=== PATIENT | female | born 1940 | race Caucasian/White ===

== ENCOUNTER → 2017-08-10 | Outpatient (CLI) | payer MEDICARE ==
[2017-08-10 15:49] LABS: Hemoglobin 14.8 g/dL (11.5-16.0)
[2017-08-10 15:58] LABS: Albumin, Blood 3.5 g/dL (3.4-5.0); Anion Gap 9 mmol/L (6-16); Blood Urea Nitrogen 12 mg/dL (8-24); Bun/Creatinine Ratio 10.1 (12.0-20.0); CO2, Blood 23 mmol/L (21-32); Chloride, Blood 110 mmol/L (98-108); Creatinine, Blood 1.19 mg/dL (0.40-1.00); Glomerular Filtration Rate 47 (60-); Glucose, Blood 117 mg/dL (70-99); Phosphorus, Blood 2.7 mg/dL (2.5-4.9); Potassium, Blood 4.7 mmol/L (3.5-5.5); Sodium, Blood 142 mmol/L (136-145)
== END | disposition home or self-care (01) ==
LOC: OLS 15:06 → LAB SHORT 15:06
PROVIDERS: Internal Medicine
DX: N18.3 Chronic kidney disease, stage 3 (moderate) (principal); D63.1 Anemia in chronic kidney disease; N25.81 Secondary hyperparathyroidism of renal origin
CPT/HCPCS: 36415; 80069; 82570; 83970; 84156; 85014; 85018

== ENCOUNTER 2018-04-10 08:47 | Day surgery (SDC) | payer MEDICARE | END 2018-04-10 22:44 | disposition home or self-care (01) | LOC: MOI US 08:47 | PROC: 0HBT3ZX Excision of Right Breast, Percutaneous Approach, Diagnostic (ICD-10-PCS; principal; 2018-04-10) | DX: D24.1 Benign neoplasm of right breast (principal); N60.81 Other benign mammary dysplasias of right breast | CPT/HCPCS: 19083; 77065; 88305; 88342; A4648; G0279 ==

== ENCOUNTER 2018-06-05 08:51 | Day surgery (SDC) | payer MEDICARE ==
[2018-06-05] MEDS ORDERED: LISI20 PO (11:29)
[2018-06-05] MEDS ORDERED: SIMV40 PO (11:30)
[2018-06-05] MEDS ORDERED: Norco 5-325 Ta1 EACH PO (11:31)
[2018-06-05] MEDS ORDERED: NOVOLIN SC (11:31)
== END 2018-06-05 22:51 | disposition home or self-care (01) ==
LOC: MOI US 08:51
PROC: BH40ZZZ Ultrasonography of Right Breast (ICD-10-PCS; principal; 2018-06-05)
DX: N63.41 Unspecified lump in right breast, subareolar (principal)
CPT/HCPCS: 19285; 77065

== ENCOUNTER 2018-06-09 08:55 | Day surgery (SDC) | payer MEDICARE ==
[~2018-06-09] VITALS: Ht 152.4 cm; Wt 137.0 kg
[~2018-06-09 08:55] MED LIST: LISI20 PO; NOVOLIN SC; Norco 5-325 Ta1 EACH PO; SIMV40 PO
--- NOTE | 2018-06-09 09:59 | NUR ---
INTO [facility]. History, Chart, Medications and Allergies reviewed before start of procedure.Patient confirms NPO status and agrees with scheduled surgery. Lungs clear T/O to Auscultation. Surgical site prepped with 2% Chlorhexidine cloth wipe.
--- NOTE | 2018-06-09 12:39 | NUR ---
PATIENT STATES PAIN IS NOT IN HER BREAST BUT IN HER BACK/TAILBONE AREA AND RADIATES DOWN HER LEFT LEG, THIS IS CHRONIC PAIN. STATES SHE COULD HARDLY GET OUT OF BED LAST NIGHT. PATIENT TAKES NORCO AT HOME AT BASELINE.
--- NOTE | 2018-06-09 12:44 | NUR ---
PATIENT REPOSITIONED AGAIN, UP LONG ENOUGH TO EAT SOME JELLO AND TAKE A PAIN PILL, COULDN'T TOLERATE HER SCIATIC PAIN AND REQUESTED TO BE LAID BACK DOWN. PATIENT ADMITS, SHE IS A "LAZY BREATHER" AND WHEN REMINDED TO TAKE PURPOSEFUL DEEP BREATHS SHE ON RA IS AT UP TO 96%. HOWEVER WHEN NOT REMINDED, SHE DROPS TO 89%. 2 L NC PLACED FOR SUPPORT. PLAN TO ALLOW HER TO REST AND ATTEMPT TO SLEEP WHILE THE PAIN PILL COMES UP TO EFFECTIVENESS. ADDITIONALLY, SHE STATES HER LEGS FEEL LIKE HEAVY OSCAR AND SHE DOESN'T THINK SHE COULD STAND RIGHT NOW. I REASSURED HER THAT SHE DOES NOT HAVE TO STAND YET AND WE WOULD GET HER UP TO THE SIDE OF THE BED TO TRIAL BEFORE ATTEMPTING TO STAND OR AMBULATE. PATIENT ABLE TO EASILY MOVE BLE, GOOD SENSATION AND CIRCULATION PRESENT. WILL MONITOR WHILE PATIENT SLEEPS. 98% ON 2 L NC AT THIS TIME.
--- NOTE | 2018-06-09 13:34 | NUR ---
PATIENT UP TO BEDSIDE, WITH STOOL FOR FEET. PATIENT USED WALKER TO REPOSITION HERSELF WITH MINIMAL ASSIST. PATIENT WAS PAINFUL DURING MOVEMENT, BUT APPEARS MORE COMFORTABLE NOW. ABLE TO TAKE IN MORE JELLO AND SOME JUDY CRACKERS, WELL SIP SOME WATER. WILL GO OVER D/C INSTRUCTIONS AND REASSESS FOR D/C HOME. PATIENT NOW ON RA, AND MAINTAINING 92%-95%.
--- NOTE | 2018-06-09 14:09 | NUR ---
PATIENT SUCCESSFUL WITH UP TO BEDSIDE TRIAL. ASSISTANCE TO DRESS, MOSTLY COMPLETED BY THE PATIENT. D/C INSTRUCTIONS GIVEN WITH STATED UNDERSTANDING AND RIDE IS REACHED AND ON HER WAY. PATIENT AWAITING THE RESTROOM PRIOR TO LEAVING DEPARTMENT. UP IN REGULAR BARIATRIC WHEELCHAIR WITH LIMITED DIFFICULTY DUE TO BACK PAIN.
== END 2018-06-09 14:33 | disposition home or self-care (01) ==
LOC: RAD 08:55 → ORSCMMR 09:00 → ORD 11:00 → RAD 14:33
DX: D24.1 Benign neoplasm of right breast (principal); I12.9 Hypertensive chronic kidney disease with stage 1 through stage 4 chronic kidney disease, or unspecified chronic kidney disease; E11.22 Type 2 diabetes mellitus with diabetic chronic kidney disease; N18.3 Chronic kidney disease, stage 3 (moderate); E78.00 Pure hypercholesterolemia, unspecified; Z79.899 Other long term (current) drug therapy; Z79.82 Long term (current) use of aspirin; Z88.0 Allergy status to penicillin
CPT/HCPCS: 76098; 82947; A9270-GY; J0690; J1100; J2405; J2704; J7120; Q9968

== ENCOUNTER 2018-09-22 23:42 | Inpatient (IN) | payer MEDICARE ==
[~2018-09-22] VITALS: Ht 154.9 cm; Wt 127.7 kg
[~2018-09-22 23:42] MED LIST changes: -LISI20 PO; -NOVOLIN SC; +Percocet 5-3251 EACH PO; -SIMV40 PO
[2018-09-23 02:56] LABS: Source, Urine Catheter
[2018-09-23 03:02] LABS: Appearance, Urine Turbid (Clear); Bilirubin, Urine Neg (Neg); Blood, Urine 4+ (Neg); Color, Urine Pale Yellow (P-Yellow); Glucose Qualitative, Urine Neg (Neg); Ketones, Urine Neg (Neg); Leukocyte Esterase, Urine 3+ (Neg); Nitrite, Urine Pos (Neg); Protein, Urine 3+ (Neg); Specific Gravity, Urine 1.015 (1.003-1.022); Urobilinogen, Urine NORM (Normal)
[2018-09-23 03:13] LABS: BASOPHILS ABSOLUTE AUTO 0.02 K/mm3 (0.00-0.23); BASOPHILS PERCENT AUTO 0 % (0-2); EOSINOPHILS ABSOLUTE AUTO 0.01 K/mm3 (0.00-0.68); EOSINOPHILS PERCENT AUTO 0 % (0-6); Hematocrit 32.9 % (33.0-51.0); Hemoglobin 10.2 g/dL (11.5-16.0); IMMATURE GRAN ABSOLUTE AUTO 0.08 K/mm3 (0.00-0.10); IMMATURE GRAN PERCENT AUTO 1 % (0-1); LYMPHOCYTES ABSOLUTE AUTO 0.64 K/mm3 (0.84-5.20); LYMPHOCYTES PERCENT AUTO 10 % (21-46); MONOCYTES ABSOLUTE AUTO 0.83 K/mm3 (0.16-1.47); MONOCYTES PERCENT AUTO 13 % (4-13); Mean Corpuscular HGB 30.8 pg (26.0-34.0); Mean Corpuscular Volume 99 fL (80-100); NEUTROPHILS ABSOLUTE AUTO 4.95 K/mm3 (1.96-9.15); NEUTROPHILS PERCENT AUTO 76 % (41-73); Platelet Count 178 K/mm3 (150-400); RDW Coefficient Variation 14.2 % (11.7-14.2); Red Blood Cell Count 3.31 M/mm3 (3.80-5.20); White Blood Cell Count 6.53 K/mm3 (4.00-11.30)
[2018-09-23 03:16] LABS: Bacteria Many /hpf; Red Blood Cells, Urine Rare /hpf (0-2); Squamous Epithelial Cells Not Seen /hpf (Few); White Blood Cells, Urine TNTC /hpf (0-5)
[2018-09-23 03:31] LABS: Albumin, Blood 2.3 g/dL (3.4-5.0); Albumin/Globulin Ratio 0.6 (0.8-1.8); Bilirubin, Total 1.1 mg/dL (0.1-1.0); Bun/Creatinine Ratio 19.1 (12.0-20.0); Calcium, Blood 8.5 mg/dL (8.5-10.1); Creatinine, Blood 1.88 mg/dL (0.40-1.00); Potassium, Blood 4.9 mmol/L (3.5-5.5); Total Protein, Blood 6.3 g/dL (6.4-8.2)
[2018-09-23 08:53] LABS: BASOPHILS ABSOLUTE AUTO 0.02 K/mm3 (0.00-0.23); BASOPHILS PERCENT AUTO 0 % (0-2); EOSINOPHILS ABSOLUTE AUTO 0.01 K/mm3 (0.00-0.68); EOSINOPHILS PERCENT AUTO 0 % (0-6); Hematocrit 34.2 % (33.0-51.0); Hemoglobin 10.6 g/dL (11.5-16.0); IMMATURE GRAN ABSOLUTE AUTO 0.07 K/mm3 (0.00-0.10); IMMATURE GRAN PERCENT AUTO 1 % (0-1); LYMPHOCYTES ABSOLUTE AUTO 0.73 K/mm3 (0.84-5.20); LYMPHOCYTES PERCENT AUTO 12 % (21-46); MONOCYTES ABSOLUTE AUTO 0.68 K/mm3 (0.16-1.47); MONOCYTES PERCENT AUTO 11 % (4-13); Mean Corpuscular HGB 30.5 pg (26.0-34.0); Mean Corpuscular Volume 99 fL (80-100); Mean Platelet Volume 10.1 fL (9.1-12.4); NEUTROPHILS ABSOLUTE AUTO 4.58 K/mm3 (1.96-9.15); NEUTROPHILS PERCENT AUTO 75 % (41-73); Platelet Count 181 K/mm3 (150-400); RDW Coefficient Variation 14.2 % (11.7-14.2); RDW Standard Deviation 51.1 fL (35.1-46.3); Red Blood Cell Count 3.47 M/mm3 (3.80-5.20); White Blood Cell Count 6.09 K/mm3 (4.00-11.30)
[2018-09-23] MEDS ORDERED: Humulin N100 UNIT/1 SC (09:18)
[2018-09-23] MEDS ORDERED: Econazole Nitra15 GM TP (09:18)
--- NOTE | 2018-09-23 12:42 | NUR ---
PT OFF FLOOR FOR ENDOSCOPY.
--- NOTE | 2018-09-23 12:42 | NUR ---
INTO [facility] ADMISSION STARTED DR CASTORENA AT BEDSIDE
--- NOTE | 2018-09-23 15:50 | NUR ---
PT RETURNED FROM DAY SURGERY AND IS AO X 2 ON ARRIVAL TO PCU. VSS CHARTED. PT VERY SOMNOLENT. SLEEPS FOR NEXT FEW HOURS. PT WILL EAT CLEAR LIQUIDS FOR DINNER AND THEN ADVANCE TOLERATED.
--- NOTE | 2018-09-23 16:15 | NUR ---
RECIEVED TELEPHONE REPORT FROM SHIP/REC/DOC CONTROLANSON GANDHI. PER REPORT PT HAD AN UPPER ENDOSCOPY FOLLOWING A LARGE BOUT OF COFFEE GROUND EMESIS IN THE ED. PT WAS SENT TO PCU AFTER THE PROCEDURE AND THEN TRANSFERED TO MEDICAL FLOOR ARRIVED ON MEDICAL AT 1628.
--- NOTE | 2018-09-23 18:54 | NUR ---
SHIFT SUMMARY- PT HAD AN UPPER ENDOSCOPY WITH THREE BIOPSYS TAKEN AND CAUDERIZATION OF A BLEEDING ULCER THAT WAS ALSO CLIPPED PER REPORT FROM TRANSPORT AIDEANSON GANDHI. PT ALERT AND ORIENTED, C/O PAIN THIS EVENING AND WAS MEDICATED WITH 25MCG OF FENTANYL. PT STATES HER IV IN THE AC IS PAINFUL. WILL SWITCH TO THE OTHER IV SITE FOR FLIUD ADMINISTRATION.
--- NOTE | 2018-09-23 21:35 | NUR ---
DR Gibbons updated on PT's BP and IV fluid order expiring post EGD with GI bleed. PT did co some dizziness. Oder for 1 l NS obtained and KPad order obtained. Tristan hose to decrease edema to bilat LE. Tolerating some clear liquids. Not out of bed. Had XRAYS bilat le earlier no fx. Fall precautions continue.
[2018-09-24 06:17] LABS: BASOPHILS ABSOLUTE AUTO 0.02 K/mm3 (0.00-0.23); BASOPHILS PERCENT AUTO 0 % (0-2); EOSINOPHILS ABSOLUTE AUTO 0.07 K/mm3 (0.00-0.68); EOSINOPHILS PERCENT AUTO 1 % (0-6); Hematocrit 30.1 % (33.0-51.0); Hemoglobin 9.3 g/dL (11.5-16.0); IMMATURE GRAN ABSOLUTE AUTO 0.09 K/mm3 (0.00-0.10); IMMATURE GRAN PERCENT AUTO 2 % (0-1); LYMPHOCYTES ABSOLUTE AUTO 0.94 K/mm3 (0.84-5.20); LYMPHOCYTES PERCENT AUTO 16 % (21-46); MONOCYTES ABSOLUTE AUTO 0.72 K/mm3 (0.16-1.47); MONOCYTES PERCENT AUTO 12 % (4-13); Mean Corpuscular HGB Conc 30.9 g/dL (31.5-36.5); Mean Corpuscular Volume 100 fL (80-100); Mean Platelet Volume 10.1 fL (9.1-12.4); NEUTROPHILS ABSOLUTE AUTO 3.99 K/mm3 (1.96-9.15); NEUTROPHILS PERCENT AUTO 69 % (41-73); Platelet Count 181 K/mm3 (150-400); RDW Coefficient Variation 14.2 % (11.7-14.2); RDW Standard Deviation 52.8 fL (35.1-46.3); White Blood Cell Count 5.83 K/mm3 (4.00-11.30)
[2018-09-24 07:07] LABS: Magnesium, Blood 1.8 mg/dL (1.6-2.4)
[2018-09-24 07:08] LABS: Albumin, Blood 2.1 g/dL (3.4-5.0); Albumin/Globulin Ratio 0.6 (0.8-1.8); Bilirubin, Total 0.8 mg/dL (0.1-1.0); Creatinine, Blood 1.65 mg/dL (0.40-1.00); Globulin, Blood 3.6 g/dL (2.2-4.0); Potassium, Blood 4.1 mmol/L (3.5-5.5); Total Protein, Blood 5.7 g/dL (6.4-8.2)
--- NOTE | 2018-09-24 19:44 | NUR ---
SHIFT SUMMARY: NO ACUTE CHANGES TO REPORT THIS SHIFT. PT A&O; CALM AND COOPERATIVE WITH CARE. MEDICATED FOR BLE PAIN PER EMAR. PHYSICAL THERAPY SAW PT FOR EVAL & TREAT; LIMITED PARTICIPATION FROM PATIENT. FLUID REHYDRATION COMPLETED THIS SHIFT. AWAITING D/C PLAN. IV ABX CONTINUING. REPORT GIVEN TO ONCOMING RN.
--- NOTE | 2018-09-25 04:25 | NUR ---
78 YEAR OLD FEMALE WITH MULTIPLE FALLS AT HOME AND COMPLAINTS OF BILAT LE PAIN CONTINUES TO REQUIRE PAIN MEDS FREQUENTLY FOR ACUTE BACK AND LE PAIN, LT LE MORE PAINFUL. iMAGING SHOWED NO ACUTE FRACTURES. CONTINUES ON IV ROCEPHIN TO TREAT UTI. dIABETIC ON CHRONIC INSULIN 70/30. TOLERATING DIET SOFT ASKS FOR HS SNACK. DOES NOT TOLERATE UP OUT OF BED YET DUE TO ACUTE PAIN AND WEAKNESS, OBESITY MAKES IT VERY DIFFICULT TO MOVE AND NEEDS 2 MAX ASSIST FOR BED MOBILITY AND TOILETING. OFFERED TOILETING IS INCONTINENT. sKIN CARE BILAT FEET AND PER AREA. MOISTURE PRESSURE AND DIABETES AND OBESITY PUTS SKIN AT RISK. CALMASEPTIC USED ON RT HEET FOOT AND LT FOOT. HX OF SKIN LESIONS. CALMASEPTIC TO JENNA AND ANAL AREA. 2 MAX FOR TURNS AND REPOSITIONING. pt SAYS SHE [facility] BUT WAS UNABLE TO TRANSFER TODAY.
[2018-09-25 08:10] LABS: BASOPHILS ABSOLUTE AUTO 0.03 K/mm3 (0.00-0.23); BASOPHILS PERCENT AUTO 0 % (0-2); EOSINOPHILS ABSOLUTE AUTO 0.11 K/mm3 (0.00-0.68); EOSINOPHILS PERCENT AUTO 2 % (0-6); Hematocrit 29.6 % (33.0-51.0); IMMATURE GRAN ABSOLUTE AUTO 0.29 K/mm3 (0.00-0.10); IMMATURE GRAN PERCENT AUTO 4 % (0-1); LYMPHOCYTES ABSOLUTE AUTO 1.37 K/mm3 (0.84-5.20); LYMPHOCYTES PERCENT AUTO 19 % (21-46); MONOCYTES ABSOLUTE AUTO 0.72 K/mm3 (0.16-1.47); MONOCYTES PERCENT AUTO 10 % (4-13); Mean Corpuscular HGB 30.1 pg (26.0-34.0); Mean Corpuscular HGB Conc 30.4 g/dL (31.5-36.5); Mean Corpuscular Volume 99 fL (80-100); Mean Platelet Volume 10.3 fL (9.1-12.4); NEUTROPHILS ABSOLUTE AUTO 4.76 K/mm3 (1.96-9.15); NEUTROPHILS PERCENT AUTO 65 % (41-73); Platelet Count 183 K/mm3 (150-400); RDW Coefficient Variation 14.2 % (11.7-14.2); RDW Standard Deviation 51.4 fL (35.1-46.3); Red Blood Cell Count 2.99 M/mm3 (3.80-5.20); White Blood Cell Count 7.28 K/mm3 (4.00-11.30)
[2018-09-25 08:32] LABS: Bun/Creatinine Ratio 21.2 (12.0-20.0); Calcium, Blood 7.8 mg/dL (8.5-10.1); Creatinine, Blood 1.51 mg/dL (0.40-1.00); Magnesium, Blood 1.9 mg/dL (1.6-2.4); Potassium, Blood 4.1 mmol/L (3.5-5.5)
--- NOTE | 2018-09-25 16:55 | NUR ---
SHIFT SUMMARY- PT C/O BACK/LEG/FEET PAIN. MEDS GIVEN PER EMAR. PT DENIES SOB. DENIES N/V. NSR AT 75 PER PCU MACHINE SOLE LEVELER. PHYSICAL THERAPY AND OCCUPATIONAL THERAPY IN TO WORK WITH PT TODAY. LIFT TO CHAIR. NO OTHER SIGNIFICANT CHANGES THIS SHIFT.
--- NOTE | 2018-09-26 06:28 | NUR ---
SHIFT SUMMARY: PATIENT HAD A ROUGH NIGHT WITH HER BACK HURTING OFF AND ON, FROM HER TAIL BONE TO HER SIATIC PAIN. WE REPOSITIONED HER MULTIPLE TIMES AND GAVE HER PAIN MEDS. SHE WOULD SLEEP FOR SHORT PERIODS OF TIME AND WAKE UP IN PAIN AGAIN. GIVE HER MORE PAIN MEDS AND REPOSITION. SHE FINALLY FELL TO SLEEP THIS MORNING. IV INFUSED WELL THROUGHOUT THE NIGHT, MEDS WERE GIVEN PER EMAR. SHE DENIED ANY OTHER CHANGES OR CONCERNS. WILL REPORT TO DAY SHIFT RN.
--- NOTE | 2018-09-26 08:15 | NUR ---
PT IRRITABLE COOP A/O. STATES SOME PAIN IN TAILBONE AND LEGS. MED PER EMAR. H/R REG, MURMER IS NOTED. PER TELE NSR AT 79, LUNGS CLEAR, RESP EASY, UNLABORED. ON R.A. BT X4 LAST BM 2 DAYS. VOIDS INCONT. IN ATTENDS. CDI AT THIS TIME. L FOOT EDEMA +3, R FOOT +1. BLACK ENDS OF TOES, SCAB RT FOOT AND HEAL. BED IN LOW POSITION, CALL LITE IN REACH, CALLS APPROP
[2018-09-26 08:25] LABS: Hematocrit 28.6 % (33.0-51.0); Hemoglobin 8.9 g/dL (11.5-16.0); Mean Corpuscular HGB 31.2 pg (26.0-34.0); Mean Corpuscular HGB Conc 31.1 g/dL (31.5-36.5); Mean Corpuscular Volume 100 fL (80-100); Platelet Count 205 K/mm3 (150-400); RDW Coefficient Variation 13.9 % (11.7-14.2); RDW Standard Deviation 51.3 fL (35.1-46.3); Red Blood Cell Count 2.85 M/mm3 (3.80-5.20); White Blood Cell Count 6.48 K/mm3 (4.00-11.30)
[2018-09-26 08:43] LABS: Bun/Creatinine Ratio 21.5 (12.0-20.0); Calcium, Blood 7.8 mg/dL (8.5-10.1); Creatinine, Blood 1.49 mg/dL (0.40-1.00); Potassium, Blood 4.4 mmol/L (3.5-5.5)
--- NOTE | 2018-09-26 18:32 | NUR ---
PT PLEASANT TODAY. PAIN MANAGED WITH TYLENOL THIS AFT. AND NORCO THIS AM. PT ABLE TO GET FROM BED TO CHAIR WITH PT/OT AND BACK AN HOUR LATER. 2 ASST WITH GAIT BELT. PT WANTS TO GO HOME, BUT NOT TO GET MOBILE . EXPLAINED NEED FOR EXERCISE AND GETTING STRONGER. PT APPEARS NOT MOTIVATED. STATES I'LL DO WHEN I GET HOME. NO OTHER CONCERNS AT THIS TIME. BED IN LOW POSITION CALL LITE IN REACH, CALLS APPROP
--- NOTE | 2018-09-27 07:30 | NUR ---
SHIFT SUMMARY: DEVONTE HAD ANOTHER ROUGH NIGHT, HER SCIATIC NERVE CONTINUED TO GIVE HER A PROBLEM. SHE HAD TO BE REPOSITIONED EVERY HOUR TO EVERY HALF HOUR TO HELP TRY TO RELEIVE THE PAIN. GAVE HER TYELENOL, NORCO AND FENTANYL THIS SHIFT. AT WHICH EACH ONLY RELEIVED FOR SHORT PERIOD OF TIME. POSITIONING WAS THE ONLY RELEIVE SHE WILL GET BUT AGAIN FOR SHORT PERIODS OF TIME. SHE ATTEMPTED TO HAVE BOWEL MOVEMENT THIS AM, ONLY A SMEAR WAS NOTED. VS WNL THROUGHOUT SHIFT, MEDS WERE GIVEN PER EMAR. IV FLUSHED AND PATENT. NO OTHER CHANGES THIS SHIFT, GAVE REPORT TO DAY SHIFT RN.
--- NOTE | 2018-09-27 18:32 | NUR ---
SHIFT SUMMARY- PT A/O, PT MEDICATED WITH NORCO AND TYLENOL FOR SCIATICA PAIN. PT UP TO BSC AND CHAIR WITH 1-2 ASSIST AND FWW. PT NEEDS MOTIVATION TO BE GETTING OUT OF BED. PT WILL AGREE AND STATES SHE WANTS TO GET STRONGER THAN REFUSES TO GET OUT OF BED LATER. PT HAS AGREED FOR SNF UPON DISCHARGE. BRIE CLEAR, ON RA. TELE NSR AT 83. BLE FOOT EDEMA. NO OTHER ACUTE CHANGES THIS SHIFT.
--- NOTE | 2018-09-28 03:36 | NUR ---
SHIFT SUMMARY PATIENT HAD NO ACUTE CHANGES OBSERVED THIS SHIFT. AXOX 3 AND 2 PERSON ASSIST W/FWW TO BSC AND BEDFAST AT TIMES. PIVS REMAIN INTACT. BELLING MACHINE OPERATOR REPORTS NSR 73. AK CHIN AND TAKES MEDICATION WHOLE IN WATER. REPORTS SCIATICA PAIN X 3 AND RECEIVED NORCO, TYLENOL AND FENTANYL 50 MCG PER EMAR. VSS/AFEBRILE. DENIES SOB AND N/V. CALL LIGHT IN REACH. BED IN LOWEST POSITION. WILL CONTINUE TO MONITOR UNTIL DAY SHIFT NURSE ASSUMES CARE.
--- NOTE | 2018-09-28 18:33 | NUR ---
NO ACUTE CHANGES TO PATIENT. SHE WAS UP IN CHAIR TODAY AFTER A LOT OF PERSUASION FROM STAFF . SHE CONTINUES TO HAVE PAIN IN HER BACK AND MEDICATED PER EMAR. SHE IS PLEASANT AND COOPERATIVE AFTER BEING ENCOURAGED BY STAFF..
--- NOTE | 2018-09-29 04:23 | NUR ---
SHIFT SUMMARY PATIENT HAD NO ACUTE CHANGES OBSERVED THIS SHIFT. TWO PERSON TRANSFER FROM CHAIR BACK TO BED WITH GAIT AND FWW STAND PIVOT. REPORTED SCIATICA PAIN T/O THE SHIFT. NORCO AND TYLENOL GIVEN PER EMAR. PIVS REMAIN INTACT. ICU TECH REPORTED NSR 84. CBG 174. VSS/AFEBRILE. DENIES SOB AND N/V. CALL LIGHT IN REACH. BED IN LOWEST POSITION. WILL CONTINUE TO MONITOR UNTIL DAY SHIFT NURSE ASSUMES CARE.
[2018-09-29] MEDS ORDERED: NOVOLIN 70100 UNIT/1 SC (11:14)
[2018-09-29] MEDS ORDERED: Humalog100 UNIT/3 SC (11:14)
[2018-09-29] MEDS ORDERED: PANT40 PO (11:16)
--- NOTE | 2018-09-29 12:58 | NUR ---
1230 PATIENT HAD IVS REMOVED PRIOR TO DISCHARGE. NO SS OF INFECTION NOTED. PATINET MEDS FAXED TO PHARMACY AND DISCHARGE PACKET PREPARED BY CHARGE NURSE. HARD SCRIPT PROVIDED. PATIENT PICKED UP BY TRANSFORT AT 1250 AND TAKEN TO PSYCHIATRIC. THIS NURSE CALLED AND GAVE REPORT TO OMERO.
== END 2018-09-29 12:36 | DRG 378 ==
LOC: ER 23:42 → MEDS 09-23 05:44 → PCU 09-23 05:44 → ERHOLD 09-23 05:44 → MEDS 09-23 08:56 → PCU 09-23 09:00 → MEDS 09-23 16:25 → ENPENDDIS 09-29 10:00 → MEDS 09-29 12:36
PROVIDERS: Emergency Medicine; Hospitalist; Internal Medicine; Student in an Organized Health Care Education/Training Program; ADMIT Internal Medicine
PROC: 0DB68ZX Excision of Stomach, Via Natural or Artificial Opening Endoscopic, Diagnostic (ICD-10-PCS; 2018-09-23)
PROC: 0DB58ZX Excision of Esophagus, Via Natural or Artificial Opening Endoscopic, Diagnostic (ICD-10-PCS; 2018-09-23)
PROC: 0W3P8ZZ Control Bleeding in Gastrointestinal Tract, Via Natural or Artificial Opening Endoscopic (ICD-10-PCS; principal; 2018-09-23 12:45)
PROC: 0DB98ZX Excision of Duodenum, Via Natural or Artificial Opening Endoscopic, Diagnostic (ICD-10-PCS; 2018-09-23 12:45)
DX: K31.811 Angiodysplasia of stomach and duodenum with bleeding (principal); Z68.43 Body mass index [BMI] 50.0-59.9, adult; N39.0 Urinary tract infection, site not specified; N17.9 Acute kidney failure, unspecified; D62 Acute posthemorrhagic anemia; I69.351 Hemiplegia and hemiparesis following cerebral infarction affecting right dominant side; Z87.891 Personal history of nicotine dependence; E66.01 Morbid (severe) obesity due to excess calories; S80.01XA Contusion of right knee, initial encounter; S80.02XA Contusion of left knee, initial encounter; E78.5 Hyperlipidemia, unspecified; E86.0 Dehydration; W19.XXXA Unspecified fall, initial encounter; Y93.9 Activity, unspecified; Z79.4 Long term (current) use of insulin; N18.3 Chronic kidney disease, stage 3 (moderate); K20.9 Esophagitis, unspecified; I95.1 Orthostatic hypotension; I12.9 Hypertensive chronic kidney disease with stage 1 through stage 4 chronic kidney disease, or unspecified chronic kidney disease; K26.9 Duodenal ulcer, unspecified as acute or chronic, without hemorrhage or perforation; E11.22 Type 2 diabetes mellitus with diabetic chronic kidney disease
CPT/HCPCS: 36415; 73562-LT; 73562-RT; 73620; 74176; 80048; 80053; 81001; 82271; 82947; 83605; 83690; 83735; 85025; 85027; 87040; 87077; 87086; 87186; 88305; 88312; 88342; 94760; 96361; 96365; 96372-59; 96375; 96376; 97110; 97162; 97166; 97530; 97535; 99285-25; A9270; C9113; J0696; J1170; J1650; J1815; J2405; J2550; J2704; J2765; J3010; J7030; J7120; P9612

== ENCOUNTER 2018-10-22 10:41 | Observation (INO) | payer MEDICARE ==
[~2018-10-22] VITALS: Ht 154.9 cm; Wt 127.0 kg
[~2018-10-22 10:41] MED LIST changes: +Econazole Nitra15 GM TP; +Humalog100 UNIT/3 SC; +Humulin N100 UNIT/1 SC; +NOVOLIN 70100 UNIT/1 SC; +PANT40 PO
[2018-10-22] MEDS ORDERED: Novolin R100 UNIT/M (10:56)
[2018-10-22] MEDS ORDERED: FURO20 PO ×3 (10:56→18:50)
[2018-10-22] MEDS ORDERED: TOBRAMYCIN (10:56)
[2018-10-22] MEDS ORDERED: Zocor20 MG PO (10:57)
[2018-10-22] MEDS ORDERED: NITR100CA PO ×2 (10:57→18:46)
[2018-10-22 11:42] LABS: Source, Urine Voided
[2018-10-22 11:50] LABS: Bilirubin, Urine Neg (Neg); Blood, Urine 2+ (Neg); Glucose Qualitative, Urine Neg (Neg); Ketones, Urine Neg (Neg); Leukocyte Esterase, Urine 3+ (Neg); Nitrite, Urine Neg (Neg); Protein, Urine 2+ (Neg); Specific Gravity, Urine 1.015 (1.003-1.022); Urobilinogen, Urine NORM (Normal)
[2018-10-22 11:56] LABS: Appearance, Urine Cloudy (Clear); Color, Urine Yellow (P-Yellow)
[2018-10-22 12:13] LABS: BASOPHILS ABSOLUTE AUTO 0.03 K/mm3 (0.00-0.23); BASOPHILS PERCENT AUTO 1 % (0-2); EOSINOPHILS ABSOLUTE AUTO 0.21 K/mm3 (0.00-0.68); EOSINOPHILS PERCENT AUTO 3 % (0-6); Hemoglobin 11.2 g/dL (11.5-16.0); IMMATURE GRAN ABSOLUTE AUTO 0.17 K/mm3 (0.00-0.10); IMMATURE GRAN PERCENT AUTO 3 % (0-1); LYMPHOCYTES ABSOLUTE AUTO 1.32 K/mm3 (0.84-5.20); LYMPHOCYTES PERCENT AUTO 22 % (21-46); MONOCYTES ABSOLUTE AUTO 0.49 K/mm3 (0.16-1.47); MONOCYTES PERCENT AUTO 8 % (4-13); Mean Corpuscular HGB 29.6 pg (26.0-34.0); Mean Corpuscular HGB Conc 31.1 g/dL (31.5-36.5); Mean Corpuscular Volume 95 fL (80-100); Mean Platelet Volume 10.3 fL (9.1-12.4); NEUTROPHILS ABSOLUTE AUTO 3.92 K/mm3 (1.96-9.15); NEUTROPHILS PERCENT AUTO 64 % (41-73); Platelet Count 199 K/mm3 (150-400); RDW Coefficient Variation 14.4 % (11.7-14.2); RDW Standard Deviation 50.5 fL (35.1-46.3); Red Blood Cell Count 3.78 M/mm3 (3.80-5.20); White Blood Cell Count 6.14 K/mm3 (4.00-11.30)
[2018-10-22 12:19] LABS: Red Blood Cells, Urine 0-2 /hpf (0-2); Squamous Epithelial Cells Few /hpf (Few); White Blood Cells, Urine 50-100 /hpf (0-5)
[2018-10-22 12:20] LABS: Bacteria Few /hpf
[2018-10-22 12:32] LABS: Albumin, Blood 2.9 g/dL (3.4-5.0); Albumin/Globulin Ratio 0.8 (0.8-1.8); Bilirubin, Total 0.3 mg/dL (0.1-1.0); Bun/Creatinine Ratio 34.6 (12.0-20.0); Calcium, Blood 8.8 mg/dL (8.5-10.1); Creatinine, Blood 2.4 mg/dL (0.40-1.00); Globulin, Blood 3.6 g/dL (2.2-4.0); Potassium, Blood 4.9 mmol/L (3.5-5.5); Total Protein, Blood 6.5 g/dL (6.4-8.2)
[2018-10-22] MEDS ORDERED: LISI20 PO (13:33)
[2018-10-22] MEDS ORDERED: SIMV40 PO (13:34)
[2018-10-22] MEDS ORDERED: Humulin N100 UNIT/1 (13:34)
[2018-10-22] MEDS ORDERED: GABA300 PO (13:34)
[2018-10-22] MEDS ORDERED: Hydrocodone-Ap1 EA26 PO (13:35)
[2018-10-22] MEDS ORDERED: OXYB5 PO (13:52)
[2018-10-22] MEDS ORDERED: ALBU90OI61 INH (13:53)
[2018-10-22] MEDS ORDERED: Sucralfate1 GM/10 ML PO (13:54)
[2018-10-22] MEDS ORDERED: TAMS.4ER PO (13:55)
[2018-10-22] MEDS ORDERED: MIRALAX17 GM PO ×2 (13:55→18:49)
[2018-10-22] MEDS ORDERED: BISA10S PR (13:58)
[2018-10-22] MEDS ORDERED: Milk Of Ma400 MG/5 M PO (13:59)
[2018-10-22] MEDS ORDERED: ACET500 PO (14:00)
[2018-10-22] MEDS ORDERED: BENADRYL25 MG PO (14:02)
[2018-10-22] MEDS ORDERED: CVS DISPOSABLE399 ML PR (14:03)
[2018-10-22] MEDS ORDERED: GLYCERIN1 EACH PR (14:04)
[2018-10-22] MEDS ORDERED: SUCR1 PO (18:44)
[2018-10-22] MEDS ORDERED: NOVOLIN 70100 UNIT/2 SC (18:56)
--- NOTE | 2018-10-22 18:59 | NUR ---
PT SETTLED INTO ROOM. PT HAS BEEN HAVING REPORTED PAIN. TREATED PER EMAR AND HAS NOT BEEN EFFECTIVE. BED SEEMS TO BE VERY UNCOMFORTABLE AND CHARGE WAS NOTIFIED BED CHANGE MAY BE NEEDED. PT HELPED TO CHANGE POSITIONS MULTIPLE TIMES WITH NOT EFFECT.
[2018-10-23 01:06] LABS: Source, Urine Catheter
[2018-10-23 01:09] LABS: Appearance, Urine Cloudy (Clear); Bilirubin, Urine Neg (Neg); Blood, Urine 2+ (Neg); Color, Urine Yellow (P-Yellow); Glucose Qualitative, Urine Neg (Neg); Ketones, Urine Neg (Neg); Leukocyte Esterase, Urine 3+ (Neg); Nitrite, Urine Neg (Neg); Protein, Urine 2+ (Neg); Urobilinogen, Urine NORM (Normal)
[2018-10-23 01:19] LABS: Red Blood Cells, Urine 0-2 /hpf (0-2); White Blood Cells, Urine TNTC /hpf (0-5)
[2018-10-23 01:20] LABS: Bacteria Many /hpf; Squamous Epithelial Cells Few /hpf (Few)
[2018-10-23 05:19] LABS: Bun/Creatinine Ratio 37.6 (12.0-20.0); Calcium, Blood 8.6 mg/dL (8.5-10.1); Creatinine, Blood 1.94 mg/dL (0.40-1.00); Potassium, Blood 4.4 mmol/L (3.5-5.5)
--- NOTE | 2018-10-23 07:39 | NUR ---
SUMMARY PT WITH INCONTINENCE OF BLADDER OVERFLOW TONIGHT WITH PVR OF 755. PT WITH SIGNIFICANT EDEMA TO PERINEUM AND LABIA.YEAST APPEARING DISCHARGE FROM VAGINAL AREA NOTED. PT ALSO WITH YEAST LIKE RASH UNDER BREASTS.SCALDING NOTED FROM URINARY OVERFLOW CONSTANT TO JENNA RECTAL AREAS.PT ALSO REPORTS FEELING RECTAL PRESSURE.I CALLED HOSPITALIST WITH ORDERS RECEIVED FOR MEDS AND CHRIS. PT WAS CLEANSED THOROUGHLY PRIOR TO CATH.PER HOSPITALIST ORDERS,CHRIS WAS PLACED PER Abe BARKER USING LIDOCAINE TO HELP DECREASE PAIN TO RAW SCALDED AREAS PT PRIOR WAS UNABLE TO TOLERATE THE LIFTING OF PANUS AND LABIA FOR CATH.CHRIS QUICKLY RETURNED 1000 ML WITH PT REPORT OF FEELING MUCH BETTER AFTER. ACTUALLY WANTING TO HAVE A SNACK.PT REPORTED RECTAL PRESSURE GONE AFTER CHRIS PLACED. I CALLED FOR CX ORDER ON URINE DUE TO CLOUDINESS.ALSO RECEIVED ORDER FOR DIFLUCAN AND WAS GIVEN. CHRIS AT THIS TIME FLOWING FREELY. PT REQUESTS DAY RN ALLOW HER TO SLEEP EXTRA THIS AM SHE IS FINALLY COMFORTABLE DUE TO CHRIS,EGGCRATE,PAIN PILL. PT SLEEPING AT THIS TIME.
--- NOTE | 2018-10-23 16:50 | NUR ---
Per admit trigger, I met with Mackenzie to offer prayer and emotional support. She declined prayer saying she would rather have RN come to help her "poop." Informed RN. I will remain available.
--- NOTE | 2018-10-23 18:24 | NUR ---
SHIFT SUMMARY PT HAS BEEN SLEEPING A LOT OF THE SHIFT. PT C/O CHRONIC BACK PAIN AND THIS RN MEDICATED PER EMAR. PHYSICAL AND OCCUPATIONAL THERAPY TRIED WORKING WITH PT BUT PT DECLINED TO GET OUT OF BED DUE TO PAIN IN BACK. PT HAS BEEN TRYING TO HAVE A BM THIS SHIFT. THIS RN ADMINISTERED MIRALAX, MOM, AND A SUPPOSITORY. NO BM AT THIS TIME. PT HAS HAD NO APPETITE. PLANS FOR PT TO DISCHARGE BACK TO [facility] TOMORROW. NO ACUTE CHANGES. CALL LIGHT IN REACH. WILL CONTINUE TO MONITOR AND REPORT TO ONCOMING RN.
--- NOTE | 2018-10-24 03:34 | NUR ---
PT with chronic back and lt sciatic pain severe is immobile will not raise head of bed above 25 degrees due to pain. morbid obesity also limits mobility. Pt co constipation and no bm since admission but has very poor oral intake. Had bowel care MOM on day shift and dulcolax supp per rectum with only smears of stool. call center nurse wong every few minutues while awake, multiple requests. Glycerine suppository and glove check found mod amt of pasty brown stool present not blocking release. Encouraged evacuation and oral fluid intake. Unable to pass stool, PT does not take oral fluids beyond sips. DR Senior updated and fleets enema order obtained. PT is hard of hearing and it is difficult to communicate because she does not wear hearing aides. Very forgetful and need to face PT and speak very loudly and she then still says she can't hear. Will administer enema and assess for need for pain med. Nhan patent, has urinary retention acute or chronic. Skin issues with excoriation and rashes and pressure ulcer rt heel. Skin care provided.
[2018-10-24 05:15] LABS: Bun/Creatinine Ratio 32.9 (12.0-20.0); Creatinine, Blood 1.58 mg/dL (0.40-1.00)
--- NOTE | 2018-10-24 11:48 | NUR ---
DISCHARGE PT DISCHARGED BACK TO [facility]. PT TRANSFERRED TO WHEELCHAIR VIA LIFT. PT'S BELONGINGS WITH [facility] SAND SLINGER. THIS RN CALLED REPORT TO RN AT [facility].
== END 2018-10-24 11:23 ==
LOC: ER 10:41 → MEDS 13:21 → ENPENDDIS 10-23 11:06 → MEDS 10-24 11:23
PROVIDERS: Internal Medicine; ADMIT Internal Medicine
DX: N17.9 Acute kidney failure, unspecified (principal); I12.9 Hypertensive chronic kidney disease with stage 1 through stage 4 chronic kidney disease, or unspecified chronic kidney disease; E11.22 Type 2 diabetes mellitus with diabetic chronic kidney disease; N18.3 Chronic kidney disease, stage 3 (moderate); D63.1 Anemia in chronic kidney disease; I69.351 Hemiplegia and hemiparesis following cerebral infarction affecting right dominant side; R82.90 Unspecified abnormal findings in urine; E78.5 Hyperlipidemia, unspecified; E66.01 Morbid (severe) obesity due to excess calories; Z87.891 Personal history of nicotine dependence; Z88.0 Allergy status to penicillin; Z88.2 Allergy status to sulfonamides; Z88.8 Allergy status to other drugs, medicaments and biological substances; Z79.899 Other long term (current) drug therapy; Z79.51 Long term (current) use of inhaled steroids
CPT/HCPCS: 36415; 51702; 80048; 80053; 81001; 82947; 85025; 87086; 93005; 93010; 96360; 96361; 96372; 96372-59; 97110; 97162; 97165; 99285-25; A9270-GY; G0378; J1644; J7120; Q0163

== ENCOUNTER 2019-01-15 12:02 | Inpatient (IN) | payer MEDICARE ==
[~2019-01-15] VITALS: Ht 162.6 cm; Wt 110.6 kg
[~2019-01-15 12:02] MED LIST changes: +ACET500 PO; +ALBU90OI61 INH; +BENADRYL25 MG PO; +BISA10S PR; +CVS DISPOSABLE399 ML PR; +FURO20 PO; +GABA300 PO; +GLYCERIN1 EACH PR; +Humulin N100 UNIT/1; +Hydrocodone-Ap1 EA26 PO; +LISI20 PO; +MIRALAX17 GM PO; +Milk Of Ma400 MG/5 M PO; +NITR100CA PO; +NOVOLIN 70100 UNIT/2 SC; +Novolin R100 UNIT/M; +OXYB5 PO; +SIMV40 PO; +SUCR1 PO; +Sucralfate1 GM/10 ML PO; +TAMS.4ER PO; +TOBRAMYCIN; +Zocor20 MG PO
[2019-01-15] MEDS ORDERED: TOPI25 PO (12:24)
[2019-01-15] MEDS ORDERED: FURO20 PO (12:25)
[2019-01-15] MEDS ORDERED: Aspir 8181 MG PO (12:26)
[2019-01-15] MEDS ORDERED: Zestril30 MG PO (12:27)
[2019-01-15] MEDS ORDERED: CALC.25 PO (12:27)
[2019-01-15] MEDS ORDERED: GABA300 PO (12:28)
[2019-01-15] MEDS ORDERED: ACTOS30 MG PO (12:30)
[2019-01-15 12:38] LABS: Source, Urine Catheter
[2019-01-15 12:52] LABS: BASOPHILS ABSOLUTE AUTO 0.05 K/mm3 (0.00-0.23); BASOPHILS PERCENT AUTO 0 % (0-2); EOSINOPHILS PERCENT AUTO 0 % (0-6); Hemoglobin 13.3 g/dL (11.5-16.0); IMMATURE GRAN PERCENT AUTO 1 % (0-1); LYMPHOCYTES ABSOLUTE AUTO 1.77 K/mm3 (0.84-5.20); LYMPHOCYTES PERCENT AUTO 10 % (21-46); MONOCYTES ABSOLUTE AUTO 1.31 K/mm3 (0.16-1.47); MONOCYTES PERCENT AUTO 7 % (4-13); Mean Corpuscular HGB 27.8 pg (26.0-34.0); Mean Corpuscular HGB Conc 29.6 g/dL (31.5-36.5); Mean Corpuscular Volume 94 fL (80-100); Mean Platelet Volume 10.5 fL (9.1-12.4); NEUTROPHILS ABSOLUTE AUTO 14.57 K/mm3 (1.96-9.15); NEUTROPHILS PERCENT AUTO 82 % (41-73); Platelet Count 349 K/mm3 (150-400); RDW Coefficient Variation 15.9 % (11.7-14.2); RDW Standard Deviation 55.5 fL (35.1-46.3); Red Blood Cell Count 4.78 M/mm3 (3.80-5.20)
[2019-01-15 13:00] LABS: Blood, Urine 3+ (Neg); Glucose Qualitative, Urine Neg (Neg); Ketones, Urine 1+ (Neg); Leukocyte Esterase, Urine 3+ (Neg); Nitrite, Urine Neg (Neg); Protein, Urine 3+ (Neg); Urobilinogen, Urine NORM (Normal)
[2019-01-15 13:02] LABS: Albumin, Blood 3.7 g/dL (3.4-5.0); Albumin/Globulin Ratio 0.9 (0.8-1.8); Bilirubin, Total 0.8 mg/dL (0.1-1.0); Bun/Creatinine Ratio 28.1 (12.0-20.0); Creatinine, Blood 3.03 mg/dL (0.40-1.00); Potassium, Blood 3.8 mmol/L (3.5-5.5); Total Protein, Blood 7.7 g/dL (6.4-8.2)
[2019-01-15 13:12] LABS: Appearance, Urine Hazy (Clear); Bacteria Mod /hpf; Bilirubin, Urine 1+ (Neg); Color, Urine Yellow (P-Yellow); Squamous Epithelial Cells Rare /hpf (Few); White Blood Cells, Urine 50-100 /hpf (0-5)
[2019-01-15 16:08] LABS: BASOPHILS ABSOLUTE AUTO 0.05 K/mm3 (0.00-0.23); BASOPHILS PERCENT AUTO 0 % (0-2); EOSINOPHILS PERCENT AUTO 0 % (0-6); Hematocrit 47.5 % (33.0-51.0); Hemoglobin 14.3 g/dL (11.5-16.0); IMMATURE GRAN ABSOLUTE AUTO 0.15 K/mm3 (0.00-0.10); IMMATURE GRAN PERCENT AUTO 1 % (0-1); LYMPHOCYTES ABSOLUTE AUTO 1.21 K/mm3 (0.84-5.20); LYMPHOCYTES PERCENT AUTO 6 % (21-46); MONOCYTES ABSOLUTE AUTO 1.77 K/mm3 (0.16-1.47); MONOCYTES PERCENT AUTO 9 % (4-13); Mean Corpuscular HGB 27.8 pg (26.0-34.0); Mean Corpuscular HGB Conc 30.1 g/dL (31.5-36.5); Mean Corpuscular Volume 92 fL (80-100); Mean Platelet Volume 10.7 fL (9.1-12.4); NEUTROPHILS ABSOLUTE AUTO 16.77 K/mm3 (1.96-9.15); NEUTROPHILS PERCENT AUTO 84 % (41-73); Platelet Count 270 K/mm3 (150-400); RDW Coefficient Variation 15.8 % (11.7-14.2); RDW Standard Deviation 53.8 fL (35.1-46.3); Red Blood Cell Count 5.14 M/mm3 (3.80-5.20); White Blood Cell Count 19.95 K/mm3 (4.00-11.30)
[2019-01-15 16:49] LABS: International Normalized Ratio 1.66; Prothrombin Time Results 16.8 Sec (9.7-11.5)
[2019-01-15] MEDS ORDERED: Humulin N100 UNIT/1 SC (17:35)
[2019-01-16 04:54] LABS: BASOPHILS ABSOLUTE AUTO 0.04 K/mm3 (0.00-0.23); BASOPHILS PERCENT AUTO 0 % (0-2); EOSINOPHILS ABSOLUTE AUTO 0.02 K/mm3 (0.00-0.68); EOSINOPHILS PERCENT AUTO 0 % (0-6); Hematocrit 36.6 % (33.0-51.0); Hemoglobin 10.5 g/dL (11.5-16.0); IMMATURE GRAN ABSOLUTE AUTO 0.07 K/mm3 (0.00-0.10); IMMATURE GRAN PERCENT AUTO 1 % (0-1); LYMPHOCYTES ABSOLUTE AUTO 1.56 K/mm3 (0.84-5.20); LYMPHOCYTES PERCENT AUTO 12 % (21-46); MONOCYTES PERCENT AUTO 9 % (4-13); Mean Corpuscular HGB 28.5 pg (26.0-34.0); Mean Corpuscular HGB Conc 28.7 g/dL (31.5-36.5); Mean Platelet Volume 10.8 fL (9.1-12.4); NEUTROPHILS ABSOLUTE AUTO 9.83 K/mm3 (1.96-9.15); NEUTROPHILS PERCENT AUTO 78 % (41-73); Platelet Count 207 K/mm3 (150-400); RDW Standard Deviation 58.8 fL (35.1-46.3); Red Blood Cell Count 3.69 M/mm3 (3.80-5.20); White Blood Cell Count 12.62 K/mm3 (4.00-11.30)
[2019-01-16 05:00] LABS: Mean Corpuscular Volume 99 fL (80-100)
[2019-01-16 05:12] LABS: Albumin, Blood 2.6 g/dL (3.4-5.0); Albumin/Globulin Ratio 0.8 (0.8-1.8); Bilirubin, Total 0.6 mg/dL (0.1-1.0); Bun/Creatinine Ratio 28.9 (12.0-20.0); Creatinine, Blood 2.91 mg/dL (0.40-1.00); Globulin, Blood 3.4 g/dL (2.2-4.0); Potassium, Blood 3.8 mmol/L (3.5-5.5)
[2019-01-16 05:13] LABS: Calcium, Blood 7.8 mg/dL (8.5-10.1)
--- NOTE | 2019-01-16 06:00 | NUR ---
SHIFT SUMMARY: VSS EXCEPT BP 94/53 AT 0424. AFEB. MAKING NEEDS KNOWN. MANY REQUESTS THROUGH THE NIGHT. CBG 64 AT 0303- 4 OZ SODA ADMINISTERED. CBG 97 AT 0326. CONSULTED WITH INDOOR LANDSCAPER/GARDENER AND ADMINISTERED PRN IV DEXTROSE. CBG 131 @ 0418. DEVELOPED A HEADACHE AND NAUSEA DURING CBG CHECKS- PRNS ADMINISTERED WITH GOOD EFFECT. PT IS CURRENTLY RESTING QUIETLY WITH EYES CLOSED. INCONTINENT OF URINE, MALODOROUS. VOIDING LARGE AMTS AT A TIME. FORGETFUL AND REPEATS HERSELF/QUESTIONS/COMMENTS. CALL LIGHT IN REACH, BED LOW, ALARM ON.
--- NOTE | 2019-01-16 19:10 | NUR ---
PATIENT A/O TO SELF AND FAMILY, VERY FORGETFUL AND REPEATS HERSELF OFTEN. ON LEVAQUIN FOR UTI. POS BLOOD CX CALLED TO DR. ROWLEY TODAY. HYPOTENSIVE TODAY, 90'S SYSTOLIC. BOLUS GIVEN AND FLUIDS CHANGED TO D5NS @ 175/HR. BLOOD SUGARS Q6 HOURS DUE TO POOR PO INTAKE AND BLOOD SUGARS HAVE BEEN STABLE THIS SHIFT. LUNGS CLEAR.DIM, ON RA. USES CALL LIGHT APPROPRIATELY FOR ASSISTANCE. Q2 TURN. MEPILEX [id number] TO L BUTTOCKS PRESSURE SORE AND REMAINS C/D/I. NORCO STARTED TODAY FOR PAIN WITH STATED RELIEF AND PATIENT RESTED WELL.
--- NOTE | 2019-01-16 23:18 | NUR ---
NAUSEA/ZOFRAN PT CONTINUES TO HAVE INTERMITTENT NAUSEA. OK FOR PT TO RECEIVE 4 MG OF ZOFRAN EARLY PER DANA CAMERON NP. PT LAST DOSE WAS 1803 GIVEN 2101.
--- NOTE | 2019-01-16 23:26 | NUR ---
IVF 175 ML/HR PT HAS IVF AT 175 ML/HR, CONTINUE AT SAME RATE PER DANA CAMERON NP.
--- NOTE | 2019-01-17 05:29 | NUR ---
SHIFT SUMMARY PT HAS HAD INTERMITTENT NAUSEA THIS SHIFT, AND A EPISODE OF HEAVING DURING THE EARLIER PART OF THE SHIFT. PT HAS BEEN MEDICATED PER EMAR WITH EFFECT. PT HAS BEEN AWAKE MOST OF THE NIGHT WATCHING TV. SHE REQUESTS SNACKS AFTER HER NAUSEA HAD SUBSIDED, HER APPETITE SEEMS TO BE IMPRIVING. BG ARE STABLE, PT RECEIVING IVF AT 175 ML/HR PER ORDERS. NO S/S OF RESPIRATORY DISTRESS, LUNGS WITHOUT CRACKLES. NO COMPLAINTS OF SOB. PT INCONTINENT AND REQUIRES TWO STAFF MEMBERS FOR CHANGES. PT A/O BUT FORGETUL. MEDICATED X1 FOR A MATOS. BED IN LOWEST POSITION, CALL LIGHT WITHIN REACH. WILL CONTINUE TO MONITOR AND REPOR TO ONCOMING RN.
[2019-01-17 05:53] LABS: BASOPHILS ABSOLUTE AUTO 0.03 K/mm3 (0.00-0.23); BASOPHILS PERCENT AUTO 1 % (0-2); EOSINOPHILS ABSOLUTE AUTO 0.09 K/mm3 (0.00-0.68); EOSINOPHILS PERCENT AUTO 1 % (0-6); Hematocrit 32.8 % (33.0-51.0); Hemoglobin 9.4 g/dL (11.5-16.0); IMMATURE GRAN ABSOLUTE AUTO 0.06 K/mm3 (0.00-0.10); IMMATURE GRAN PERCENT AUTO 1 % (0-1); LYMPHOCYTES ABSOLUTE AUTO 1.49 K/mm3 (0.84-5.20); LYMPHOCYTES PERCENT AUTO 23 % (21-46); MONOCYTES ABSOLUTE AUTO 0.52 K/mm3 (0.16-1.47); MONOCYTES PERCENT AUTO 8 % (4-13); Mean Corpuscular HGB 27.8 pg (26.0-34.0); Mean Corpuscular HGB Conc 28.7 g/dL (31.5-36.5); Mean Corpuscular Volume 97 fL (80-100); Mean Platelet Volume 10.7 fL (9.1-12.4); NEUTROPHILS ABSOLUTE AUTO 4.39 K/mm3 (1.96-9.15); NEUTROPHILS PERCENT AUTO 67 % (41-73); Platelet Count 155 K/mm3 (150-400); RDW Coefficient Variation 15.2 % (11.7-14.2); RDW Standard Deviation 53.9 fL (35.1-46.3); Red Blood Cell Count 3.38 M/mm3 (3.80-5.20); White Blood Cell Count 6.58 K/mm3 (4.00-11.30)
[2019-01-17 06:09] LABS: Bun/Creatinine Ratio 29.9 (12.0-20.0); Calcium, Blood 7.5 mg/dL (8.5-10.1); Creatinine, Blood 2.14 mg/dL (0.40-1.00); Potassium, Blood 3.9 mmol/L (3.5-5.5)
--- NOTE | 2019-01-17 10:14 | NUR ---
SPOKE WITH DR. ROWLEY AND TITO MCCALL ABOUT PYRIDIUM DOSING. ORDER CHANGED TO ONLY ONE TIME DOSING DUE TO COMPROMISED RENAL FUNCTION.
--- NOTE | 2019-01-17 18:30 | NUR ---
SHIFT SUMMARY OX3 FORGETFUL. MULTIPLE COMPLAINTS THROUGHOUT DAY. MORBID OBESITY. DECREASED APPETITE DUE TO C/O GERD. MEDICATED PER MD ORDER. ABLE TO SIT ON EDGE OF BED BUT FAIRLY WEAK WITH STANDING. C/O DYSURIA. LIVES AT HOME WITH DAUGHTER AND GRANDAUGHTER.
--- NOTE | 2019-01-18 04:43 | NUR ---
78 year old Female with urosepsis continues on iv antibiotic to treat. on IV fluid at 75 ml hr. Medicated for pain and nausea with helpful effect. Minimal oral intake. PT obese incontinent of bladder. Had pyridium x 1 for co pain and burning in urinary tract on day shift. Urine orange. Needs extensive assist for toileting adls bed mobility. PT lives with DTR and Granddtr, PT says her DTR is currently ill so she can't dc home. Chronic pain medicated x 1 for headache and rt sciatic pain with norco 5/325 mg two tabs. skin issues with mepilex to sacrum and gleuteal. Heel protectors to decrease bressure to heels.
[2019-01-18 04:48] LABS: BASOPHILS ABSOLUTE AUTO 0.02 K/mm3 (0.00-0.23); BASOPHILS PERCENT AUTO 0 % (0-2); EOSINOPHILS PERCENT AUTO 3 % (0-6); Hematocrit 32.6 % (33.0-51.0); Hemoglobin 9.6 g/dL (11.5-16.0); IMMATURE GRAN ABSOLUTE AUTO 0.05 K/mm3 (0.00-0.10); IMMATURE GRAN PERCENT AUTO 1 % (0-1); LYMPHOCYTES PERCENT AUTO 30 % (21-46); MONOCYTES ABSOLUTE AUTO 0.49 K/mm3 (0.16-1.47); MONOCYTES PERCENT AUTO 8 % (4-13); Mean Corpuscular HGB 28.7 pg (26.0-34.0); Mean Corpuscular HGB Conc 29.4 g/dL (31.5-36.5); Mean Corpuscular Volume 97 fL (80-100); Mean Platelet Volume 10.8 fL (9.1-12.4); NEUTROPHILS ABSOLUTE AUTO 3.81 K/mm3 (1.96-9.15); NEUTROPHILS PERCENT AUTO 58 % (41-73); Platelet Count 156 K/mm3 (150-400); RDW Standard Deviation 53.6 fL (35.1-46.3); Red Blood Cell Count 3.35 M/mm3 (3.80-5.20); White Blood Cell Count 6.57 K/mm3 (4.00-11.30)
[2019-01-18 05:05] LABS: Bun/Creatinine Ratio 34.3 (12.0-20.0); Creatinine, Blood 1.81 mg/dL (0.40-1.00); Potassium, Blood 4.7 mmol/L (3.5-5.5)
[2019-01-18] MEDS ORDERED: ASCO500 PO (10:09)
[2019-01-18] MEDS ORDERED: ACET325 PO (10:09)
[2019-01-18] MEDS ORDERED: BISA10S PR (10:10)
[2019-01-18] MEDS ORDERED: CALC.25 PO (10:10)
[2019-01-18] MEDS ORDERED: BENADRYL25 MG PO (10:11)
[2019-01-18] MEDS ORDERED: TUMS500 MG PO (10:11)
[2019-01-18] MEDS ORDERED: CALCIUM CARBON500 M1 PO (10:11)
[2019-01-18] MEDS ORDERED: FERSU300 PO (10:12)
[2019-01-18] MEDS ORDERED: Florastor250 MG PO (10:13)
[2019-01-18] MEDS ORDERED: ONDA4ODT MM (10:13)
[2019-01-18] MEDS ORDERED: LEVFLO500 PO (10:13)
--- NOTE | 2019-01-18 14:48 | NUR ---
review of patient needs with care mangers and hospitaist and chaplian. Attempted to see pt but her grandaughter were in room talking toher about her daughter who is in icu in critical condition.
--- NOTE | 2019-01-18 17:50 | NUR ---
PT AOX4 AND HAS COOPERATED WITH THIS WRITERS CARE. PT DOES SEEM TO WANT TO REFUSE PHYSICAL THERAPY. PT WAS TO DISCHARGE TODAY AND HAD GRANDAUGHTER COME UP AND TELL HER THAT HER MAIN CAREGIVER WHO IS HER DAUGHTER WAS IN ICU WITH A POOR PROGNOSIS. PT WAS VERY UPSET AFTER THIS NEWS AND EMOTIONAL EXPECTED FROM SOMETHING LIKE THIS. PT DID SPEAK WITH THE CASEMANAGER AND SEEMS OPEN TO GOING TO [facility] IF NEEDED. DR RWOLEY DC'D DISCHARGE ORDERS. CHARGES WERE ALSO MADE AWARE. PT TREATED FOR PAIN AND INDEGESTION PER EMAR. PT STAYS IN BED AND IS INCONTENT AT THIS TIME. WILL CONTINUE TO MONITOR.
[2019-01-19 05:20] LABS: BASOPHILS ABSOLUTE AUTO 0.03 K/mm3 (0.00-0.23); BASOPHILS PERCENT AUTO 0 % (0-2); EOSINOPHILS ABSOLUTE AUTO 0.23 K/mm3 (0.00-0.68); EOSINOPHILS PERCENT AUTO 3 % (0-6); Hematocrit 32.5 % (33.0-51.0); Hemoglobin 9.8 g/dL (11.5-16.0); IMMATURE GRAN ABSOLUTE AUTO 0.09 K/mm3 (0.00-0.10); IMMATURE GRAN PERCENT AUTO 1 % (0-1); LYMPHOCYTES ABSOLUTE AUTO 2.24 K/mm3 (0.84-5.20); LYMPHOCYTES PERCENT AUTO 30 % (21-46); MONOCYTES ABSOLUTE AUTO 0.57 K/mm3 (0.16-1.47); MONOCYTES PERCENT AUTO 8 % (4-13); Mean Corpuscular HGB 28.8 pg (26.0-34.0); Mean Corpuscular HGB Conc 30.2 g/dL (31.5-36.5); Mean Corpuscular Volume 96 fL (80-100); Mean Platelet Volume 10.6 fL (9.1-12.4); NEUTROPHILS ABSOLUTE AUTO 4.34 K/mm3 (1.96-9.15); NEUTROPHILS PERCENT AUTO 58 % (41-73); Platelet Count 148 K/mm3 (150-400); RDW Coefficient Variation 14.7 % (11.7-14.2); RDW Standard Deviation 51.8 fL (35.1-46.3)
[2019-01-19 05:37] LABS: Bun/Creatinine Ratio 37.2 (12.0-20.0); Calcium, Blood 8.5 mg/dL (8.5-10.1); Creatinine, Blood 1.56 mg/dL (0.40-1.00); Potassium, Blood 4.8 mmol/L (3.5-5.5)
--- NOTE | 2019-01-19 07:26 | NUR ---
78 year old Female who was living in her home and had DTR Cari Toledo & Leah living there with her to provide care as she is dependant for toileting and repositioning and unable to ambulate or do ADLS was septic with UTI. SHe was to dc home with assist and her DTR Shara was admitted to ICU and is currently on a vent. PT ASKED FOR UPDATE ON DTRS CONDITION. DTR in ICU 12 Yifan GRIGGS updated PT on DTRS poor condition and PT declines [facility] services . Will make SW referral to coordinate DC andsupport. Carole says Shara was not expected to survive. PT wants updated on DC plan. Support offered
--- NOTE | 2019-01-19 17:16 | NUR ---
PT HAS BEEN AOX4 AND COOPERATIVE OF CARE. PT DOING WELL TODAY AND WAS DOING BETTER EMOTIONALLY. PT EVEN WORKED WITH PHYSICAL THERAPY. PT DID REQUEST AND UPDATE ABOUT HER DAUGHTER TODAY AND THIS ACCOUNT PROCESSOR CALLED FOR HER DOWN STAIRS. NO REAL CHANGES. PT IT INCONTENT AND WILL AT TIMES TRY TO REFUSE DOING THINGS PHYSICALLY. DENIES PAIN AND WAS TREATED FOR HEART BURN PER EMAR TODAY X1. WILL CONTINUE TO MONITOR.
--- NOTE | 2019-01-20 03:36 | NUR ---
01/19/191929 PT ASKING ABOUT HER DAUGHTER'S (GEOVANNY LEHMAN, ICU-12) CURRENT MEDICAL CONDITION PATIENT VOICED NO ONE TELLS HER ANYTHING AND SHE IS QUITE WORRIED ABOUT HER STATUS. PT IS NOTED TO BE VERY HARD OF HEARING DURING ASSESSMENT WITH THIS NURSE RAISING VOICE TO AUDIBLE MONOTONE SO SHE CAN HEAR WORDS. PT VOICED SHE UNABLE HEAR TELEPHONE CONVERSATIONS AT ALL. THIS NURSE CALLED ICU VIA VOCERA AND SPOKE WITH SLIME VILLALOBOS (THIS NURSE ASKED IF IT WAS OK TO TALK VIA VOCERA ABOUT A PATIENT OF HIS, THIS NURSE ALSO ADVISED NURSE SLIME VILLALOBOS THAT I WAS IN [facility] ROOM RIGHT NOW AND HE SAID YES AND VERBALLY CONFIRMED THAT SHE COULD RECEIVE UPDATES, THIS NURSE ADVISED SLIME VILLALOBOS THAT PATIENT IS EXTREMELY HARD OF HEARING AND IS UNABLE TO HEAR WORDS OVER A TELEPHONE WITH ACKNOWLEGEMENT NOTED). SLIME VILLALOBOS RN THAN GAVE BRIEF UPDATE ON CURRENT STATUS TO PATIENT WHILE THIS NURSE HELD VOCERA TO HER LEFT EAR WITH PATIENT VOICING APPRECIATION AND THANK YOU FOR THE UPDATE. THIS NURSE UPDATED ANGELA PONCE RN, CHARGE NURSE REGARDING THE ABOVE EPISODE.
[2019-01-20 04:48] LABS: BASOPHILS ABSOLUTE AUTO 0.02 K/mm3 (0.00-0.23); BASOPHILS PERCENT AUTO 0 % (0-2); EOSINOPHILS ABSOLUTE AUTO 0.24 K/mm3 (0.00-0.68); EOSINOPHILS PERCENT AUTO 3 % (0-6); Hematocrit 34.3 % (33.0-51.0); Hemoglobin 10.4 g/dL (11.5-16.0); IMMATURE GRAN ABSOLUTE AUTO 0.11 K/mm3 (0.00-0.10); IMMATURE GRAN PERCENT AUTO 2 % (0-1); LYMPHOCYTES ABSOLUTE AUTO 1.67 K/mm3 (0.84-5.20); LYMPHOCYTES PERCENT AUTO 24 % (21-46); MONOCYTES ABSOLUTE AUTO 0.61 K/mm3 (0.16-1.47); MONOCYTES PERCENT AUTO 9 % (4-13); Mean Corpuscular HGB 28.1 pg (26.0-34.0); Mean Corpuscular HGB Conc 30.3 g/dL (31.5-36.5); Mean Platelet Volume 11.4 fL (9.1-12.4); NEUTROPHILS ABSOLUTE AUTO 4.42 K/mm3 (1.96-9.15); NEUTROPHILS PERCENT AUTO 63 % (41-73); Platelet Count 154 K/mm3 (150-400); RDW Coefficient Variation 14.6 % (11.7-14.2); RDW Standard Deviation 49.6 fL (35.1-46.3); White Blood Cell Count 7.07 K/mm3 (4.00-11.30)
[2019-01-20 04:53] LABS: Mean Corpuscular Volume 93 fL (80-100)
--- NOTE | 2019-01-20 05:14 | NUR ---
SHIFT SUMMARY: 78 Y/O OBESE FEMALE RESTED COMFORTABLY IN BED ALL SHIFT, FAMILY VISITED LATE SHIFT LAST NIGHT, PT IS AWARE OF DAUGHTER CURRENT MEDICAL STATUS SHE IS INPATIENT IN THE ICU, DENIES PAIN, C/O NAUSEA X 1 WITH REGLAN 5MG IVP GIVEN WITH RELIEF, BED ALARM APPLIED, BED LOW POSITION WITH CALL LIGHT AT SIDE.
[2019-01-20 05:52] LABS: Bun/Creatinine Ratio 41.4 (12.0-20.0); Calcium, Blood 9.4 mg/dL (8.5-10.1); Creatinine, Blood 1.52 mg/dL (0.40-1.00); Potassium, Blood 5.1 mmol/L (3.5-5.5)
--- NOTE | 2019-01-20 17:52 | NUR ---
SHIFT SUMMARY- PT A/O, PLESANT AND COOPERATIVE. PT AWAITING PLACMENT. REFRIGERATOR MOVER IN TO DISCUSS OPTIONS WITH PT. PT TAKING MEDICATIONS WHOLE WITH PUDDING. EATING AND DRINKING WELL. PT WORKED WITH PHYSICAL THERAPY THIS MORNING.
--- NOTE | 2019-01-20 21:46 | NUR ---
PT REFUSED ALL H.S. MEDS, STATED, "I DON'T WANT THEM TONIGHT".
--- NOTE | 2019-01-21 04:04 | NUR ---
SHIFT SUMMARY: 78 Y/O OBESE FEMALE HAD RESTLESS NIGHT AT TIMES WITH PATIENT UTILIZING CALL LIGHT FREQUENTLY FOR NUMEROUS TASKS TO INCLUDE TURNING LIGHTS ON & OFF, CHANGING TV CHANNEL, JUST LONELY AND DESIRING CHAT WITH SOMEBODY, SLIGHT NAUSEA FEELING VOICED WITH REGLAN 5MG IVP X 1 AND ZOFRAN 4MG IVP X 1 GIVEN WITH RELIEF FELT, REQUIRES ASSISTANCE WITH ALL ADLS AND IADLS PATIENT UNABLE TO PERFORM ANY THESE TASKS ALONE TO INCLUDE DRINKING WATER FROM [place], ALERT AND ORIENTED X 2, ABLE TO FOLLOW SIMPLE VERBAL COMMANDS, BED ALARM APPLIED, BED LOW POSITION WITH CALL LIGHT AT SIDE.
--- NOTE | 2019-01-21 16:50 | NUR ---
SHIFT SUMMARY- PT A/O, PLESANT AND COOPERATIVE. PT EATING AND DRINKING WELL. PT HAS DIFFICULTY TAKING MEDICATIONS AND REFUSED THREE OF THE LARGER SIZED PILLS FROM THIS MORNINGS ORDERED MEDICATIONS. PT WORKED WITH PHYSICAL THERAPY THIS AFTERNOON AND TOLERATED WELL. CHANGED BANDAGE ON ULCER ON PT COCCYX.
[2019-01-22 04:55] LABS: BASOPHILS ABSOLUTE AUTO 0.02 K/mm3 (0.00-0.23); BASOPHILS PERCENT AUTO 0 % (0-2); EOSINOPHILS PERCENT AUTO 4 % (0-6); Hematocrit 32.7 % (33.0-51.0); Hemoglobin 10.1 g/dL (11.5-16.0); IMMATURE GRAN ABSOLUTE AUTO 0.28 K/mm3 (0.00-0.10); IMMATURE GRAN PERCENT AUTO 4 % (0-1); LYMPHOCYTES ABSOLUTE AUTO 2.06 K/mm3 (0.84-5.20); LYMPHOCYTES PERCENT AUTO 26 % (21-46); MONOCYTES ABSOLUTE AUTO 0.93 K/mm3 (0.16-1.47); MONOCYTES PERCENT AUTO 12 % (4-13); Mean Corpuscular HGB 28.5 pg (26.0-34.0); Mean Corpuscular HGB Conc 30.9 g/dL (31.5-36.5); Mean Corpuscular Volume 92 fL (80-100); Mean Platelet Volume 11.7 fL (9.1-12.4); NEUTROPHILS ABSOLUTE AUTO 4.39 K/mm3 (1.96-9.15); NEUTROPHILS PERCENT AUTO 55 % (41-73); Platelet Count 165 K/mm3 (150-400); RDW Standard Deviation 50.5 fL (35.1-46.3); Red Blood Cell Count 3.55 M/mm3 (3.80-5.20); White Blood Cell Count 7.98 K/mm3 (4.00-11.30)
[2019-01-22 05:19] LABS: Bun/Creatinine Ratio 46.3 (12.0-20.0); Calcium, Blood 9.3 mg/dL (8.5-10.1); Creatinine, Blood 1.34 mg/dL (0.40-1.00); Potassium, Blood 5.4 mmol/L (3.5-5.5)
--- NOTE | 2019-01-22 06:03 | NUR ---
SHIFT SUMMARY NO ACUTE CHANGES THIS SHIFT. AOX3-FORGETFUL @TIMES. DENIES N/V, PAIN, DYSPNEA, CHILLS. VSS. HS CBG @176-NO COVERAGE NEEDED PER SLIDING SCALE. INCONTINENT OF URINE, NEEDS ASSISTANCE W/CHANGING, ATTENDS IN PLACE. ASKS ABOUT DAUGHTER, ENCOURAGED PT TO CALL ICU TO ASK HER QUESTIONS & OFFERED TO DIAL NUMBER. REFUSED HS FLORASTOR, STATING IT WAS TOO BIG TO SWALLOW- WAS ABLE TO TAKE THE REST OF MEDICATION IN PUDDING. CALL LIGHT IN REACH.
--- NOTE | 2019-01-22 19:26 | NUR ---
SHIFT SUMMARY- PT ALERT AND ORIENTED TO SELF AND FAMILY, SHE PLACED A CALL TO HER DAUGHTER TODAY, DAUGHTER IS IN ROOM 351 AND IS CONFUSED. PT SEEMED TO HANDLE HER DAUGHTERS CONFUSION WELL LIKE IT WAS A NORMAL THING. PT BG HAVE BEEN BELOW 200 REQUIRING NO COVERAGE. PT HAD A HEADACHE EARLIER AND WAS MEDICATED WITH TYLENOL. PT STATED ON FOLLOW UP PAIN WAS WELL MANAGED.
[2019-01-23 05:43] LABS: BASOPHILS ABSOLUTE AUTO 0.03 K/mm3 (0.00-0.23); BASOPHILS PERCENT AUTO 0 % (0-2); EOSINOPHILS ABSOLUTE AUTO 0.29 K/mm3 (0.00-0.68); EOSINOPHILS PERCENT AUTO 4 % (0-6); Hematocrit 32.5 % (33.0-51.0); IMMATURE GRAN ABSOLUTE AUTO 0.33 K/mm3 (0.00-0.10); IMMATURE GRAN PERCENT AUTO 4 % (0-1); LYMPHOCYTES ABSOLUTE AUTO 2.34 K/mm3 (0.84-5.20); LYMPHOCYTES PERCENT AUTO 29 % (21-46); MONOCYTES ABSOLUTE AUTO 0.94 K/mm3 (0.16-1.47); MONOCYTES PERCENT AUTO 12 % (4-13); Mean Corpuscular HGB 28.7 pg (26.0-34.0); Mean Corpuscular HGB Conc 30.8 g/dL (31.5-36.5); Mean Corpuscular Volume 93 fL (80-100); Mean Platelet Volume 11.4 fL (9.1-12.4); NEUTROPHILS ABSOLUTE AUTO 4.19 K/mm3 (1.96-9.15); NEUTROPHILS PERCENT AUTO 52 % (41-73); Platelet Count 180 K/mm3 (150-400); RDW Coefficient Variation 15.3 % (11.7-14.2); RDW Standard Deviation 52.4 fL (35.1-46.3); Red Blood Cell Count 3.48 M/mm3 (3.80-5.20); White Blood Cell Count 8.12 K/mm3 (4.00-11.30)
[2019-01-23 06:12] LABS: Bun/Creatinine Ratio 44.4 (12.0-20.0); Calcium, Blood 9.4 mg/dL (8.5-10.1); Creatinine, Blood 1.53 mg/dL (0.40-1.00); Potassium, Blood 5.7 mmol/L (3.5-5.5)
--- NOTE | 2019-01-23 06:29 | NUR ---
SHIFT SUMMARY AOX4, FORGETFUL @TIMES. REPORTED 8/10 PAIN IN BACK/BUTTOCKS LAST NIGHT, MEDICATED 1X W/NORCO PER ORDERS & REPOSITIONED MULTIPLE TIMES FOR COMFORT. REPORTED FEELING NAUSEOUS & INCREASED ITCHING 3 HOURS AFTER TAKING PAIN MEDICATION, GAVE ZOFRAN & BENYDRAL & PT REPORTED RELIEF. VSS. INCONTINENT OF URINE, ATTENDS CHANGED PRN. MEPILEX CHANGED ON PRESSURE SORE, NO DRAINAGE NOTED. CALL LIGHT IN REACH & PT USES APPROPRIATELY.
--- NOTE | 2019-01-23 17:16 | NUR ---
SUMMARY PT RESTING QUIETLY IN BED WATCHING TV, PT HAS BEEN UP IN THE CHAIR TODAY, PT WORKED WITH PT/OT TODAY, MED PER EMAR FOR PAIN, VSS, NO ACUTE CHANGES, WILL CONT TO MONITOR
[2019-01-24 05:34] LABS: BASOPHILS ABSOLUTE AUTO 0.04 K/mm3 (0.00-0.23); BASOPHILS PERCENT AUTO 0 % (0-2); EOSINOPHILS ABSOLUTE AUTO 0.38 K/mm3 (0.00-0.68); EOSINOPHILS PERCENT AUTO 4 % (0-6); Hematocrit 34.5 % (33.0-51.0); Hemoglobin 10.2 g/dL (11.5-16.0); IMMATURE GRAN ABSOLUTE AUTO 0.41 K/mm3 (0.00-0.10); IMMATURE GRAN PERCENT AUTO 4 % (0-1); LYMPHOCYTES ABSOLUTE AUTO 2.56 K/mm3 (0.84-5.20); LYMPHOCYTES PERCENT AUTO 27 % (21-46); MONOCYTES ABSOLUTE AUTO 1.03 K/mm3 (0.16-1.47); MONOCYTES PERCENT AUTO 11 % (4-13); Mean Corpuscular HGB 28.1 pg (26.0-34.0); Mean Corpuscular HGB Conc 29.6 g/dL (31.5-36.5); Mean Corpuscular Volume 95 fL (80-100); Mean Platelet Volume 11.3 fL (9.1-12.4); NEUTROPHILS ABSOLUTE AUTO 4.97 K/mm3 (1.96-9.15); NEUTROPHILS PERCENT AUTO 53 % (41-73); Platelet Count 193 K/mm3 (150-400); RDW Coefficient Variation 15.4 % (11.7-14.2); RDW Standard Deviation 53.6 fL (35.1-46.3); Red Blood Cell Count 3.63 M/mm3 (3.80-5.20); White Blood Cell Count 9.39 K/mm3 (4.00-11.30)
[2019-01-24 06:04] LABS: BASOPHILS PERCENT MAN 0 % (0-2); EOSINOPHILS ABSOLUTE MAN 0.37 K/mm3 (0.00-0.68); EOSINOPHILS PERCENT MAN 4 % (0-6); LYMPHOCYTES ABSOLUTE MAN 2.53 K/mm3 (0.84-5.20); LYMPHOCYTES PERCENT MAN 27 % (21-46); METAMYELOCYTE ABSOLUTE MAN 0.18 K/mm3 (0.00-0.00); METAMYELOCYTE PERCENT MAN 2 % (0-0); MONOCYTES ABSOLUTE MAN 0.46 K/mm3 (0.16-1.47); MONOCYTES PERCENT MAN 5 % (4-13); MYELOCYTE ABSOLUTE MAN 0.18 K/mm3 (0.00-0.00); MYELOCYTE PERCENT MAN 2 % (0-0); NEUTROPHILS ABSOLUTE MAN 5.63 K/mm3 (1.96-9.15); SEG NEUTROPHILS PERCENT MAN 60 % (41-73); TOTAL CELLS COUNTED 100
--- NOTE | 2019-01-24 06:14 | NUR ---
SHIFT SUMMARY HAD DIFFICULTY FALLING ASLEEP LAST NIGHT & FINALLY FELL ASLEEP AFTER 0200 THIS MORNING. AOX4. VSS. REPORTS PAIN IN BACK, BOTTOM WHERE PRESSURE SORES AT & HEADACHE-MEDICATED W/TYLENOL & NORCO PER ORDERS. REPORTS CONSTANT ITCHING & MEDICATED 1X W/25MG BENYDRYL PER ORDERS. NO DRAINAGE NOTED W/PRESSURE SORE, MEPILEX CHANGED & C/D/I. INCONTINENT OF URINE & CHANGED PRN. REPOSITIONED PRN FOR COMFORT. CALL LIGHT IN REACH.
[2019-01-24 06:24] LABS: Bun/Creatinine Ratio 39.7 (12.0-20.0); Calcium, Blood 9.2 mg/dL (8.5-10.1); Creatinine, Blood 1.79 mg/dL (0.40-1.00); Potassium, Blood 6.2 mmol/L (3.5-5.5)
--- NOTE | 2019-01-24 06:51 | NUR ---
CRITICAL K NOTIFIED @0624 OF CRITICAL K @6.2 BY LAB. PT IS ASYMPTOMATIC, SLEEPING YET AROUSABLE & DENIES ANY DISCOMFORT @THIS TIME. NOTIFIED DR DEAN @0639, HE STATED HE WOULD REVIEW LABS & GAVE NO NEW ORDERS.
--- NOTE | 2019-01-24 09:53 | NUR ---
MAGDA RN REPORT ELEVATED K+ 6.2, MAGDA LUNSFORD ORDERS FOR 5UNIT REG INSULIN, 25GM DEXTROSE & IVPB CA+GLUCONATE--GIVEN.
[2019-01-24 10:41] LABS: Bun/Creatinine Ratio 42.2 (12.0-20.0); Calcium, Blood 9.6 mg/dL (8.5-10.1); Creatinine, Blood 1.73 mg/dL (0.40-1.00)
[2019-01-24 16:48] LABS: Magnesium, Blood 2.2 mg/dL (1.6-2.4)
[2019-01-24 16:55] LABS: Albumin, Blood 2.9 g/dL (3.4-5.0); Bilirubin, Total 0.3 mg/dL (0.1-1.0); Bun/Creatinine Ratio 41.5 (12.0-20.0); Calcium, Blood 9.8 mg/dL (8.5-10.1); Creatinine, Blood 1.71 mg/dL (0.40-1.00); Globulin, Blood 2.9 g/dL (2.2-4.0); Total Protein, Blood 5.8 g/dL (6.4-8.2)
[2019-01-24 16:56] LABS: Potassium, Blood 6.7 mmol/L (3.5-5.5)
[2019-01-24 17:42] LABS: Uric Acid, Blood 7.5 mg/dL (2.6-6.0)
[2019-01-24 17:54] LABS: PCO2 Arterial 33.7 mmHg (35-45); PO2 Arterial 68.8 mmHg (80-100); pH Blood Arterial 7.34 (7.35-7.45)
--- NOTE | 2019-01-24 19:12 | NUR ---
SUMMARY THIS AM NOC RN REPORT CH K+ 6.2, ORDERS FOR 5UNIT REG INSULIN IV, D50 1 AMP IV, CA+GLUCONATE IVPB. MEDS ADMINISTERED. RECHECK K+ @ 1000 CONTINUES CH 6.0, DR ROWLEY NOTIFIED ORDER REPEAT OF MEDS FROM THIS AM PLUS ALBUTEROL NEB. MEDS GIVEN. K+ RECHECKED @ 1500, CONTINUES CH 6.7, DR ROWLEY ORDER 1HR ALBUTEROL NEB, EKG (NSR 70'S), 10 UNIT REG INSULIN IV, 1 AMP D50, IVPB CA+GLUCONATE & CONSULT DR GRANDA. MEDS GIVEN. DR GRANDA ORDER VALTESSA PO, STAT LABS & ABG'S. ABG SHOW K+ LEVEL 5.6, IMPROVED. DR GRANDA ORDER NA+BICARB IVP X1 THEN CONTINUOUS @ 50 ML/HR. POWERGLIDE LUE DRSG CHANGED TODAY. PT DECLINED BEDBATH. SHE PARTICIPATED SOME w PT/OT, SAT UP ON BEDSIDE. SHE HAS DECLINED OOB T/O DAY. APPEARS WEAK/FATIGUED. GOOD APPETITE. SHE STATE PAIN LOW BACK/BOTTOM, PRN NORCO GIVEN FOR RELIEF.
--- NOTE | 2019-01-25 04:47 | NUR ---
GROUNDSKEEPING MAINTENANCE SUMMARY PT AAOX4 AND PLEASANT. PT CONTINUES HAVING LOW BP'S WITH SBP IN THE 80'S CONSISTENTLY. DR GRANDA IN TO SEE PT EARLY IN THE SHIFT, ORDERED A 500 ML BOLUS OF NS WELL ADDED CONTINUOUS 50 ML/HR NS ON TOP OF SODIUM BICARB PT ALREADY RECIEVING. LASIX ALSO DC'D BY DR GRANDA. SBP 101 WITH MORNING VITALS. PT INCONTINENT OF URINE, DOES NOT ASSIST MUCH WITH TURNS AND CHANGES. PT SEEMS TO HAVE NO MOTIVATION. WILL CONTINUE TO MONITOR.
[2019-01-25 05:04] LABS: BASOPHILS ABSOLUTE AUTO 0.02 K/mm3 (0.00-0.23); BASOPHILS PERCENT AUTO 0 % (0-2); EOSINOPHILS ABSOLUTE AUTO 0.18 K/mm3 (0.00-0.68); EOSINOPHILS PERCENT AUTO 3 % (0-6); Hematocrit 33.2 % (33.0-51.0); Hemoglobin 9.7 g/dL (11.5-16.0); IMMATURE GRAN ABSOLUTE AUTO 0.23 K/mm3 (0.00-0.10); IMMATURE GRAN PERCENT AUTO 3 % (0-1); LYMPHOCYTES PERCENT AUTO 21 % (21-46); MONOCYTES ABSOLUTE AUTO 0.67 K/mm3 (0.16-1.47); MONOCYTES PERCENT AUTO 10 % (4-13); Mean Corpuscular HGB 28.5 pg (26.0-34.0); Mean Corpuscular HGB Conc 29.2 g/dL (31.5-36.5); Mean Corpuscular Volume 98 fL (80-100); Mean Platelet Volume 11.5 fL (9.1-12.4); NEUTROPHILS ABSOLUTE AUTO 4.23 K/mm3 (1.96-9.15); NEUTROPHILS PERCENT AUTO 63 % (41-73); Platelet Count 141 K/mm3 (150-400); RDW Coefficient Variation 15.6 % (11.7-14.2); RDW Standard Deviation 55.2 fL (35.1-46.3); White Blood Cell Count 6.73 K/mm3 (4.00-11.30)
[2019-01-25 05:35] LABS: Albumin, Blood 2.6 g/dL (3.4-5.0); Albumin/Globulin Ratio 0.9 (0.8-1.8); Bilirubin, Total 0.3 mg/dL (0.1-1.0); Calcium, Blood 10.2 mg/dL (8.5-10.1); Creatinine, Blood 1.71 mg/dL (0.40-1.00); Globulin, Blood 2.9 g/dL (2.2-4.0); Phosphorus, Blood 3.4 mg/dL (2.5-4.9); Total Protein, Blood 5.5 g/dL (6.4-8.2)
--- NOTE | 2019-01-25 07:21 | NUR ---
HYPERKALEMIA NOTIFIED BY LAB OF CRITIAL K+ OF 6.0. CALLED DR DEAN REGARDING POTASSIUM, DR DEAN STATED HE WOULD LOOK AT LABS AND PUT IN ORDERS. IMMEDIATELY AFTER SPEAKING WITH DR DEAN RECIEVED CALL FROM DR GRANDA REGARDING PT'S POTASSIUM. RECIEVED ORDERS FOR AN AMP OF D50, AMP OF BICARB, 10 UNITS OF IV REGULAR INSULIN, AND VALTESSA. VALTESSA TO BE GIVEN AFTER BREAKFAST. DR GRANDA ALSO GAVE ORDERS TO HAVE STAT POTASSIUM AND CO2 LABS TAKEN AT 1100 AND TO NOTIFY HIM OF RESULTS. PASSED THIS INFORMATION ON TO DAY RN ASSUMING CARE.
[2019-01-25 11:31] LABS: Potassium, Blood 6.2 mmol/L (3.5-5.5)
--- NOTE | 2019-01-25 11:36 | NUR ---
K+ 6.[address] GRANDA. HE STATE NO TX @ THIS TIME, REORDER K+ LEVEL @ 1600 & CALL W RESULTS.
[2019-01-25 17:45] LABS: Base Excess Venous 4.1 mmol/L; Bicarbonate Venous 27.8 mmol/L (24.0-30.0); PCO2 Venous 35.6 mmHg (38-42); PO2 Venous 46.7 mmHg (38-42); pH Blood Venous 7.49 (7.34-7.37)
[2019-01-25 17:53] LABS: pH Blood Arterial 7.44 (7.35-7.45)
[2019-01-25 17:54] LABS: PCO2 Arterial 40.9 mmHg (35-45); PO2 Arterial 63.8 mmHg (80-100)
--- NOTE | 2019-01-25 18:16 | NUR ---
SUMMARY HYPERKALEMIA HAS BEEN AN ISSUE AGAIN TODAY. CH 6.O THIS AM. DR GRANDA MANAGING, PLACE ORDERS FOR 1 AMP BICARB, 1 AMP D50, IV REG INSULIN. RECHECKED K+ LEVEL @ 1100, CH 6.[address] GRANDA GIVE NO NEW ORDERS @ THAT TIME, STATE WILL MX & RECHECK @ 1600. LAB @ THAT TIME CH 6.5. DR GRANDA GIVE ORDERS FOR ANOTHER AMP BICARB, AMP D50 & 12 UNIT IV REG INSULIN IN ADDITION TO MED S/S SUBQ. ORDER ARTERIAL & VENOUS BLOOD GAS, RESULTS 6.0 & 5.8 REPORTED, @ THAT TIME DR GRANDA CHANGE CONTINUOUS IVF TO NS @ 50 ML/HR. TELE MX REPORT NSR 60-70'S T/O DAY. PT HAS BEEN A/O X4, GENERALLY PLEASANT, STATE CONTINUING FATIGUE. SHE HAS HAD MULT HEAVY WET ATTENDS HOWEVER NO STOOL OUTPUT X3 DAYS, DR MENDES ORDER COLACE BID PRN. VSS. SOCSERV IN TO SEE PT THIS AFTERNOON FOR SAFE D/C ARRANGEMENTS WHEN APPROP.
[2019-01-26 04:59] LABS: Hematocrit 34.2 % (33.0-51.0)
[2019-01-26 05:20] LABS: Albumin, Blood 2.7 g/dL (3.4-5.0); Albumin/Globulin Ratio 0.9 (0.8-1.8); Bilirubin, Total 0.4 mg/dL (0.1-1.0); Calcium, Blood 9.6 mg/dL (8.5-10.1); Creatinine, Blood 1.36 mg/dL (0.40-1.00); Magnesium, Blood 1.6 mg/dL (1.6-2.4); Phosphorus, Blood 2.7 mg/dL (2.5-4.9); Potassium, Blood 5.7 mmol/L (3.5-5.5); Total Protein, Blood 5.7 g/dL (6.4-8.2)
--- NOTE | 2019-01-26 05:40 | NUR ---
PAVING AND SURFACING LABOURER SUMMARY NO ACUTE CHANGES THIS SHIFT. PT AAOX4 AND PLEASANT. POTASSIUM ACTUALLY DECREASED THIS AM FROM 5.8 DOWN TO 5.7. PT CONTNIUES TO BE INCONTINENT AND REQUIRES 2 ASSIST FOR TURNS AND CHANGES. PT DOES NOT OFFER MUCH ASSISTANCE WITH REPOSITIONING. SBP STABLE IN 90'S. WILL CONTINUE TO MONITOR.
--- NOTE | 2019-01-26 07:44 | NUR ---
ASSUMED CARE OF PT- BEDSIDE REPORT COMPLETED WITH [facility] ANSON LOWRY. PER REPORT PT PRESSURES REMAIN LOW IN THE 90'S. PT POTASSIUM HAS BEEN CRITICALLY HIGH. PER REPORT PT POTASSIUM THIS MORNING IS NO LONGER CRITICALLY HIGH. PT IN BED SLEEPING AT THE TIME OF REPORT, NO S&S OF DITRESS NOTED AT THIS TIME. NS RUNNING INTO MINA PG AT 50ML/HR. BG 108 THIS MORNING SO NO COVERAGE NEEDED.
--- NOTE | 2019-01-26 18:11 | NUR ---
SHIFT SUMMARY- PT ALERT AND ORIENTED 2P MAX ASSIST FOR PIVOT TRANSFER TO THE CHAIR. PT SAT UP IN THE RECLINER FOR 1.5 HOURS AND BEGAN CRYING AND CALLING OUT FOR HELP BECAUSE SHE WANTED TO RETURN TO THE BED. ONCE RETURNED TO THE BED PT WENT TO SLEEP MINUTES LATER. PT HAS DENIED THE NEED FOR PAIN MEDICATION T/O THE DAY, PT REMAINS HYPOTENSIVE AT BASELINE. NS RUNNING INTO THE PG IN THE PT MINA AT 50ML/HR. PG DOES NOT DRAW.
--- NOTE | 2019-01-27 04:25 | NUR ---
78 year old female admitted 01/15/19 with sepsis related to UTI continues to need DC planning for safe DC. PT's DTR who lived with her and was a caregiver is no longer available and PT dependent for all adls, toileting and is immobile baseline. PT continues on tele monitor and she is on room air. Denies acute pain or distress. Continues on NS IV fluids at 5o ml hr via lt UE powerglide.
[2019-01-27 05:01] LABS: Hematocrit 32.8 % (33.0-51.0); Hemoglobin 9.6 g/dL (11.5-16.0)
[2019-01-27 05:39] LABS: Albumin, Blood 2.5 g/dL (3.4-5.0); Albumin/Globulin Ratio 0.9 (0.8-1.8); Bun/Creatinine Ratio 32.5 (12.0-20.0); Calcium, Blood 9.2 mg/dL (8.5-10.1); Creatinine, Blood 1.2 mg/dL (0.40-1.00); Globulin, Blood 2.9 g/dL (2.2-4.0); Magnesium, Blood 1.6 mg/dL (1.6-2.4); Phosphorus, Blood 3.2 mg/dL (2.5-4.9); Potassium, Blood 5.5 mmol/L (3.5-5.5); Total Protein, Blood 5.4 g/dL (6.4-8.2)
[2019-01-27 05:47] LABS: Bilirubin, Total 0.7 mg/dL (0.1-1.0)
[2019-01-28 05:02] LABS: Hematocrit 32.6 % (33.0-51.0); Hemoglobin 9.7 g/dL (11.5-16.0)
[2019-01-28 05:20] LABS: Albumin, Blood 2.6 g/dL (3.4-5.0); Anion Gap 7 mmol/L (6-16); Blood Urea Nitrogen 34 mg/dL (8-24); Bun/Creatinine Ratio 27.2 (12.0-20.0); CO2, Blood 21 mmol/L (21-32); Calcium, Blood 9.2 mg/dL (8.5-10.1); Chloride, Blood 115 mmol/L (98-108); Creatinine, Blood 1.25 mg/dL (0.40-1.00); Glomerular Filtration Rate 44 (60-); Glucose, Blood 109 mg/dL (70-99); Magnesium, Blood 1.6 mg/dL (1.6-2.4); Phosphorus, Blood 3.3 mg/dL (2.5-4.9); Potassium, Blood 5.4 mmol/L (3.5-5.5); Sodium, Blood 143 mmol/L (136-145)
--- NOTE | 2019-01-28 06:04 | NUR ---
SHIFT SUMMARY NO ACUTE EVENTS. PT IS A&O WITH OCCASIONAL FORGETUFLNESS. K+ 5.4 THIS AM. TELE IN PLACE; NO ACUTE EVENTS; NSR @ 70. PT IS INCONTINENT OF BOWEL AND BLADDER SEVERAL TIMES TONIGHT. NS RUNNING @ 50 ML/HR. BP STABLE. WILL CONT TO MONITOR AND PROVIDE CARE UNTIL PRESUMED BY ONCOMING RN.
--- NOTE | 2019-01-28 16:53 | NUR ---
PT AO AND COPPERATIVE OF CARE. SEEMS TO ANSWERE QUESTIONS APPROPRIATELY. VERY LOW MOTIVATION AND REFUSED TO GET UP IN CHAIR TODAY. PT RESTING IN BED AT THIS TIME. PT HAS BEEN GOOD ABOUT TRYING TO HELP MORE WITH ROLLIING. DENIES PAIN WILL CONTINUE TO MONITOR.
--- NOTE | 2019-01-29 04:19 | NUR ---
SHIFT SUMMARY AOX4. LS A LITTLE DIM, DENIES SOB. NO C/O NAUSEA OR PAIN. MEPILEX ON BOTTOM IS C/D/I. GROIN AND ABDOMINAL FOLDS ARE RED AND SORE. ABD IN FOLDS WERE SKIN IS STARTING TO OPEN. INCONTINENT, ATTENDS. 2 PERSON MAX ASSIST. POWERGLIDE IN MINA HAS NS @ 50ML/HR. NIGHT VELTASSA DOSE WAS UNAVAILABLE SO KAYEXALATE WAS ORDERED TO REPLACE THAT DOSE. AC AND HS - 164. MEDS WHOLE IN PUDDING. VSS ON RA. WAITING FOR PLACEMENT. PT HOPES TO DC TO [facility] TODAY.
[2019-01-29 04:52] LABS: Hematocrit 33.7 % (33.0-51.0); Hemoglobin 10.1 g/dL (11.5-16.0)
[2019-01-29 05:14] LABS: Albumin, Blood 2.6 g/dL (3.4-5.0); Anion Gap 8 mmol/L (6-16); Blood Urea Nitrogen 30 mg/dL (8-24); Bun/Creatinine Ratio 24.4 (12.0-20.0); CO2, Blood 19 mmol/L (21-32); Chloride, Blood 117 mmol/L (98-108); Creatinine, Blood 1.23 mg/dL (0.40-1.00); Glomerular Filtration Rate 45 (60-); Glucose, Blood 108 mg/dL (70-99); Magnesium, Blood 1.6 mg/dL (1.6-2.4); Phosphorus, Blood 3.9 mg/dL (2.5-4.9); Potassium, Blood 5.3 mmol/L (3.5-5.5); Sodium, Blood 144 mmol/L (136-145)
--- NOTE | 2019-01-29 17:42 | NUR ---
PT AO AND COOPERATIVE OF CARE. PT CONTINUES TO HAVE NO REAL DRIVE TO MAKE EFFORTS FOR GETTING UP OR TRYING HARD WITH PHYSICAL THERAPY. IF SHE CAN REFUSE SHE DOES. PT IS CONSTANTLY ENCOURAGED TO DO MORE AND GET OUT OF BED. PT DOING BETTER HELPING TO ROLL DURING CHANGES. WILL CONTINUE TO MONITOR.
--- NOTE | 2019-01-30 03:23 | NUR ---
SHIFT SUMMARY AOX4. LS DIM, DENIES SOB. NO C/O NAUSEA OR PAIN. NO PRNS GIVEN. PT TAKES PILLS WHOLE IN CHOCOLATE PUDDING. MEPILEX ON BOTTOM IS C/D/I. ABD IN ABDOMINAL FOLDS. FOLDS AND GROIN AREA IS VERY RED. SCATTERED BRUISING ON ARMS. INCONTINENT OFTEN. 2 MAX ASSIST. VSS ON RA. POWERGLIDE IN MINA - SL. BLOOD GLUCOSE IS AC AND HS - 197 (3UNITS). PT CONCERNED AND TEARFUL ABOUT DAUGHTER WHO IS ALSO IN THE HOSPITAL. DC IS WAITING FOR PLACEMENT TO BE FOUND.
[2019-01-30 04:49] LABS: Hematocrit 34.4 % (33.0-51.0); Hemoglobin 10.3 g/dL (11.5-16.0)
[2019-01-30 05:06] LABS: Albumin, Blood 2.6 g/dL (3.4-5.0); Anion Gap 8 mmol/L (6-16); Blood Urea Nitrogen 27 mg/dL (8-24); Bun/Creatinine Ratio 24.1 (12.0-20.0); CO2, Blood 20 mmol/L (21-32); Calcium, Blood 8.7 mg/dL (8.5-10.1); Chloride, Blood 116 mmol/L (98-108); Creatinine, Blood 1.12 mg/dL (0.40-1.00); Glomerular Filtration Rate 50 (60-); Glucose, Blood 117 mg/dL (70-99); Magnesium, Blood 1.7 mg/dL (1.6-2.4); Phosphorus, Blood 3.5 mg/dL (2.5-4.9); Potassium, Blood 5.2 mmol/L (3.5-5.5); Sodium, Blood 144 mmol/L (136-145)
--- NOTE | 2019-01-30 17:11 | NUR ---
SUMMARY PT RESTING QUIETLY IN BED WATCHING TV, PT HAS WORKED WITH PT/OT, INCONTINENT OF BOWEL AND BLADDER, MED PER EMAR FOR HEADACHE, VSS, NO ACUTE CHANGES, WILL CONT TO MONITOR
--- NOTE | 2019-01-30 22:16 | NUR ---
BEGINNING SHIFT SUMMARY ASSUMED CARE OF PT AT 1900. PT IS ALERT AND ORIENTED BUT FORGETFUL, [place] RESERVATION, AND IS UNMOTIVED IN HER OWN CARE. LUNG SOUNDS CLEAR AND DIMINISHED, DENIES SOB AT THIS TIME. HEART SOUNDS REGULAR, PERIPHERAL PULSES STRONG, POWERGLIDE IN L ARM DENNIS LOCKED. BOWEL TONES HYPERACTIVE, PT IS INCONTINENT OF BOWEL AND BLADDER, WILL CALL AT TIMES WHEN SHE THINKS SHE NEEDS TO BE CHANGED. PANNUS FOLD, GROIN AREA, AND BOTTOCK ARE PINK, CLEANED AND POWEDERED WITH EACH ATTENDS CHANGE. PT REPEATIVLY ASKS ABOUT HER DAUGHTER AND HOW SHE IS DOING. PT IS CURRENTLY WATCHING TV IN HER ROOM. CALL LIGHT IN REACH, BED IN LOWEST POSITION, WILL CONTINUE TO MONITOR.
[2019-01-31 05:09] LABS: Hematocrit 35.5 % (33.0-51.0); Hemoglobin 10.4 g/dL (11.5-16.0)
--- NOTE | 2019-01-31 05:24 | NUR ---
END SHIFT SUMMARY NO ACUTE CHANGES NOTED THROUGHOUT THE NIGHT. PT SLEPT MOST OF THE NIGHT EXCEPT FOR WHEN HER ATTENDS WAS CHANGED. PT IS CURRENTLY SLEEPING. CALL LIGHT IN REACH, BED IN LOWEST POSTION, WILL CONTINUE TO MONITOR UNTIL DAYSHIFT NURSE ARRIVES.
[2019-01-31 05:32] LABS: Albumin, Blood 2.6 g/dL (3.4-5.0); Anion Gap 9 mmol/L (6-16); Blood Urea Nitrogen 26 mg/dL (8-24); Bun/Creatinine Ratio 20.3 (12.0-20.0); CO2, Blood 19 mmol/L (21-32); Calcium, Blood 8.6 mg/dL (8.5-10.1); Chloride, Blood 116 mmol/L (98-108); Creatinine, Blood 1.28 mg/dL (0.40-1.00); Glomerular Filtration Rate 43 (60-); Glucose, Blood 111 mg/dL (70-99); Magnesium, Blood 1.8 mg/dL (1.6-2.4); Phosphorus, Blood 3.8 mg/dL (2.5-4.9); Potassium, Blood 4.8 mmol/L (3.5-5.5); Sodium, Blood 144 mmol/L (136-145)
--- NOTE | 2019-01-31 18:04 | NUR ---
SHIFT SUMMARY NO ACUTE CHANGES. PATIENT MEDICATED X 1 FOR PAIN THIS SHIFT. DENIES NAUSEA AND SHORTNESS OF BREATH. PATIENT WORKED WITH PT AND OT. PATIENT UP IN CHAIR THIS AFTERNOON. PATIENT DISCHARGE TO SNF PENDING INSURANCE AUTHORIZATION. CALL LIGHT IN REACH.
--- NOTE | 2019-01-31 22:03 | NUR ---
ASSISTED RN BY PASSING MEDICATIONS FOR THIS PATIENT. PATIENT REPORTED A HEADACHE AND WAS GIVEN TYLENOL, WILL LET PRIMARY RN KNOW SO SHE CAN RE EVAL FOR EFFECTIVENESS. PT REQUESTED CHEESE CRACKERS AND TO TAKE HER PILLS WHOLE WITH ROCÍO PUDDING. PT WAS SLIGHLY OFFENDED THAT HER MEDICATIONS WERE NOT SPOON FED TO HER WITH THE PUDDING. SHE WAS OBSERVED OPENING CHEESE AND CRACKER PACKETS ON HER OWN AND FEEDING HERSELF ON HER OWN. I EXPLAINED THAT WE TRY TO LET THE PATIENTS TAKE THEIR MEDICATIONS THEMSELVES UNLESS THEY ARE NOT ABLE TO. I ASKED IF SHE FELT LIKE SHE FELT LIKE SHE WAS NOT ABLE TO DO THIS HERSELF. PT STATES "I CAN IT'S JUST THAT THE NURSE USUALLY DOES IT FOR ME. ARE YOU NOT USED TO DOING THIS?" I EXPLAINED AGAIN THAT WE TRY TO LET THE PATIENTS GIVE THEMSELVES THEIR MEDICATIONS IF THEY ARE ABLE TO AND ASKED AGAIN IF SHE FELT LIKE SHE WAS NOT ABLE TO AND NEEDED ME TO DO IT FOR HER. SHE SAID SHE COULD DO IT HERSELF. I DID ADMINISTER HER INSULIN AND [place] SHOTS. NO OTHER APPARENT SIGNS OF DISTRESS AT THIS TIME. PT DENIES NEED FOR ANYTHING ELSE AT THIS TIME. CALL LIGHT IS IN REACH.
--- NOTE | 2019-02-01 04:43 | NUR ---
SHIFT NEVILLE: PATIENT RESTED INTERMITTENTLY, A BIT ATTENTION SEEKING IN BEHAVIOR, HAD TO BE PROMPTED TO HELP WITH MOVING, AND TURNING HERSELF IN THE BED. PT SEEMS AMBIVALENT REGARDING DOING FOR HERSELF OR PUTTING FORTH EFFORT TOWARDS IMPROVING HER HEALTH STATUS.
[2019-02-01 04:58] LABS: Hematocrit 34.5 % (33.0-51.0)
[2019-02-01 05:21] LABS: Albumin, Blood 2.6 g/dL (3.4-5.0); Anion Gap 10 mmol/L (6-16); Blood Urea Nitrogen 28 mg/dL (8-24); CO2, Blood 20 mmol/L (21-32); Calcium, Blood 8.6 mg/dL (8.5-10.1); Chloride, Blood 113 mmol/L (98-108); Creatinine, Blood 1.22 mg/dL (0.40-1.00); Glomerular Filtration Rate 45 (60-); Glucose, Blood 113 mg/dL (70-99); Magnesium, Blood 1.7 mg/dL (1.6-2.4); Phosphorus, Blood 4.2 mg/dL (2.5-4.9); Potassium, Blood 4.6 mmol/L (3.5-5.5); Sodium, Blood 143 mmol/L (136-145)
[2019-02-01] MEDS ORDERED: INSULANPEN SC (15:58)
[2019-02-01] MEDS ORDERED: Humalog100 UNIT/3 SC (16:01)
[2019-02-01] MEDS ORDERED: SODBIC650 PO (16:01)
[2019-02-01] MEDS ORDERED: LOKELMA10 GM PO (16:02)
[2019-02-01] MEDS ORDERED: DOC250 PO (16:02)
--- NOTE | 2019-02-01 17:09 | NUR ---
REPORT CALLED TO ESTEVAN AT [facility]. FUSE ASSEMBLER HERE TO PICK PT UP AT 1630. 2 PERSON MAX ASSIST TO W/C. TO CURB VIA W/C.
== END 2019-02-01 16:39 | DRG 871 ==
LOC: ER 12:02 → MEDS 15:58
PROVIDERS: Emergency Medicine; Internal Medicine; Internal Medicine Nephrology; ADMIT Family Medicine
DX: A41.51 Sepsis due to Escherichia coli [E. coli] (principal); G92 Toxic encephalopathy; Z68.41 Body mass index [BMI] 40.0-44.9, adult; N25.81 Secondary hyperparathyroidism of renal origin; E87.2 Acidosis; N17.9 Acute kidney failure, unspecified; N39.0 Urinary tract infection, site not specified; N18.3 Chronic kidney disease, stage 3 (moderate); Z87.891 Personal history of nicotine dependence; E66.01 Morbid (severe) obesity due to excess calories; K21.9 Gastro-esophageal reflux disease without esophagitis; N32.81 Overactive bladder; E11.22 Type 2 diabetes mellitus with diabetic chronic kidney disease; I12.9 Hypertensive chronic kidney disease with stage 1 through stage 4 chronic kidney disease, or unspecified chronic kidney disease; Z86.73 Personal history of transient ischemic attack (TIA), and cerebral infarction without residual deficits; E87.5 Hyperkalemia; E83.52 Hypercalcemia; D63.1 Anemia in chronic kidney disease; Z88.0 Allergy status to penicillin; Z79.4 Long term (current) use of insulin
CPT/HCPCS: 36415; 36600; 51702; 71046; 76770; 80048; 80053; 80069; 81001; 82330; 82374; 82435; 82550; 82803; 82947; 83036; 83605; 83735; 84100; 84132; 84295; 84550; 85014; 85018; 85025; 85610; 85730; 87040; 87077; 87086; 87186; 93005; 93010; 94640; 94644; 94760; 96361; 96365; 96375; 97110; 97162; 97166; 97530; 97535; 99285-25; A9270; A9270-GY; C1751; J0610; J0696; J0881; J1644; J1815; J1940; J1956; J2185; J2405; J2765; J7030; J7040; J7042; J7070; J7799; Q0163

== ENCOUNTER 2019-02-10 18:27 | Emergency (ER) | payer MEDICARE ==
[~2019-02-10] VITALS: Ht 154.9 cm; Wt 116.1 kg
[~2019-02-10 18:27] MED LIST changes: +ACET325 PO; +ACTOS30 MG PO; +ASCO500 PO; +Aspir 8181 MG PO; +CALC.25 PO; +CALCIUM CARBON500 M1 PO; +DOC250 PO; +FERSU300 PO; +Florastor250 MG PO; +INSULANPEN SC; +LEVFLO500 PO; +LOKELMA10 GM PO; +ONDA4ODT MM; +SODBIC650 PO; +TOPI25 PO; +TUMS500 MG PO; +Zestril30 MG PO
[2019-02-10] MEDS ORDERED: Cleocin HCl300 MG PO (19:42)
== END 2019-02-10 20:04 | disposition home or self-care (01) ==
LOC: ER 18:27
DX: R04.0 Epistaxis (principal); Z88.0 Allergy status to penicillin; Z88.1 Allergy status to other antibiotic agents; Z88.2 Allergy status to sulfonamides; Z79.899 Other long term (current) drug therapy; Z79.82 Long term (current) use of aspirin; Z79.4 Long term (current) use of insulin; I12.9 Hypertensive chronic kidney disease with stage 1 through stage 4 chronic kidney disease, or unspecified chronic kidney disease; N18.3 Chronic kidney disease, stage 3 (moderate); Z86.73 Personal history of transient ischemic attack (TIA), and cerebral infarction without residual deficits; E11.22 Type 2 diabetes mellitus with diabetic chronic kidney disease; Z87.891 Personal history of nicotine dependence
CPT/HCPCS: 30901; 99283-25

== ENCOUNTER → 2019-03-09 | Outpatient (CLI) | payer MEDICARE ==
[~2019-03-09] MED LIST changes: +Cleocin HCl300 MG PO
[2019-03-09 19:34] LABS: Bilirubin, Urine Neg (Neg); Blood, Urine 3+ (Neg); Glucose Qualitative, Urine Neg (Neg); Ketones, Urine Neg (Neg); Leukocyte Esterase, Urine 3+ (Neg); Nitrite, Urine Neg (Neg); Protein, Urine 2+ (Neg); Specific Gravity, Urine 1.005 (1.003-1.022); Urobilinogen, Urine NORM (Normal)
[2019-03-09 19:47] LABS: Appearance, Urine Hazy (Clear); Color, Urine Yellow (P-Yellow)
[2019-03-09 19:49] LABS: Bacteria Many /hpf; Squamous Epithelial Cells Rare /hpf (Few); White Blood Cells, Urine 25-50 /hpf (0-5)
== END | disposition home or self-care (01) ==
LOC: LAB SHORT 18:33 → LAB 18:33
PROVIDERS: Family Medicine
DX: N39.0 Urinary tract infection, site not specified (principal)
CPT/HCPCS: 81001

== ENCOUNTER → 2019-03-30 | Outpatient (CLI) | payer MEDICARE ==
[2019-04-19 14:08] LABS: Stool Occult Bld Immuno 1 Negative (NEGATIVE)
== END | disposition home or self-care (01) ==
LOC: LAB 09:07 → LAB SHORT 09:07
PROVIDERS: Family Medicine
DX: Z12.11 Encounter for screening for malignant neoplasm of colon (principal)
CPT/HCPCS: G0328

== ENCOUNTER → 2019-11-23 | Outpatient (CLI) | payer MEDICARE ==
[2019-11-23 20:13] LABS: Appearance, Urine Clear (Clear); Bilirubin, Urine Neg (Neg); Blood, Urine Neg (Neg); Color, Urine Yellow (P-Yellow); Glucose Qualitative, Urine Neg (Neg); Ketones, Urine Neg (Neg); Leukocyte Esterase, Urine 3+ (Neg); Nitrite, Urine Neg (Neg); Protein, Urine Neg (Neg); Urobilinogen, Urine NORM (Normal); pH, Urine 6.5 (5.0-8.0)
[2019-11-23 20:22] LABS: Bacteria Mod /hpf; Red Blood Cells, Urine 0-2 /hpf (0-2); Squamous Epithelial Cells Few /hpf (Few)
== END | disposition home or self-care (01) ==
LOC: LAB SHORT 18:29 → LAB 18:29
PROVIDERS: Family Medicine
DX: N39.0 Urinary tract infection, site not specified (principal)
CPT/HCPCS: 81001; 87077; 87086; 87186

== ENCOUNTER → 2019-12-20 | Outpatient (CLI) | payer MEDICARE ==
[2019-12-20 16:30] LABS: Bilirubin, Urine Neg (Neg); Blood, Urine Neg (Neg); Glucose Qualitative, Urine Neg (Neg); Ketones, Urine Neg (Neg); Leukocyte Esterase, Urine 2+ (Neg); Nitrite, Urine Neg (Neg); Protein, Urine Neg (Neg); Urobilinogen, Urine NORM (Normal); pH, Urine 6.5 (5.0-8.0)
[2019-12-20 16:36] LABS: Color, Urine Yellow (P-Yellow)
[2019-12-20 16:37] LABS: Appearance, Urine Hazy (Clear)
[2019-12-20 16:38] LABS: Red Blood Cells, Urine 0-2 /hpf (0-2); Squamous Epithelial Cells Few /hpf (Few)
[2019-12-20 16:39] LABS: Bacteria Mod /hpf
== END | disposition home or self-care (01) ==
LOC: LAB 13:00 → LAB SHORT 13:00
PROVIDERS: Family Medicine
DX: N39.0 Urinary tract infection, site not specified (principal)
CPT/HCPCS: 81001; 87077; 87086; 87186

== ENCOUNTER → 2020-02-13 | Outpatient (CLI) | payer MEDICARE ==
[2020-02-13 19:18] LABS: Appearance, Urine Clear (Clear); Bilirubin, Urine Neg (Neg); Blood, Urine Neg (Neg); Color, Urine Yellow (P-Yellow); Glucose Qualitative, Urine Neg (Neg); Ketones, Urine Neg (Neg); Leukocyte Esterase, Urine 3+ (Neg); Nitrite, Urine Neg (Neg); Protein, Urine Neg (Neg); Urobilinogen, Urine NORM (Normal); pH, Urine 6.5 (5.0-8.0)
[2020-02-13 19:40] LABS: Bacteria Few /hpf; Squamous Epithelial Cells Mod /hpf (Few)
== END | disposition home or self-care (01) ==
LOC: PLD 19:12
PROVIDERS: Family Medicine
DX: N39.0 Urinary tract infection, site not specified (principal)
CPT/HCPCS: 81001

== ENCOUNTER → 2020-03-27 | Outpatient (CLI) | payer MEDICARE ==
[2020-03-27 12:40] LABS: Bilirubin, Urine Neg (Neg); Blood, Urine 1+ (Neg); Glucose Qualitative, Urine Neg (Neg); Ketones, Urine Neg (Neg); Leukocyte Esterase, Urine 3+ (Neg); Nitrite, Urine Neg (Neg); Protein, Urine 1+ (Neg); Specific Gravity, Urine 1.005 (1.003-1.022); Urobilinogen, Urine NORM (Normal)
[2020-03-27 12:57] LABS: Appearance, Urine Clear (Clear); Color, Urine Pale Yellow (P-Yellow)
[2020-03-27 12:58] LABS: White Blood Cells, Urine 50-100 /hpf (0-5)
[2020-03-27 12:59] LABS: Bacteria Mod /hpf; Squamous Epithelial Cells Few /hpf (Few)
== END | disposition home or self-care (01) ==
LOC: LAB 07:10 → LAB SHORT 07:10
PROVIDERS: Family Medicine
DX: N39.0 Urinary tract infection, site not specified (principal)
CPT/HCPCS: 81001; 87077; 87086; 87186

== ENCOUNTER 2020-05-31 15:52 | Emergency (ER) | payer MEDICARE ==
[~2020-05-31] VITALS: Ht 154.9 cm; Wt 113.4 kg
[2020-05-31 17:25] LABS: Calcium, Ionized (POC) 1.07 mmol/L (1.10-1.46); Chloride (POC) 106 mmol/L (98-108); Creatinine (POC) 2.1 mg/dL (0.6-1.0); Glucose (ISTAT POC) 179 mg/dL (70-99); Hemoglobin (POC) 11.6 g/dL (12.0-16.0); Potassium (POC) 4.1 mmol/L (3.5-5.5); Sodium (POC) 140 mmol/L (135-148); Total CO2 (POC) 28 mmol/L (21-32)
== END 2020-05-31 21:03 | disposition home or self-care (01) ==
LOC: ER 15:52
PROVIDERS: Physician Assistant
DX: R04.0 Epistaxis (principal); I12.9 Hypertensive chronic kidney disease with stage 1 through stage 4 chronic kidney disease, or unspecified chronic kidney disease; E11.22 Type 2 diabetes mellitus with diabetic chronic kidney disease; N18.30 Chronic kidney disease, stage 3 unspecified; J44.9 Chronic obstructive pulmonary disease, unspecified; E03.9 Hypothyroidism, unspecified; K21.9 Gastro-esophageal reflux disease without esophagitis; Z88.0 Allergy status to penicillin; Z88.2 Allergy status to sulfonamides; Z88.1 Allergy status to other antibiotic agents; Z79.899 Other long term (current) drug therapy; Z79.4 Long term (current) use of insulin; Z86.73 Personal history of transient ischemic attack (TIA), and cerebral infarction without residual deficits
CPT/HCPCS: 36415; 80047; 85014; 99283; A9270

== ENCOUNTER → 2020-06-18 | Outpatient (CLI) | payer MEDICARE ==
[2020-06-18 16:54] LABS: Appearance, Urine Hazy (Clear); Bilirubin, Urine Neg (Neg); Blood, Urine Neg (Neg); Color, Urine Yellow (P-Yellow); Glucose Qualitative, Urine Neg (Neg); Ketones, Urine Neg (Neg); Leukocyte Esterase, Urine 2+ (Neg); Nitrite, Urine Pos (Neg); Protein, Urine Neg (Neg); Urobilinogen, Urine NORM (Normal)
[2020-06-18 17:07] LABS: White Blood Cells, Urine 25-50 /hpf (0-5)
[2020-06-18 17:08] LABS: Bacteria Many /hpf; Red Blood Cells, Urine 0-2 /hpf (0-2); Squamous Epithelial Cells Few /hpf (Few)
== END | disposition home or self-care (01) ==
LOC: LAB SHORT 13:00
PROVIDERS: Family Medicine
DX: N39.0 Urinary tract infection, site not specified (principal)
CPT/HCPCS: 81001; 87077; 87086; 87147; 87186

== ENCOUNTER 2020-06-23 13:19 | Emergency (ER) | payer MEDICARE ==
[~2020-06-23] VITALS: Ht 154.9 cm; Wt 226.8 kg
== END 2020-06-23 15:37 | disposition left against medical advice (07) ==
LOC: ER 13:19
DX: M79.89 Other specified soft tissue disorders (principal); Z53.21 Procedure and treatment not carried out due to patient leaving prior to being seen by health care provider
CPT/HCPCS: 71046; 99283-25

== ENCOUNTER → 2020-10-03 | Outpatient (CLI) | payer MEDICARE ==
[2020-10-03 17:06] LABS: Appearance, Urine Cloudy (Clear); Bilirubin, Urine Neg (Neg); Blood, Urine 2+ (Neg); Color, Urine Yellow (P-Yellow); Glucose Qualitative, Urine Neg (Neg); Ketones, Urine Neg (Neg); Leukocyte Esterase, Urine 3+ (Neg); Nitrite, Urine Pos (Neg); Protein, Urine 2+ (Neg); Urobilinogen, Urine NORM (Normal)
[2020-10-03 17:12] LABS: Red Blood Cells, Urine 0-2 /hpf (0-2); White Blood Cells, Urine TNTC /hpf (0-5)
[2020-10-03 17:13] LABS: Bacteria Many /hpf; Squamous Epithelial Cells Few /hpf (Few)
== END | disposition home or self-care (01) ==
LOC: LAB 12:00 → LAB SHORT 12:00
PROVIDERS: Family Medicine
DX: N39.0 Urinary tract infection, site not specified (principal)
CPT/HCPCS: 81001; 87077; 87086; 87186

== ENCOUNTER 2021-05-23 11:29 | Emergency (ER) | payer MEDICARE ==
[~2021-05-23] VITALS: Ht 157.5 cm; Wt 122.5 kg
[2021-05-23] MEDS ORDERED: NYAMYC TOP (12:34)
[2021-05-23] MEDS ORDERED: Aspir 8181 MG PO (12:36)
[2021-05-23] MEDS ORDERED: Naprosyn500 MG PO (13:05)
== END 2021-05-23 15:02 | disposition home or self-care (01) ==
LOC: ER 11:29
DX: M79.641 Pain in right hand (principal); L53.9 Erythematous condition, unspecified; Z88.0 Allergy status to penicillin; Z79.899 Other long term (current) drug therapy; E11.22 Type 2 diabetes mellitus with diabetic chronic kidney disease; I12.9 Hypertensive chronic kidney disease with stage 1 through stage 4 chronic kidney disease, or unspecified chronic kidney disease; N18.30 Chronic kidney disease, stage 3 unspecified; E78.5 Hyperlipidemia, unspecified; J44.9 Chronic obstructive pulmonary disease, unspecified; K21.9 Gastro-esophageal reflux disease without esophagitis
CPT/HCPCS: 73130; 99283-25; A9270

== ENCOUNTER 2021-06-12 05:37 | Emergency (ER) | payer MEDICARE ==
[~2021-06-12] VITALS: Ht 157.5 cm; Wt 113.4 kg
[~2021-06-12 05:37] MED LIST changes: +NYAMYC TOP; +Naprosyn500 MG PO
== END 2021-06-12 09:00 | disposition home or self-care (01) ==
LOC: ER 05:37
DX: R04.0 Epistaxis (principal); I12.9 Hypertensive chronic kidney disease with stage 1 through stage 4 chronic kidney disease, or unspecified chronic kidney disease; E11.22 Type 2 diabetes mellitus with diabetic chronic kidney disease; N18.30 Chronic kidney disease, stage 3 unspecified; E78.5 Hyperlipidemia, unspecified; J44.9 Chronic obstructive pulmonary disease, unspecified; K21.9 Gastro-esophageal reflux disease without esophagitis; Z86.73 Personal history of transient ischemic attack (TIA), and cerebral infarction without residual deficits; Z88.0 Allergy status to penicillin; Z88.2 Allergy status to sulfonamides; Z88.8 Allergy status to other drugs, medicaments and biological substances; Z79.899 Other long term (current) drug therapy; Z79.82 Long term (current) use of aspirin; Z79.4 Long term (current) use of insulin; Z87.891 Personal history of nicotine dependence
CPT/HCPCS: 30901; 99283

== ENCOUNTER 2021-06-24 15:35 | Emergency (ER) | payer MEDICARE ==
[~2021-06-24] VITALS: Ht 157.5 cm; Wt 226.8 kg
[2021-06-24 16:30] LABS: BASOPHILS ABSOLUTE AUTO 0.04 K/mm3 (0.00-0.23); BASOPHILS PERCENT AUTO 0 % (0-2); EOSINOPHILS ABSOLUTE AUTO 0.26 K/mm3 (0.00-0.68); EOSINOPHILS PERCENT AUTO 3 % (0-6); Hemoglobin 9.9 g/dL (11.5-16.0); IMMATURE GRAN ABSOLUTE AUTO 0.07 K/mm3 (0.00-0.10); IMMATURE GRAN PERCENT AUTO 1 % (0-1); LYMPHOCYTES ABSOLUTE AUTO 1.12 K/mm3 (0.84-5.20); LYMPHOCYTES PERCENT AUTO 13 % (21-46); MONOCYTES ABSOLUTE AUTO 0.78 K/mm3 (0.16-1.47); MONOCYTES PERCENT AUTO 9 % (4-13); Mean Corpuscular HGB 27.8 pg (26.0-34.0); Mean Corpuscular Volume 93 fL (80-100); NEUTROPHILS ABSOLUTE AUTO 6.63 K/mm3 (1.96-9.15); NEUTROPHILS PERCENT AUTO 75 % (41-73); Platelet Count 275 K/mm3 (150-400); RDW Coefficient Variation 16.7 % (11.7-14.2); RDW Standard Deviation 56.8 fL (35.1-46.3); Red Blood Cell Count 3.56 M/mm3 (3.80-5.20)
[2021-06-24 17:01] LABS: Albumin/Globulin Ratio 0.6 (0.8-1.8); Bilirubin, Total 0.3 mg/dL (0.1-1.0); Bun/Creatinine Ratio 30.9 (12.0-20.0); Calcium, Blood 8.9 mg/dL (8.5-10.1); Creatinine, Blood 3.33 mg/dL (0.40-1.00); Globulin, Blood 4.8 g/dL (2.2-4.0); Potassium, Blood 4.5 mmol/L (3.5-5.5); Total Protein, Blood 7.8 g/dL (6.4-8.2)
[2021-06-24 17:58] LABS: Source, Urine Clean Catch
[2021-06-24 18:00] LABS: Appearance, Urine Cloudy (Clear); Bilirubin, Urine Neg (Neg); Blood, Urine 1+ (Neg); Color, Urine Yellow (P-Yellow); Glucose Qualitative, Urine Neg (Neg); Ketones, Urine Neg (Neg); Leukocyte Esterase, Urine 3+ (Neg); Nitrite, Urine Pos (Neg); Protein, Urine 1+ (Neg); Specific Gravity, Urine 1.015 (1.003-1.022); Urobilinogen, Urine NORM (Normal); pH, Urine 6.5 (5.0-8.0)
[2021-06-24 18:32] LABS: White Blood Cells, Urine 25-50 /hpf (0-5)
[2021-06-24 18:33] LABS: Bacteria Many /hpf; Squamous Epithelial Cells Few /hpf (Few)
[2021-06-24 18:34] LABS: Hyaline Casts 0-2 /lpf (0-2)
== END 2021-06-24 20:11 | disposition home or self-care (01) ==
LOC: ER 15:35
PROVIDERS: Physician Assistant
DX: R04.0 Epistaxis (principal); E11.22 Type 2 diabetes mellitus with diabetic chronic kidney disease; N18.9 Chronic kidney disease, unspecified; Z79.4 Long term (current) use of insulin; Z88.0 Allergy status to penicillin; Z88.1 Allergy status to other antibiotic agents; Z88.2 Allergy status to sulfonamides; Z79.899 Other long term (current) drug therapy; Z87.891 Personal history of nicotine dependence
CPT/HCPCS: 36415; 80053; 81001; 83690; 85025

== ENCOUNTER 2021-07-11 07:15 | Emergency (ER) | payer MEDICARE ==
[~2021-07-11] VITALS: Ht 160 cm; Wt 158.8 kg
== END 2021-07-11 08:09 | disposition home or self-care (01) ==
LOC: ER 07:15
DX: T38.3X1A Poisoning by insulin and oral hypoglycemic [antidiabetic] drugs, accidental (unintentional), initial encounter (principal); F03.90 Unspecified dementia, unspecified severity, without behavioral disturbance, psychotic disturbance, mood disturbance, and anxiety; E11.9 Type 2 diabetes mellitus without complications; Z88.1 Allergy status to other antibiotic agents; Z88.0 Allergy status to penicillin; Z88.2 Allergy status to sulfonamides; Z79.4 Long term (current) use of insulin; Z79.82 Long term (current) use of aspirin; Z79.899 Other long term (current) drug therapy; Y92.9 Unspecified place or not applicable
CPT/HCPCS: 82947

== ENCOUNTER 2021-07-14 14:59 | Inpatient (IN) | payer MEDICARE, OTHER ==
[~2021-07-14] VITALS: Ht 157.5 cm; Wt 119.0 kg
[2021-07-14] MEDS ORDERED: FURO80 (16:43)
[2021-07-14] MEDS ORDERED: NOVOLIN 70100 UNIT/3 (16:45)
[2021-07-14] MEDS ORDERED: INSULANI SC (16:51)
[2021-07-14] MEDS ORDERED: FURO80 PO ×2 (16:55→16:57)
[2021-07-14 17:03] LABS: BASOPHILS ABSOLUTE AUTO 0.03 K/mm3 (0.00-0.23); BASOPHILS PERCENT AUTO 0 % (0-2); EOSINOPHILS ABSOLUTE AUTO 0.22 K/mm3 (0.00-0.68); EOSINOPHILS PERCENT AUTO 3 % (0-6); Hematocrit 28.4 % (33.0-51.0); Hemoglobin 8.4 g/dL (11.5-16.0); IMMATURE GRAN ABSOLUTE AUTO 0.11 K/mm3 (0.00-0.10); IMMATURE GRAN PERCENT AUTO 1 % (0-1); LYMPHOCYTES PERCENT AUTO 15 % (21-46); MONOCYTES ABSOLUTE AUTO 0.82 K/mm3 (0.16-1.47); MONOCYTES PERCENT AUTO 10 % (4-13); Mean Corpuscular HGB 27.6 pg (26.0-34.0); Mean Corpuscular HGB Conc 29.6 g/dL (31.5-36.5); Mean Corpuscular Volume 93 fL (80-100); Mean Platelet Volume 9.9 fL (9.1-12.4); NEUTROPHILS ABSOLUTE AUTO 6.16 K/mm3 (1.96-9.15); NEUTROPHILS PERCENT AUTO 71 % (41-73); Platelet Count 269 K/mm3 (150-400); RDW Coefficient Variation 16.8 % (11.7-14.2); RDW Standard Deviation 57.2 fL (35.1-46.3); Red Blood Cell Count 3.04 M/mm3 (3.80-5.20); White Blood Cell Count 8.64 K/mm3 (4.00-11.30)
[2021-07-14 17:22] LABS: Albumin, Blood 2.5 g/dL (3.4-5.0); Albumin/Globulin Ratio 0.7 (0.8-1.8); Bilirubin, Total 0.3 mg/dL (0.1-1.0); Bun/Creatinine Ratio 24.4 (12.0-20.0); Calcium, Blood 8.6 mg/dL (8.5-10.1); Creatinine, Blood 4.8 mg/dL (0.40-1.00); Globulin, Blood 3.8 g/dL (2.2-4.0); Potassium, Blood 4.7 mmol/L (3.5-5.5); Total Protein, Blood 6.3 g/dL (6.4-8.2)
[2021-07-14 18:13] LABS: International Normalized Ratio 1.14; Prothrombin Time Results 11.9 Sec (9.7-11.5)
[2021-07-14 19:39] LABS: Source, Urine Clean Catch
[2021-07-14 19:50] LABS: Appearance, Urine Hazy (Clear); Bilirubin, Urine Neg (Neg); Blood, Urine 2+ (Neg); Glucose Qualitative, Urine Neg (Neg); Ketones, Urine Neg (Neg); Leukocyte Esterase, Urine 3+ (Neg); Nitrite, Urine Neg (Neg); Protein, Urine 2+ (Neg); Urobilinogen, Urine NORM (Normal)
[2021-07-14 20:02] LABS: Color, Urine Pale Yellow (P-Yellow)
[2021-07-14 20:04] LABS: Bacteria Many /hpf; Red Blood Cells, Urine 0-2 /hpf (0-2); Squamous Epithelial Cells Few /hpf (Few); White Blood Cells, Urine 50-100 /hpf (0-5)
[2021-07-14 20:28] LABS: Influenza A, PCR NEGATIVE (NEGATIVE); Influenza B, PCR NEGATIVE (NEGATIVE); Resp Syncytial Virus, PCR NEGATIVE (NEGATIVE); SARS-Cov-2 (COVID-19) PCR, MMC NEGATIVE (NEGATIVE)
--- NOTE | 2021-07-14 20:30 | NUR ---
PT ADMITTED TO ROOM ICU 8 FROM ED. PT SLIDE TRANSFERRED FROM [facility] TO BED. PT FORGETFUL AND IS SOMEWHAT DISORIENTED. DID REORIENT PT NEEDED. PT NOT SURE WHY SHE IS IN THE HOSPITAL. THIS INFORMATION EXCHANGED WITH PT. PT HAS NO S/S BLEEDING AT THIS TIME. WILL REVIEW CHART AND PLAN OF CARE. PT DID ARRIVE AT 1945 TO ROOM.
[2021-07-14 23:27] LABS: Hematocrit 26.4 % (33.0-51.0); Hemoglobin 7.7 g/dL (11.5-16.0)
--- NOTE | 2021-07-14 23:57 | NUR ---
PLACED 20 GAUGE POWERGLIDE PRO TO MINA. PT TOLERATED THIS WELL. URINE SAMPLE SENT TO LAB. DR SUGGS HAS COME IN TO SEE PT. VERBAL ORDERS RECEIVED. DR GUILLORY ALSO COMES TO SEE PT. ORDERS ALSO RECIEVED. PT HAS GONE FOR HEAD CT AND CHEST XRAY. NEEDED REORIENTATION TO WHAT WAS OCCURRING. PT CURRENTLY RESTING IN BED. PROTONIX AT 8 MG/HOUR. LEVOPHED STARTED AT LOW DOSE 2MCG'S FOR HYPOTENSION. WILL MONITOR AND TITRATE NEEDED.
[2021-07-15] MEDS ORDERED: Florastor250 MG PO (00:21)
[2021-07-15] MEDS ORDERED: FURO80 PO (00:23)
[2021-07-15] MEDS ORDERED: Prinivil10 MG PO (00:29)
[2021-07-15] MEDS ORDERED: NOVOLOG FL100 UNIT/3 SC (00:36)
[2021-07-15 00:39] LABS: U Amphetamine Screen Not Detected; U Barbituate Screen Not Detected; U Benzodiazapine Screen Not Detected; U Buprenorphine Screen Not Detected; U Cannabinoids Screen Not Detected; U Cocaine Screen Not Detected; U Methadone Screen Not Detected; U Methamphetamine Screen Not Detected; U Opiates Screen Not Detected; U Oxycodone Screen Not Detected; U Phencyclidine Screen Not Detected; U Propoxyphene Screen Not Detected
[2021-07-15] MEDS ORDERED: THERA-D2000 UNIT PO (00:43)
[2021-07-15] MEDS ORDERED: LOPERAMIDE PO (00:46)
--- NOTE | 2021-07-15 07:29 | NUR ---
ASSUMED CARE I HAVE ASSUMED CARE OF THIS PATIENT AT 0700 WITH ANSON ALMAZAN.
--- NOTE | 2021-07-15 07:47 | NUR ---
PHONE CALL ANSON ALMAZAN CALLED DR. RICHARDS TO UPDATE HIM ON CONTINUED HYPOTENSION AND LEVOPHED INFUSING THROUGH HAND IV. TELEPHONE ORDER FOR CRITICAL CARE CONSULT OBTAINED.
--- NOTE | 2021-07-15 07:55 | NUR ---
LAB: Lab called this RN regarding duplicate H&H at 0720. RN instructed lab to cancel order as CBC was drawn at 0600 and resaulted with improved H&H.
--- NOTE | 2021-07-15 07:58 | NUR ---
PROVIDER UPDATE: Discussed paper lab results with Dr Will due to downtime last night. Verbal order for repeat H/H at 1200.
[2021-07-15 08:48] LABS: BASOPHILS ABSOLUTE AUTO 0.04 K/mm3 (0.00-0.23); BASOPHILS PERCENT AUTO 0 % (0-2); EOSINOPHILS ABSOLUTE AUTO 0.32 K/mm3 (0.00-0.68); EOSINOPHILS PERCENT AUTO 3 % (0-6); Hematocrit 28.9 % (33.0-51.0); Hemoglobin 8.4 g/dL (11.5-16.0); IMMATURE GRAN ABSOLUTE AUTO 0.14 K/mm3 (0.00-0.10); IMMATURE GRAN PERCENT AUTO 1 % (0-1); LYMPHOCYTES ABSOLUTE AUTO 1.87 K/mm3 (0.84-5.20); LYMPHOCYTES PERCENT AUTO 17 % (21-46); MONOCYTES ABSOLUTE AUTO 1.09 K/mm3 (0.16-1.47); MONOCYTES PERCENT AUTO 10 % (4-13); Mean Corpuscular HGB 27.5 pg (26.0-34.0); Mean Corpuscular HGB Conc 29.1 g/dL (31.5-36.5); Mean Corpuscular Volume 94 fL (80-100); Mean Platelet Volume 9.9 fL (9.1-12.4); NEUTROPHILS ABSOLUTE AUTO 7.52 K/mm3 (1.96-9.15); NEUTROPHILS PERCENT AUTO 69 % (41-73); Platelet Count 326 K/mm3 (150-400); RDW Coefficient Variation 16.8 % (11.7-14.2); RDW Standard Deviation 57.6 fL (35.1-46.3); Red Blood Cell Count 3.06 M/mm3 (3.80-5.20); White Blood Cell Count 10.98 K/mm3 (4.00-11.30)
--- NOTE | 2021-07-15 08:53 | NUR ---
PHONE CALL: This RN called pt's medical POA to obtain PICC line insertion an blood consents. No answer. Pt is states she is "not sure" about the PICC line insertion procesure.
[2021-07-15 08:57] LABS: Bun/Creatinine Ratio 24.7 (12.0-20.0); Calcium, Blood 7.7 mg/dL (8.5-10.1); Creatinine, Blood 4.61 mg/dL (0.40-1.00); Potassium, Blood 4.1 mmol/L (3.5-5.5)
--- NOTE | 2021-07-15 09:12 | NUR ---
PHONE CONSENT: This RN spoke with pt's medical POA and son, Antonio. Consent obtained for blood transfusion and PICC line placement. Charge nurse, Tere, also present as second witness.
--- NOTE | 2021-07-15 09:34 | NUR ---
CRITICAL CARE CONSULT: Case discussed with Dr Nathan.
--- NOTE | 2021-07-15 13:10 | NUR ---
EXTRAVASATION: Dr Nathan called to bedside to assess hand IV. IV appears slightly edematous with a bluish hue around catheter. Provider agrees site should be treated for possible extravasation. This RN discussed with pharmacy.
[2021-07-15 13:27] LABS: Hematocrit 29.7 % (33.0-51.0); Hemoglobin 8.5 g/dL (11.5-16.0)
--- NOTE | 2021-07-15 13:32 | NUR ---
REGITINE: RN instructed to push IV regitine into extravasated line. Pharmacy at bedside watching RN administer medication. Blood pressure on continuous cycle no monitor for hypotension.
--- NOTE | 2021-07-15 14:15 | NUR ---
UPDATE: Dr Nathan notified of pt's status; norepi currently running at 24 mcg
--- NOTE | 2021-07-15 14:43 | NUR ---
INTO ICU [address] TO [address] PATIENT READY DR. ROSAS AT BEDSIDE. PATIENT PREPPED FOR PROCEDURE.
--- NOTE | 2021-07-15 15:14 | NUR ---
07/15/21 1514 Cali Franks See Anesthesia record DR CUEVAS
--- NOTE | 2021-07-15 18:12 | NUR ---
SHIFT SUMMARY: Neuro: Pt opens eyes to voice. She is oriented to self and occasionally place with reinforcement. Hx of dementia at baseline. Respiratory: Clear/Dim throughout. Pt on 2L NC. She has periods of apnea while sleeping and will desat down to low 80's. Sats increase back up to 90s with stimulation. Cardiac: MAP goal currently 55. levophed infusing through PICC line and titrated down to 9mcg/min. Sinus arrythmia with HR in 60-70s GI/: Pt was NPO for EGD. She passed her bedside swallow with RN; now taking sips of water. Tray ordered for dinner. Temp prob davis in place and draining to gravity. No BM today. Skin: redness noted to left anterior lower leg. Mild edema noted to infiltration site of left hand. IV still in place per instruction from critical care pharmacist. Psych: pt anxious but cooperative with reassurance
--- NOTE | 2021-07-15 20:00 | NUR ---
ASSUMED CARE OF PT AT 1915. REPORT RECEIVED AT BEDSIDE. PT PRESENTS IN BED. ALERT AND DISORIENTED. NEEDS REORIENTATION. PT CURRENTLY WITH LEVOPHED DRIP AT 9 MCG'S/MIN. WILL TITRATE DOWN FURTHER ABLE. WILL REVIEW CHART AND PLAN OF CARE FOR THIS PT.
[2021-07-15 21:07] LABS: Hematocrit 26.4 % (33.0-51.0); Hemoglobin 7.6 g/dL (11.5-16.0)
[2021-07-16 00:37] LABS: Hematocrit 25.1 % (33.0-51.0); Hemoglobin 7.3 g/dL (11.5-16.0)
--- NOTE | 2021-07-16 01:06 | NUR ---
HAVE BEEN ABLE TO TITRATE LEVOPHED DOWN TO 3 MCG'S/MIN. MAP MAINTAINS > 65. PT HAS HAD SEVERAL SMALL TO MEDIUM STOOLS (INCONTINENT) THAT WERE BLACK IN NATURE. PASTY WELL. PT'S GLUTEAL AREAS ESCORIATED. CALAMAZYME CREAM PLACED WITH MYCOSTATIN POWDER TO AID IN HEALING. WILL CONTINUE TO MONITOR.
--- NOTE | 2021-07-16 04:00 | NUR ---
LEVOPHED IS CURRENTLY OFF. WILL MONITOR PT FOR ABILITY TO KEEEP PRESSORS OFF. SEE VS FLOWSHEET FOR DETAILS. DID CALL DR PASTORA ETIENNE TO OBTAIN ORDER FOR TYLENOL. PT STATES HER BACK IS PAINFUL FROM BEING IN BED. PT HAS BEEN MEDICATED WITH THE TYLENOL. CURRENTLY SLEEPING. WILL CONTINUE TO MONITOR.
[2021-07-16 05:24] LABS: BASOPHILS ABSOLUTE AUTO 0.02 K/mm3 (0.00-0.23); BASOPHILS PERCENT AUTO 0 % (0-2); EOSINOPHILS ABSOLUTE AUTO 0.12 K/mm3 (0.00-0.68); EOSINOPHILS PERCENT AUTO 2 % (0-6); Hematocrit 24.6 % (33.0-51.0); IMMATURE GRAN ABSOLUTE AUTO 0.07 K/mm3 (0.00-0.10); IMMATURE GRAN PERCENT AUTO 1 % (0-1); LYMPHOCYTES ABSOLUTE AUTO 0.87 K/mm3 (0.84-5.20); LYMPHOCYTES PERCENT AUTO 16 % (21-46); MONOCYTES ABSOLUTE AUTO 0.55 K/mm3 (0.16-1.47); MONOCYTES PERCENT AUTO 10 % (4-13); Mean Corpuscular HGB 27.5 pg (26.0-34.0); Mean Corpuscular HGB Conc 28.5 g/dL (31.5-36.5); Mean Corpuscular Volume 97 fL (80-100); Mean Platelet Volume 10.1 fL (9.1-12.4); NEUTROPHILS PERCENT AUTO 71 % (41-73); Platelet Count 211 K/mm3 (150-400); RDW Coefficient Variation 16.7 % (11.7-14.2); RDW Standard Deviation 58.2 fL (35.1-46.3); Red Blood Cell Count 2.55 M/mm3 (3.80-5.20); White Blood Cell Count 5.63 K/mm3 (4.00-11.30)
[2021-07-16 05:57] LABS: Albumin, Blood 2.7 g/dL (3.4-5.0); Anion Gap 9 mmol/L (6-16); Blood Urea Nitrogen 93 mg/dL (8-24); Bun/Creatinine Ratio 21.7 (12.0-20.0); CO2, Blood 22 mmol/L (21-32); Calcium, Blood 7.8 mg/dL (8.5-10.1); Chloride, Blood 116 mmol/L (98-108); Creatinine, Blood 4.29 mg/dL (0.40-1.00); Glomerular Filtration Rate 10 (60-); Glucose, Blood 124 mg/dL (70-99); Phosphorus, Blood 6.5 mg/dL (2.5-4.9); Potassium, Blood 4.3 mmol/L (3.5-5.5); Sodium, Blood 147 mmol/L (136-145)
--- NOTE | 2021-07-16 07:14 | NUR ---
ASSUME CARE: I have assumed care of this patient.
[2021-07-16 08:30] LABS: Hemoglobin 7.2 g/dL (11.5-16.0)
--- NOTE | 2021-07-16 10:20 | NUR ---
UPDATE: Case discussed with Dr Colon. She was notified of pt's blood sugar. Verbal order for lantus 30 units daily.
--- NOTE | 2021-07-16 10:34 | NUR ---
UPDATE: Rn attempting to reposition patient several times, unfortunately pt is unable to get comfortable and requests to lay flat on her back. RN educated pt pressure injury prevention; Needs reinforcement. Pt also keeps pulling oxygen off. RN has replaced the NC several times. Pt will allow NC to rest in her mouth while she is sleeping.
--- NOTE | 2021-07-16 11:09 | NUR ---
[facility]: This RN called pt's living facility to verify mobility. 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 Staff assists pts with her ADLs
[2021-07-16 12:43] LABS: Hematocrit 27.1 % (33.0-51.0); Hemoglobin 7.7 g/dL (11.5-16.0)
--- NOTE | 2021-07-16 14:18 | NUR ---
TRANSFER: Report given to ANSON Schwartz in PCU
--- NOTE | 2021-07-16 14:58 | NUR ---
TRANSFER/SUMMARY: Pt taken to PCU on classroom monitor via hospital bed. Neuro: no changes from yesterday. pt awakens easily and is oriend to self consistantly Cardiac: sinus rhythm on classroom monitor. blood pressures stable with MAP in the low 60s. Respiratory: Clear/dim on 2L nasal cannula. GI/: Pt on ADA diet. She took some bites of her yogurt this morning. Otherwise asking to sleep. MSK: Pt complaining of back, hip, and leg pain. RN with with OT to mobilize patient; she was up in chair for about an hour before she was taken back to bed via ceiling lift.
[2021-07-16 15:38] LABS: International Normalized Ratio 1.23; Prothrombin Time Results 12.7 Sec (9.7-11.5)
[2021-07-16 15:44] LABS: Percent Saturation 10.4 % (15.0-50.0)
--- NOTE | 2021-07-16 17:22 | NUR ---
NO ACUTE EVENTS SINCE ARRIVAL TO UNIT. PT IS ORIENTED TO SELF AND SURROUNDINGS, ABLE TO FOLLOW COMMANDS. PT REPOSITIONED AND BRIEF CHANGED WITH PERICARE COMPLETED BY STAFF. PT WORKED WITH OT. BED IN LOW POSITION, BED ALARM ON, CALL LIGHT WITHIN REACH. WCTM.
--- NOTE | 2021-07-16 21:05 | NUR ---
Assumed care 1900. VSS on 1-2L O2. Pt complaining of SOB around 2100 after repositioning, wheezing heard in upper airway and RT was called. RR 20-26, starting to ease up some. Pt had incontinent BM, loose. Color of stool was brown. Will continue to monitor.
--- NOTE | 2021-07-16 21:48 | NUR ---
Pt is only orientedx 1-2, only oriented to self and place on and off. Pt will ask the same questions several times. Pt has a history of dementia.
--- NOTE | 2021-07-16 22:21 | NUR ---
Pt complaining of SOB and work of breathing has increased some. RT called and giving breathing tx. Call out to hospitalist, waiting for call back. RR 20-26 and wheezing still heard in upper airway.
--- NOTE | 2021-07-16 22:24 | NUR ---
Dr. Ricardo notified via phone. PRN neb tx added, but no other orders at this time. RT gave prn neb, will continue to monitor.
--- NOTE | 2021-07-17 00:50 | NUR ---
Patient is still having RR 22-26 and work of breathing looks increased. Wheezy/ wet sounding breathing. MD notified. Pt does normally take lasix 80mg TID at home, but hasn't been taking this med due to hypotension & kidney function. Dr. Wolf is placing an order for chest xray and will do interventions based on chest xray results. SBP 130s, HR: 70-80s. Oxygen has been mid 90s on 2L. Will continue to monitor and follow up with MD.
--- NOTE | 2021-07-17 02:07 | NUR ---
Dr. Mendoza read chest xray and added bumex order. One time dose of bumex given to pt. VSS on 2L. Justin in place for accurate I/O.
--- NOTE | 2021-07-17 03:16 | NUR ---
Pt became anxious with people in room, desaturated 85-89. Increased oxygen to 3L and reassured pt that diuretic was given and it will help with shortness of breath as it pulls water off. After leaving room pt bounces back up to high 90s. Labs drawn from PICC line. Pt reported upset stomach, but not nauseous at this time. Pt did have diarrhea earlier in the night. Pt becomes dyspnic and increases RR quickly with any activity and with anxiety.
[2021-07-17 03:18] LABS: BASOPHILS ABSOLUTE AUTO 0.02 K/mm3 (0.00-0.23); BASOPHILS PERCENT AUTO 0 % (0-2); EOSINOPHILS ABSOLUTE AUTO 0.14 K/mm3 (0.00-0.68); EOSINOPHILS PERCENT AUTO 2 % (0-6); Hematocrit 29.2 % (33.0-51.0); Hemoglobin 8.4 g/dL (11.5-16.0); IMMATURE GRAN ABSOLUTE AUTO 0.08 K/mm3 (0.00-0.10); IMMATURE GRAN PERCENT AUTO 1 % (0-1); LYMPHOCYTES ABSOLUTE AUTO 0.61 K/mm3 (0.84-5.20); LYMPHOCYTES PERCENT AUTO 8 % (21-46); MONOCYTES ABSOLUTE AUTO 0.58 K/mm3 (0.16-1.47); MONOCYTES PERCENT AUTO 8 % (4-13); Mean Corpuscular HGB 27.4 pg (26.0-34.0); Mean Corpuscular HGB Conc 28.8 g/dL (31.5-36.5); Mean Corpuscular Volume 95 fL (80-100); NEUTROPHILS ABSOLUTE AUTO 6.09 K/mm3 (1.96-9.15); NEUTROPHILS PERCENT AUTO 81 % (41-73); Platelet Count 203 K/mm3 (150-400); RDW Coefficient Variation 16.7 % (11.7-14.2); RDW Standard Deviation 56.7 fL (35.1-46.3); Red Blood Cell Count 3.07 M/mm3 (3.80-5.20); White Blood Cell Count 7.52 K/mm3 (4.00-11.30)
[2021-07-17 03:20] LABS: Base Excess Venous -6.8 mmol/L; Bicarbonate Venous 18.9 mmol/L (24.0-30.0); PCO2 Venous 37.2 mmHg (38-42); PO2 Venous 39.2 mmHg (38-42); pH Blood Venous 7.32 (7.34-7.37)
[2021-07-17 03:42] LABS: Anion Gap 12 mmol/L (6-16); Blood Urea Nitrogen 86 mg/dL (8-24); Bun/Creatinine Ratio 20.7 (12.0-20.0); CO2, Blood 20 mmol/L (21-32); Calcium, Blood 8.4 mg/dL (8.5-10.1); Chloride, Blood 116 mmol/L (98-108); Creatinine, Blood 4.15 mg/dL (0.40-1.00); Glomerular Filtration Rate 10 (60-); Glucose, Blood 154 mg/dL (70-99); Potassium, Blood 4.6 mmol/L (3.5-5.5); Sodium, Blood 148 mmol/L (136-145)
--- NOTE | 2021-07-17 04:51 | NUR ---
Pt has only had 450ml out since bumex dose @0200.
--- NOTE | 2021-07-17 04:55 | NUR ---
Pt reporting SOB, RT called for prn neb tx. One time dose of bumex was given 0200.
--- NOTE | 2021-07-17 05:02 | NUR ---
Drophammer Operator Note: Pt is only oriented to self. Pt is alert when in room, but sleeping most of the time. VSS on 1-3L overnight, titrated up to 3L to sustain >92%. Pulled off oxygen a few times and will desat to low-mid 80s. Pt complained of SOB throughout the night. PRN nebs given by RT and one time dose of bumex given. Pt desats when she gets anxious as well. Seems to get overwhelmed easily. Q2hr turns. One episode of diarrhea. PICC in drawing and flushing well, caps changed. Tele: SR 70-80s. CBG 119 with evening check, held lantus due to pt not eating much and running low. Justin in place and draining well.
--- NOTE | 2021-07-17 13:11 | NUR ---
Supportive visit this afternoon. Pt resting in bed with her eyes closed. Per Primary RN request, this RN did not disturb her at this time. Spoke with Primary RN Chaya and discussed case. Pt confused routinely but has moments when she experiences some clarity. Spoke with Dr Senior who is covering for Primary Hospitalist of Pt. Dr Senior reports family may benefit from discussion regarding Pt's code status. Called and spoke with Pt's grandson Antonio. Provided update and engaged in therapeutic discussion regarding Pt's code status wishes. Educated on life sustaining treatment including risk factors and implications of CPR and Intubation. Antonio reports he would not want that for Pt but would also like to respect her wishes. He reports Pt completed a POLST with CPR and Full Treatment. He reports for now he would like to continue with Pt's wishes. Offered therapeutic listening and answered questions. He reports MD has called and discussed dialysis recommendations. He reports Pt has told him that she would not want dialysis. Answered questions regarding dialysis. Antonio expresses appreciation and reports no other concerns at this time. Palliative Care will remain available.
[2021-07-17 15:49] LABS: Albumin, Blood 2.7 g/dL (3.4-5.0); Anion Gap 5 mmol/L (6-16); Blood Urea Nitrogen 80 mg/dL (8-24); Bun/Creatinine Ratio 20.9 (12.0-20.0); CO2, Blood 22 mmol/L (21-32); Calcium, Blood 8.4 mg/dL (8.5-10.1); Chloride, Blood 119 mmol/L (98-108); Creatinine, Blood 3.83 mg/dL (0.40-1.00); Glomerular Filtration Rate 11 (60-); Glucose, Blood 269 mg/dL (70-99); Phosphorus, Blood 4.9 mg/dL (2.5-4.9); Potassium, Blood 4.2 mmol/L (3.5-5.5); Sodium, Blood 146 mmol/L (136-145)
[2021-07-17 16:29] LABS: Adenovirus F 40/41 Not Detected (NOT DETECT); Astrovirus Not Detected (NOT DETECT); Campylobacter Sp Not Detected (NOT DETECT); Cryptosporidium Not Detected (NOT DETECT); Cyclospora Cayetanensis Not Detected (NOT DETECT); E. Coli O157 Not Detected (NOT DETECT); Entamoeba Histolytica Not Detected (NOT DETECT); Enteroaggregative E. coli-EAEC Not Detected (NOT DETECT); Enteropathogenic E. coli-EPEC Not Detected (NOT DETECT); Enterotoxigenic E. coli-ETEC Not Detected (NOT DETECT); Giardia Lamblia Not Detected (NOT DETECT); Norovirus GI/GII Not Detected (NOT DETECT); Plesiomonas Shigelloides Not Detected (NOT DETECT); Rotavirus A Not Detected (NOT DETECT); Salmonella Sp Not Detected (NOT DETECT); Sapovirus Not Detected (NOT DETECT); Shiga Toxin-prod E. coli-STEC Not Detected (NOT DETECT); Shigella/Enteroin E. coli-EIEC Not Detected (NOT DETECT); Vibrio Cholerae Not Detected (NOT DETECT); Vibrio Sp Not Detected (NOT DETECT); Yersinia Enterocolitica Not Detected (NOT DETECT)
--- NOTE | 2021-07-17 18:18 | NUR ---
ASSUMED CARE OF PT AT 0700. PT ALERT AND CONFUSED T/O THE DAY, COOPERATIVE WITH CARE. PT BECOMES VERY SOB AND ANXIOUS WITH ANY MOVEMENT IN BED. PT ENCOURAGED TO DO DEEP BREATHING THROUGH HER NOSE AND THIS SEEMS EFFECTIVE TO CALM HER DOWN AND RELEIVE SOB/ANXIETY. MENTATION OVERALL HAS SEEMED TO IMPROVE OVER THE SHIFT, WITH PT BEING MORE AWAKE AND TALKATIVE. PT HAS HAD 4 LARGE LOOSE DARK GREEN STOOLS T/O SHIFT, GI PANNEL SENT PER PROTOCOL AND IT IS NEGATIVE. PT'S FSBS NOTED TO BE TRENDING UP TODAY, DR PLASCENCIA NOTIFED AND NEW ORDERS RECEIVED FOR INSULIN S/S. DR GRANDA IN TO SEE PT THIS AM, DISCUSSED POSSIBLE HD WITH PT, AND PT IS REFUSING AT THIS TIME. DR GRANDA UPDATED WITH RESULTS OF 1500 LABS, NO NEW ORDERS. GOOD URINE OUTPUT FROM CHRIS CATHETER AND PT'S LUNG SOUNDS HAVE IMPROVED T/O SHIFT, ABLE TO WEAN DOWN 02 NEEDS FROM 4L TO 2L NC. PT HAD A SMALL EPISODE OF A NOSE BLEED THIS AFTERNOON, STOPPED ON ITS OWN, HUMIDIFICATION ADDED TO PT'S O2. NO OTHER S/SX OF BLEEDING NOTED. PT/OT ATTEMPTED TO WORK WITH PT, PT DID NOT WANT TO PARTICIPATE FOR VERY LONG. WILL CONTINUE TO MONITOR AND GIVE REPORT TO ONCOMING NOC SHIFT RN. PT HAS CALL LIGHT IN REACH AND BED ALARM ON FOR SAFETY.
[2021-07-18 06:50] LABS: BASOPHILS ABSOLUTE AUTO 0.02 K/mm3 (0.00-0.23); BASOPHILS PERCENT AUTO 0 % (0-2); EOSINOPHILS ABSOLUTE AUTO 0.16 K/mm3 (0.00-0.68); EOSINOPHILS PERCENT AUTO 2 % (0-6); Hemoglobin 8.1 g/dL (11.5-16.0); IMMATURE GRAN ABSOLUTE AUTO 0.17 K/mm3 (0.00-0.10); IMMATURE GRAN PERCENT AUTO 2 % (0-1); LYMPHOCYTES ABSOLUTE AUTO 1.11 K/mm3 (0.84-5.20); LYMPHOCYTES PERCENT AUTO 14 % (21-46); MONOCYTES ABSOLUTE AUTO 0.73 K/mm3 (0.16-1.47); MONOCYTES PERCENT AUTO 9 % (4-13); Mean Corpuscular HGB 27.6 pg (26.0-34.0); Mean Corpuscular HGB Conc 28.9 g/dL (31.5-36.5); Mean Corpuscular Volume 96 fL (80-100); Mean Platelet Volume 9.7 fL (9.1-12.4); NEUTROPHILS ABSOLUTE AUTO 5.55 K/mm3 (1.96-9.15); NEUTROPHILS PERCENT AUTO 72 % (41-73); Platelet Count 227 K/mm3 (150-400); RDW Coefficient Variation 16.9 % (11.7-14.2); RDW Standard Deviation 58.2 fL (35.1-46.3); Red Blood Cell Count 2.93 M/mm3 (3.80-5.20); White Blood Cell Count 7.74 K/mm3 (4.00-11.30)
[2021-07-18 07:01] LABS: Albumin, Blood 2.7 g/dL (3.4-5.0); Anion Gap 11 mmol/L (6-16); Blood Urea Nitrogen 71 mg/dL (8-24); Bun/Creatinine Ratio 19.2 (12.0-20.0); CO2, Blood 21 mmol/L (21-32); Calcium, Blood 8.5 mg/dL (8.5-10.1); Chloride, Blood 119 mmol/L (98-108); Glomerular Filtration Rate 12 (60-); Glucose, Blood 121 mg/dL (70-99); Magnesium, Blood 2.3 mg/dL (1.6-2.4); Phosphorus, Blood 4.3 mg/dL (2.5-4.9); Potassium, Blood 4.1 mmol/L (3.5-5.5); Sodium, Blood 151 mmol/L (136-145)
--- NOTE | 2021-07-18 19:55 | NUR ---
PT TRANSFERRED FROM PCU 15 AT 1245, BED TO BED SLIDE TX. PT ORIENTED TO ROOM SET UP AND GIVEN CALL LIGHT. VSS, ASSISTED PT WITH LUNCH. HAS CHRIS PATENT, CLEAR YELLOW.
--- NOTE | 2021-07-18 19:56 | NUR ---
SUMMARY- PT A/O X4. BACK IS PAINFUL WITH MOVEMENT AND REFUSED POSITION CHANGES. TOLERATES SMALL AMOUNTS OF MEALS WITH ASSIST, POOR APPETITE. CHRIS DRAINING LIGHT CLEAR. VSS. SATS 96% 3L NC. LUNGS DIM IN BASES. BLOOD SUGARS 100-180'S ALL SHIFT, COVERED WITH SSRI. NO BM THIS SHIFT. HAD 3 TISSUES WITH BLOOD STREAKED NASAL DISCHARGE IN CLEAR STRINGY. IV D5 AT 50,L HR.
--- NOTE | 2021-07-19 06:56 | NUR ---
SHIFT SUMMARY: PATIENT BECOMES VERY SOB WITH T&P AND JENNA CARE. MAINTAINS SATS ABOVE 90% ON 3L NC. PRODUCTIVE COUGH, SPUTUM IS YELLOW WITH BLOOD STEAKS. ONE SMALL BLOODY NOSE THIS SHIFT. IT MADE PATIENT VERY ANXIOUS. IVF INFUSING PER MAR. 2 SMAL LOOSE BM'S BROWN THIS SHIFT.
[2021-07-19 08:31] LABS: BASOPHILS ABSOLUTE AUTO 0.03 K/mm3 (0.00-0.23); BASOPHILS PERCENT AUTO 0 % (0-2); EOSINOPHILS ABSOLUTE AUTO 0.23 K/mm3 (0.00-0.68); EOSINOPHILS PERCENT AUTO 3 % (0-6); Hematocrit 28.6 % (33.0-51.0); Hemoglobin 8.2 g/dL (11.5-16.0); IMMATURE GRAN ABSOLUTE AUTO 0.26 K/mm3 (0.00-0.10); IMMATURE GRAN PERCENT AUTO 3 % (0-1); LYMPHOCYTES ABSOLUTE AUTO 1.14 K/mm3 (0.84-5.20); LYMPHOCYTES PERCENT AUTO 14 % (21-46); MONOCYTES ABSOLUTE AUTO 0.66 K/mm3 (0.16-1.47); MONOCYTES PERCENT AUTO 8 % (4-13); Mean Corpuscular HGB 27.3 pg (26.0-34.0); Mean Corpuscular HGB Conc 28.7 g/dL (31.5-36.5); Mean Corpuscular Volume 95 fL (80-100); Mean Platelet Volume 9.9 fL (9.1-12.4); NEUTROPHILS ABSOLUTE AUTO 5.69 K/mm3 (1.96-9.15); NEUTROPHILS PERCENT AUTO 71 % (41-73); Platelet Count 217 K/mm3 (150-400); RDW Standard Deviation 58.4 fL (35.1-46.3); White Blood Cell Count 8.01 K/mm3 (4.00-11.30)
[2021-07-19 08:45] LABS: Albumin, Blood 2.8 g/dL (3.4-5.0); Anion Gap 10 mmol/L (6-16); Blood Urea Nitrogen 54 mg/dL (8-24); Bun/Creatinine Ratio 16.9 (12.0-20.0); CO2, Blood 20 mmol/L (21-32); Calcium, Blood 9.1 mg/dL (8.5-10.1); Chloride, Blood 118 mmol/L (98-108); Creatinine, Blood 3.19 mg/dL (0.40-1.00); Glomerular Filtration Rate 14 (60-); Glucose, Blood 148 mg/dL (70-99); Magnesium, Blood 2.2 mg/dL (1.6-2.4); Phosphorus, Blood 3.3 mg/dL (2.5-4.9); Sodium, Blood 148 mmol/L (136-145)
--- NOTE | 2021-07-19 16:58 | NUR ---
SHIFT SUMMARY: PATIENT ALERT AND ORIENTED TO SELF. SHE HAS BEEN CONFUSED AND REPEATED STATEMENTS WHEN IN HER ROOM. SHE HAD SHORTNESS OF BREATH AFTER LYING HER DOWN AND CHANGING HER. SHE HAD AN O2 OF 88%. TITRATED UP TO 5 LITERS TO KEEP HER COMFORTABLE. SHE COUGHED UP THICK BARCENAS COLORED, BLOOD STREAKED SPUTUM WHICH HELPED TO INCREASE HER OXYGEN SATURATION. SHE COMPLAINED OF PAIN IN HER BUTTOCKS, HEAD, AND BACK. GAVE HER TYLENOL PER EMAR. SHE HAS OPEN AREAS ON HER RIGHT GLUTEAL CLEFT. COVERED WITH FOAM DRESSING. POWDER PLACED IN HER GROIN. D/C CHRIS CATHETER WITH 350CC OUT OF BAG. BED IN LOWEST POSITION. CALL LIGHT IN REACH. WILL CONTINUE TO MONITOR.
--- NOTE | 2021-07-19 18:10 | NUR ---
REVIEWED ASSESSMENT DOCUMENTATION AND CHART NOTED ENTERED BY MELISA, STUDENT NURSE AND AGREE WITH HER FINDING FOR THIS PATIENT.
--- NOTE | 2021-07-20 03:14 | NUR ---
ANXIOUS/PANIC DURING ROUTINE ATTENDS CHANGE PT GETS VERY DYSPNIC R/T ORTHOPNEA & FORGETING TO BREATH IN THROUGH NOSE NOT MOUTH. NORMALLY CAN ENCOURAGE DEEP BREATHING & REMINDING/REASURRANCE SHE IS BREATHING SINCE TALKING. HOWEVER THIS TIME PT YELLING, SCREAMING "ARE YOU GOING TO HELP ME" "GET THE DR JUAN DIEGO NOT BREATHING" INFORMED PT HER SPO2 @92-93% ON 5L O2 & ENCOURAGE PT TO BREATH. PT STILL HIGHLY ANXIOUS, ATTEMPT TO SWING LEGS & LEANING OOB. SCREAMING "GET ME OUT OF HERE", "HOW MANY PEOPLE HAVE YOU KILLED?" UNABLE TO REDIRECT OR CALM PT. INFORMED DR GUILLORY & HE ORDERED PO ZYPREXA. GAVE MED & WILL MONITOR FOR EFFECTIVENESS.
[2021-07-20 05:00] LABS: Hematocrit 28.5 % (33.0-51.0); Hemoglobin 8.2 g/dL (11.5-16.0)
[2021-07-20 05:33] LABS: Magnesium, Blood 2.3 mg/dL (1.6-2.4)
[2021-07-20 05:34] LABS: Albumin, Blood 2.9 g/dL (3.4-5.0); Anion Gap 6 mmol/L (6-16); Blood Urea Nitrogen 45 mg/dL (8-24); CO2, Blood 22 mmol/L (21-32); Calcium, Blood 8.8 mg/dL (8.5-10.1); Chloride, Blood 118 mmol/L (98-108); Creatinine, Blood 3.01 mg/dL (0.40-1.00); Glomerular Filtration Rate 15 (60-); Glucose, Blood 134 mg/dL (70-99); Phosphorus, Blood 3.5 mg/dL (2.5-4.9); Potassium, Blood 4.2 mmol/L (3.5-5.5); Sodium, Blood 146 mmol/L (136-145)
--- NOTE | 2021-07-20 06:28 | NUR ---
SHIFT SUMMARY AOX2-SELF, PLACE, FOLLOWING DIRECTIONS @BEGINNING OF SHIFT. HAS BECOME MORE CONFUSED, FORGETFUL T/O NIGHT. AOX1-SELF ONLY THIS AM. HIGHLY ANXIOUS ABOUT BREATHING T/O NIGHT. YELLING, SCREAMING ABOUT NOT BREATHING, DIFFICULT TO REDIRECT, IMPULSIVE, TAKING NC OFF, ATTEMPTING TO GET OOB "TO LEAVE" WHEN ANY CARE PERFORMED. INFORMED DR GUILLORY & HE ORDERED PO ZYPREXA, PT HAS BEEN MORE PLEASENT, CALM, COOPERATIVE, REDIRECTABLE SINCE MEDICATION, HOWEVER HAS BECOME MORE CONFUSED/FORGETFUL. VSS. SPO2 >90% ON 5L O2. LS DIM c CRACKLES IN BASES. HAS OCC PRODUCTIVE COUGH c THICK SPUTUM c RED STREAKS OR PINK TINGE. REPORTED NAUSEA/UPSET STOMACH 1X, MEDICATED c ZOFRAN & NO FURTHER DISCOMFORT REPORTED. +1 EDEMA BLE. NO MELENA NOTED THIS SHIFT. LACK OF APPETITE, DID NOT EAT ANY DINNER LAST NIGHT. INCONT OF URINE, ATENDS CHANGED PRN. FINALLY AROUND 0630 THIS AM PT STATES SHE IS "GOING TO BED" HASNT SLEPT ALL NIGHT. CALL LIGHT IN REACH.
--- NOTE | 2021-07-20 08:00 | NUR ---
PT PLEASANT, BUT NEGATIVE. IS UNMOTIVATED. STATES WANTS TO BE LEFT TO SLEEP. TURNS PT/OT AWAY WHEN THEY COME. A/O X 2-3. FORGETFULL ON DETAILS. H/R REG, MURMUR NOTED. NO TELE. LUNGS CLEAR UPPER, DIM BASES. ON 5L 02. HOME IS R/A. BT X4 LAST BM TODAY. VOIDS INCONT. ATTENDS CDI AT THIS TIME. PT STATES CAN TELL US IF SOILS ATTENDS. 2 ASST TO TURN. MAX 2 ASST TO GET TO CHAIR. BED IN LOW POSITION,C ALL LITE IN REACH, CALLS APPROP
--- NOTE | 2021-07-20 15:38 | NUR ---
PT PENDING D.CHARGE. PER JANY D/C PAPER PATTERN FOLDER, SHE MAY NEED TO BE RE-EVAL BY [facility]. ADDITIONAL NOW NEEDS 2L O2 AT REST. PT/OT GOT HER TO CHAIR 2 MAX ASSIST. SHE HAD TO BE ENCOURAGED BY ME SO CAN BE DISCHARGE. VERY UNMOTIVATED. CALL LITE IN REACH CALLS APROP
--- NOTE | 2021-07-20 18:23 | NUR ---
PT SOME DEMANDING TODAY. CONTINUES TO BE NEEDING MUCH ENCOURAGEMENT FOR ANY MOVEMENT. SHE WAS TOLD LOOKING FOR DISCHARGE, BUT APPEARS THE [facility]IV[facility] REFUSING LEVEL OF CARE MAY HAVE INCREASED. DID GET O2 DOWN TO 2L TODAY WITH ASSISTANCE OF RT. DID GET PT UP TO CHAIR WITH 2 ASST WITH PT/OT. GOT BACK TO BED WITH 2 MAX ASSIST. SHE WAS ABLE TO BE UP FOR 1-2 HRS TODAY. HAD B/M TODAY. CARE MANAGEMENT IS WORKING FOR D/C. NO OTHER NEW CONCERNS NOTED. BED IN LOW POSITION, CALL LITE IN REACH, BED ALARM ON FOR SAFETY, CALLS APPROP
[2021-07-21 05:52] LABS: Hematocrit 27.6 % (33.0-51.0); Hemoglobin 7.9 g/dL (11.5-16.0)
[2021-07-21 06:09] LABS: Albumin, Blood 2.7 g/dL (3.4-5.0); Anion Gap 6 mmol/L (6-16); Blood Urea Nitrogen 38 mg/dL (8-24); Bun/Creatinine Ratio 12.9 (12.0-20.0); CO2, Blood 22 mmol/L (21-32); Calcium, Blood 8.6 mg/dL (8.5-10.1); Chloride, Blood 116 mmol/L (98-108); Creatinine, Blood 2.94 mg/dL (0.40-1.00); Glomerular Filtration Rate 16 (60-); Glucose, Blood 115 mg/dL (70-99); Magnesium, Blood 1.9 mg/dL (1.6-2.4); Phosphorus, Blood 3.3 mg/dL (2.5-4.9); Potassium, Blood 4.4 mmol/L (3.5-5.5); Sodium, Blood 144 mmol/L (136-145)
--- NOTE | 2021-07-21 07:33 | NUR ---
SHIFT SUMMARY NO ACUTE CHANGES THIS SHIFT. AOX1. FORGETFUL, CONFUSED. VSS. ABLE TO FOLLOW DIRECTIONS. REFUSES CARE @TIMES, STATES "NO THATS OK, I JUST WANT TO SLEEP." AFTER ENCOURAGEMENT, REMINDING OF IMPORTANCE OF CARE, PT AGREES. DENIES DYSPNEA, N/V TONIGHT. SPO2 >90% ON 2L O2. +2 EDEMA BLE. REPORTS PAIN, DISCOMFORT WHEN BLE TOUCHED DURING ATTENDS CHANGING. CALL LIGHT IN REACH.
--- NOTE | 2021-07-21 17:19 | NUR ---
SHIFT SUMMARY NO ACUTE CHANGES DURING SHIFT. A&O X 1, FORGETFUL, FOLLOWS DIRECTIONS. REFUSES CARE AT TIMES, NEEDS REINFORCEMENT ON CARE PLAN AND REQUIREMENTS FOR DC. PT C/O SOB WITH EXERTION, SPO2 >90 RA. PT OOB TO CHAIR DURING MEALS USING LIFT. CALL LIGHT WITHIN REACH, TABLE AT BEDSIDE. WILL CONTINUE TO MONITOR.
--- NOTE | 2021-07-22 05:31 | NUR ---
SHIFT SUMMARY 81 YR F ADMITTED ON 07/14/21 FOR METABOLIC ENCEPHALOPATHY. FULL CODE. NO ACUTE CHANGES THIS SHIFT. PT C/O PAIN IN HER LEGS AND WAS GIVEN TYLENOL PER EMAR. SHE HAS A LOW MADELINE SCORE AND IS A Q2 TURN. HOWEVER, SHE IS NOT HAPPY ABOUT BEING TURNED AND REFUSED A FEW TIMES. WHEN WE WERE ABLE TO TURN HER SHE C/O THAT WE WERE CAUSING HER PAIN. IT WAS EXPLAINED WHAT WE WERE DOING AND THE REASONING FOR IT.
[2021-07-22 06:54] LABS: Hematocrit 27.4 % (33.0-51.0); Hemoglobin 7.9 g/dL (11.5-16.0)
[2021-07-22 07:12] LABS: Albumin, Blood 2.7 g/dL (3.4-5.0); Anion Gap 7 mmol/L (6-16); Blood Urea Nitrogen 35 mg/dL (8-24); Bun/Creatinine Ratio 11.9 (12.0-20.0); CO2, Blood 21 mmol/L (21-32); Calcium, Blood 8.6 mg/dL (8.5-10.1); Chloride, Blood 118 mmol/L (98-108); Creatinine, Blood 2.95 mg/dL (0.40-1.00); Glomerular Filtration Rate 15 (60-); Glucose, Blood 84 mg/dL (70-99); Magnesium, Blood 2.1 mg/dL (1.6-2.4); Phosphorus, Blood 3.2 mg/dL (2.5-4.9); Potassium, Blood 4.3 mmol/L (3.5-5.5); Sodium, Blood 146 mmol/L (136-145)
--- NOTE | 2021-07-22 12:15 | NUR ---
ATTEMPTED TO GET PT OOB. EXPLAINED TO PT IMPORTANCE OF GETTING OOB TO IMPROVE AND BE ABLE TO LEAVE HOSPITAL. PT NOT AWARE OF WHERE SHE IS WHEN ASKED. PT VERY ADAMENT ABOUT NOT GETTING UP. YELLING SHE WANTED TO BE LEFT ALONE AND THAT SHE DOESN'T FEEL VERY GOOD AND SHE WANTS TO BE LEFT ALONE AND GET OUT OF THE ROOM. REPORTED THE SAME THING THIS MORNING WHEN ATTEMPTING TO GET HER UP FOR BREAKFAST. COMPROMISED WITH PT THIS MORNING ABOUT NOT GETTING UP IF SHE WOULD EAT SOME OF HER BREAKFAST DUE TO CHEMBG BEING LOW. ENDED UP NEEDING TO HAND HER THE FOOD AND INSISTING SHE TAKE BITES FOR HER BLOOD GLUCOSE. ATE A FEW BITES OF EACH ITEM ON BREAKFAST TRAY AND DRINKING SUPPLEMENT.
--- NOTE | 2021-07-22 12:16 | NUR ---
TRIED TO GET PT UP FOR LUNCH WITH LIFT. PT REFUSED TO EAT AND TO GET UP, WITH NURSE AND RN TRANSPORT IN ROOM. PT STARTED TO HIT AT RN WHEN ASKED NUMEROUS TIMES TO COMPLY WITH GETTING IN THE LIFT FOR LUNCH. NURSE LET PT KNOW WE WOULD COME BACK INTO ROOM AT 1300 AND TRY AGAIN.
--- NOTE | 2021-07-22 17:51 | NUR ---
SHIFT SUMMARY NO ACUTE CHANGES DURING SHIFT. PATIENT REFUSING MORE ACITIVITES DURING SHIFT. REFUSING TRANSITION TO CHAIR, REFUSING MEALS, AND REPOSITIONING. PATIENT MEDICATED WITH PRN TYLENOL DURING SHIFT. PICC LINE DRESSING CHANGED. [employer] CAME TO SEE PATIENT, STATED THEY WOULD DISCUSS TRANSITION PLAN WITH COUNSELOR MARRIAGE AND FAMILY.
--- NOTE | 2021-07-23 04:50 | NUR ---
SHIFT SUMMARY 81 YR F ADMITTED ON 07/14/21 FOR AMS, LOW BP, AND MELENA. FULL CODE. PT HAS BECOME MORE WITHDRAWN FROM CARE THIS SHIFT. SHE WOULD NOT ALLOW Q2 TURNS AND ONLY AGREED TO BE TURNED TWICE THIS SHIFT. IT WAS EXPLAINED TO HER THE REASONING FOR FREQUENT TURNS, TO PREVENT PRESSURE ULCERS, BUT SHE STILL DID NOT WANT TO. SHE STATED SHE DID NOT FEEL WELL FOR MOST OF THIS SHIFT AND SHE SLEPT VERY LITTLE. SHE WAS HEAVY ON THE CALL LIGHT BUT WHEN ATTENDED TO DID NOT USUALLY HAVE ANY IMMEDIATE NEEDS. SHE PULLED HER PICC LINE OUT AND STATED THAT IT "JUST CAME OUT". THERE WAS NO BLEEDING FROM IT AND IT WAS WRAPPED IN [place].
[2021-07-23 05:13] LABS: Hematocrit 30.7 % (33.0-51.0)
[2021-07-23 05:31] LABS: Anion Gap 9 mmol/L (6-16); Blood Urea Nitrogen 33 mg/dL (8-24); Bun/Creatinine Ratio 12.3 (12.0-20.0); CO2, Blood 20 mmol/L (21-32); Calcium, Blood 9.1 mg/dL (8.5-10.1); Chloride, Blood 118 mmol/L (98-108); Creatinine, Blood 2.69 mg/dL (0.40-1.00); Glomerular Filtration Rate 17 (60-); Glucose, Blood 113 mg/dL (70-99); Magnesium, Blood 2.3 mg/dL (1.6-2.4); Phosphorus, Blood 3.1 mg/dL (2.5-4.9); Potassium, Blood 4.2 mmol/L (3.5-5.5); Sodium, Blood 147 mmol/L (136-145)
--- NOTE | 2021-07-23 15:22 | NUR ---
I had a conversation with pt's grandson Antonio yesterday regarding pt's code status. He said he didn't agree with her Full Code status, but he continues to support her decision. Today, I was able to have a conversation with the pt. She commented she was tired throughout our conversation. Per bedside RN, pt has continued to sleep intermittently daily, and declining to work with therapy. Pt was able to tell me she was at the hospital, and knew she was in [place]. I asked about her code status directly this time, and she stated she does in fact, want to remain a "full code". When I explained in depth what it entails, she then asked if she could think about it for a day, and I state "of course". I reviewed pt's H and P. She has been working with Dr. Moss for some time, and has no issues with this, but has stated many times she would not want dialysis if it became necessary. I gently reminded pt that if she doesn't begin working with therapy, and remains in bed through both the day and night, she will beome increasingly bed-bound, and will continue to require a lift for transferring. She states she knows, but then asks, "I don't want to talk about it anymore today". Unsure of her overall mentation at this point, as she does wish to continue with full code status, yet she also does not seem interested in actively participating in her care, but doesn't state any meanful way. Palliative care will remain available.
--- NOTE | 2021-07-23 17:21 | NUR ---
SHIFT SUMMARY PT CONFUSED, REFUSING SERVICES DURING SHIFT. PALLIATIVE CARE TO SEE PATIENT, PLANS TO TALK TO FAMILY TOMORROW REGARDING PATIENTS CODE STATUS AND PLAN OF CARE. NO ACUTE CHANGES DURING SHIFT.
[2021-07-24 04:57] LABS: Hematocrit 30.8 % (33.0-51.0); Hemoglobin 8.8 g/dL (11.5-16.0)
[2021-07-24 05:13] LABS: Albumin, Blood 2.8 g/dL (3.4-5.0); Anion Gap 8 mmol/L (6-16); Blood Urea Nitrogen 31 mg/dL (8-24); Bun/Creatinine Ratio 12.2 (12.0-20.0); CO2, Blood 20 mmol/L (21-32); Calcium, Blood 8.7 mg/dL (8.5-10.1); Chloride, Blood 119 mmol/L (98-108); Creatinine, Blood 2.54 mg/dL (0.40-1.00); Glomerular Filtration Rate 18 (60-); Glucose, Blood 119 mg/dL (70-99); Magnesium, Blood 2.3 mg/dL (1.6-2.4); Phosphorus, Blood 3.2 mg/dL (2.5-4.9); Potassium, Blood 4.6 mmol/L (3.5-5.5); Sodium, Blood 147 mmol/L (136-145)
--- NOTE | 2021-07-24 06:19 | NUR ---
SHIFT SUMMARY 81 YR F ADMITTED ON 07/14/21 FOR AMS, LOW BP, AND MELENA. FULL CODE. NO ACUTE CHANGES THIS SHIFT. PT SEEMED TO HAVE A BETTER NIGHT THIS SHIFT SHE WAS NOT ON THE CALL LIGHT NEARLY HEAVY THE LAST FEW DAYS. SHE APPEARS TO HAVE GOTTEN SOME SLEEP. THIS AM SHE IS COMPLANING OF TRYING TO CATCH HER BREATH AND AGAIN WHEN I ASKED IF SHE WANTED RT TO COME SHE STATED THAT SHE DID NOT. THEY WERE CALLED ANYWAY BUT OF NOW THEY HAVE NOT ARRIVED. PT STATES SHE IS HOPEFUL THAT SHE WILL GO HOME TO TODAY. SHE HAD A CONSULT W/ PALLITIVE CARE YESTERDAY.
--- NOTE | 2021-07-24 18:37 | NUR ---
SHIFT SUMMARY- PT ALERT AND ORIENTED TO SELF, SHE SEEMS TO HAVE VERY POR INSIGHT INTO HER SITUATION. THE PT OFTEN DECLINES CARE AND MEDICATIONS. PT WAS VERY SLEEPY THIS MORNING AND REFUSED TO WAKE TO TAKE HER MORNING PROBIOTIC. PT IS A Q2 TURN AND TRIED TO REFUSE EVERY REPOSITION STAFF OFFERED. SPOKE TO HER ABOUT THE IMPORTANCE OF THE REPOSITION AND THE PT ALLOWED STAFF TO REPOSITION HER EVERY OTHER 2 HOURS (EVERY 4 HOURS). PT IS INCONTINENT OF BOWEL AND BLADDER SHE ALSO DECLINED TO BE CHANGED. AGAIN STAFF SPOKE TO HER ABOUT THE DAMAGE URINE CAN CAUSE IF LEFT ON THE SKIN AND SHE ALLOWED STAFF TO CHANGE HER. PT IS A LIFT PT AND WAS TRANSFERED FROM ROOM 310 TO ROOM 311 FOR THE CIELING LIFT. WILL ATTEMPT TO GET THE PT UP TO A RECLINER TOMORROW FOR MEALS. TODAY PT REFUSED ALL MEALS AND CHOSE TO SLEEP. PT WOKE TWICE TO PANICKED FEELING OF SOB. EACH TIME SATS WERE MID 90'S AND IT PASSED WITH MERELY RAISING THE HOB. T STILL ON ROM AIR AT THIS TIME. WILL CTM AND PASS ON TO NIGHT RN IN BEDSIDE REPORT. PT HAS MEPILEX ON BILATERAL HEELS FOR PREVENTION THOSE WERE CHANGED TODAY THEY WERE 4 DAYS OLD SKIN C/D/I UNDERNEATH.
--- NOTE | 2021-07-25 07:25 | NUR ---
ASSUMED CARE OF PT- PT IS REFUSING CARE, SHE IS REFUSING LAB DRAWS. PT C/O NOT FEELING WELL, ATTEMPTED TO CHECK HER BLOOD SUGAR AND THE PT ADIMANTLY REFUSED TUCKING HER HANDS INTO HER ARMPITS AND SHAKING HER HEAD NO. THE PT SAID "I'LL BE OK, I'M JUST GONNA GO TO SLEEP."
--- NOTE | 2021-07-25 07:28 | NUR ---
OVERNIGHT PT CONTINUED TO BE ANXIOUS AND RESISTING CARE. PT DID NOT WANT TO BE TURNED Q2H HOWEVER STAFF DID THE BEST TO TRY TO GET PT TO COMPLY. PT ALSO C/O FEELING SOB HOWEVER SATURATIONS WERE 94-95% ON RA. PT GIVEN ZYPREXA AND ABLE TO SLEEP A LITTLE. PT THIS MORNING REFUSED MORNING LABS, LAB CAME TO FLOOR TWICE AND PT EDUCATED ON NEED HOWEVER CONTINUED TO STRONGLY REFUSED. PT ALSO REFUSED HER PROTONIX STATING "I DON'T NEED THAT."
[2021-07-25 08:50] LABS: Hematocrit 30.9 % (33.0-51.0)
[2021-07-25 09:22] LABS: Albumin, Blood 2.9 g/dL (3.4-5.0); Anion Gap 9 mmol/L (6-16); Blood Urea Nitrogen 31 mg/dL (8-24); Bun/Creatinine Ratio 13.5 (12.0-20.0); CO2, Blood 18 mmol/L (21-32); Calcium, Blood 8.6 mg/dL (8.5-10.1); Chloride, Blood 118 mmol/L (98-108); Creatinine, Blood 2.29 mg/dL (0.40-1.00); Glomerular Filtration Rate 21 (60-); Glucose, Blood 166 mg/dL (70-99); Magnesium, Blood 2.1 mg/dL (1.6-2.4); Phosphorus, Blood 2.1 mg/dL (2.5-4.9); Potassium, Blood 4.5 mmol/L (3.5-5.5); Sodium, Blood 145 mmol/L (136-145)
--- NOTE | 2021-07-25 11:39 | NUR ---
CALLED DR GRANDA- PT HAS BEEN DECLINING CARE, SHE DECLINED BG CHECK THIS MORNING. PT HAS NO IV ACCESS SHE REMOVED HER OWN PICC LINE PREVIOUSLY. NEW ORDER RECIEVED FOR IV SOD PHOSPHATE. CALLED DR GRANDA THERE IS NO WAY THE PT WILL ALLOW STAFF TO PLACE ANOTHER IV. RECIEVED AN ORDER FOR PO NUTRA-PHOS 1PKT DAILY FOR 2 DAYS. DC'D IV DOSE OF SODIUM PHOS.
--- NOTE | 2021-07-25 18:35 | NUR ---
SHIFT SUMMARY- PT HAS CONTINUED TO DECLINE CERTAIN ASPECTS OF CARE. SHE DECLINED EVENING VITALS SO STAFF LEFT AND TRIED AGAIN LATER AND WERE ABLE TO OBTAIN VITALS. PT DECLINED MORNING BG BUT WAS WILLING AT LUNCH AND THEN THIS EVENING SHE REFUSED AGAIN. PT HAD ONE EPISODE OF C/O SHORTNESS OF BREATH BUT SHE REFUSED TO LET STAFF REPOSITION HER AT THAT TIME. STAFF RAISED THE HOB, PT SATS HAVE BEEN MID 90'S EACH TIME THEY WERE CHECKED. PT HAS ATTEMPTED TO SLEEP T/O THE DAY, AT ONE POINT SHE SEEMED SHE MIGHT BE ABLE TO GET UP AND INTO THE SHOWER, BUT WHEN THE TIME CAME SHE REFUSED. PT HAS A PRODUCTIVE COUGH AND SPITS IN A TISSUE. PT DOES NOT USE THE CALL LIGHT WHEN SHE NEEDS OR WANTS ANYTHING SHE JUST CALLS OUT. PT USES THE CALL LIGHT FREQUENTLY WHEN SHE IS TRYING TO CONTROL THE TV. PT CURRENTLY LYING IN BED, CALL LIGHT IN REACH NO S&S OF DISTRESS NOTED WILL CTM AND PASS ON TO NIGHT RN IN BEDSIDE REPORT.
--- NOTE | 2021-07-26 04:32 | NUR ---
PT ALERT AND ORIENTED TO SELF AND PLACE. PTS CONFUSION WAXES AND WANES. SHE IS EASILY FORGETFUL. PT REFUSED BED TIME BLOOD GLUCOSE CHECK. AIR CONDITIONING SPECIALIST AND RN ATTEMPTED TO EDUCATE LISANDRA TO WHY IT WAS IMPORTANT FOR HER TO ALLOW US TO CHECK HOWEVER SHE WAS NOT INTERESTED AT ALL AND WOULD REPEATEDLY STATE "I DON'T LIKE IT." SHE WAS NOT RECEPTIVE TO HEAR ANY EXPLANATIONS AND WAS ADAMANT ABOUT NOT LETTING US CHECK. JORDAN BUSINESS PROFESSOR NOTIFIED AND LANTUS NOT GIVEN. PT C/O OF BILAT FOOT PAIN AND WILLING TO TAKE TYLENOL. MEDICATION GIVEN IN APPLE SAUCE AND PT DRANK 1 APPLE JUICE. PT LATER REQUESTING MILK AND GIVEN. PATIENT HAD EPISODE IN WHICH SHE ACTUALLY ASSISTED STAFF IN TURNING. PT EXPRESSED THAT SHE DOES NOT WANT US TO CONSTANTLY TELL HER WHAT TO DO. EXPLAINED TO PT THAT IS WE ARE DOING EVERYTHING TO HELP HER GET BETTER HOWEVER IF THOSE ARE NOT HER WISHES SHE NEEDS TO RELY THIS TO AMELIA WHO PER THE CHART IS THE PERSON TO NOTIFY. PT STATED THAT AMELIA DOES NOT MAKE DECISIONS FOR HER SO ITS NOT UP TO HIM. EXPLANED TO PT THAT SHE NEEDS TO SPEAK WITH WHOMEVER IS WHO DOES MAKES TO WHICH PT STATED "I DO." EXPLAINED THAT HER GOALS OF CARE NEED TO CHANGE IN ORDER FOR US TO NOT BE CONSTANTLY ENCOURAGING PT TO COMPLY WITH CARE WE ARE NOT TRYING TO FORCE HER TO DO ANYTING SHE DOES NOT WANT TO. TO THIS PT SWANG ARMS UP IN AIR AND STATED "OKAY I WILL SPEAK WITH THE DOCTOR IN THE MORNING."
--- NOTE | 2021-07-26 08:29 | NUR ---
SPOKE TO DR RICHARDS- ON MORNING ROUNDS. PT IS OFTEN REFUSING FINGER STICK BG. ORDER CHANGED TO BID FROM AC/HS AND HUMALOG WAS DC'D. BG HAS BEEN STABLE BETWEEN 100-130 FOR THE PAST THREE DAYS.
[2021-07-26 10:47] LABS: Hematocrit 32.4 % (33.0-51.0); Hemoglobin 9.5 g/dL (11.5-16.0)
[2021-07-26 11:09] LABS: Albumin, Blood 2.9 g/dL (3.4-5.0); Anion Gap 8 mmol/L (6-16); Blood Urea Nitrogen 34 mg/dL (8-24); Bun/Creatinine Ratio 14.5 (12.0-20.0); CO2, Blood 19 mmol/L (21-32); Chloride, Blood 118 mmol/L (98-108); Creatinine, Blood 2.35 mg/dL (0.40-1.00); Glomerular Filtration Rate 20 (60-); Glucose, Blood 125 mg/dL (70-99); Magnesium, Blood 2.1 mg/dL (1.6-2.4); Phosphorus, Blood 3.2 mg/dL (2.5-4.9); Sodium, Blood 145 mmol/L (136-145)
--- NOTE | 2021-07-26 17:22 | NUR ---
SHIFT SUMMARY- PT ALERT AND ORIENTED TO SELF, 2P ASSIST FOR ROLL AND CHANGES. PT RECIEVED A FULL BED BATH AND LINNEN CHANGE TODAY. GROIN FOLDS APPEAR TO HAVE IMPROVED A BIT OVER THE PAST SEVERAL DAYS. NO ACUTE CHANGES T/O THE SHIFT TODAY. PT HAS CONTINUED TO DECLINE CARE AND MEDS OFF AND ON. PT WILL IMMEDIATELY DECLINE ANYTHING STAFF ARE OFFERING, STAFF SHOULD KEEP THIS IN MIND WHEN GOING TO ASSIST THE PT. SHE MAY BE ACCEPING OF THE CARE BUT REFUSAL IS HER FIRST REACTION. PT IN BED CALL LIGHT IN REACH GRANDDAUGHTER AT THE BEDSIDE NO S&S OF DISTRESS, WILL CTM.
--- NOTE | 2021-07-27 04:15 | NUR ---
PATIENT ALERT TO SELF AND PLACE. FORGETFUL AND CONFUSED. THIS SHIFT PT ATTITUDE WAS MUCH IMPROVED. SHE CONTINUES TO RESIST CARE HOWEVER ENDORSED IN REPORT THAT PT DOES BETTER WHEN YOU DO THINGS FIRST INSTEAD OF ASKING. IF GIVEN AN OPTION SHE WILL IMMEDIATELY TELL YOU NO EVEN THOUGH ONCE THINGS ARE BEING DONE SHE HELPS AND IS COOPERATIVE. PT CONTINUES WITH PRODUCTIVE COUGH. INCONTINENT OF URINE AND STOOL AND IS NOT ABLE TO TELL WHEN SHE IS SOILED.
--- NOTE | 2021-07-27 09:00 | NUR ---
PT STILL REFUSING CARE AND MEDICATIONS. CHECKED AND CHANGED ATTENDS.
--- NOTE | 2021-07-27 10:38 | NUR ---
LAB CAME BY TO DRAW PATIENT FOR THE 3RD TIME TODAY AND PATIENT CONTINUES TO REFUSE. LABS CANCELLED FOR NOW UNTIL PATIENT IS WILLING TO HAVE THEM DRAWN.
--- NOTE | 2021-07-27 14:34 | NUR ---
CHECKED AND CHANGED ATTENDS. PATIENT AGREED TO DRINK AN ENSURE. SHE REFUSED BREAKFAST AND LUNCH.
--- NOTE | 2021-07-27 18:17 | NUR ---
SHIFT SUMMARY: PT ALERT AND ORIENTED TO SELF. SHE HAS REFUSED TO EAT ALL MEALS BUT DID DRINK 100% OF AN ENSURE TODAY. SHE HAS BEEN SLEEPING THE MAJORITY OF THE SHIFT AND REFUSES ALL CARE AND MEDICATIONS. SHE HAS SORES ON HER BOTTOM AND RED AREAS UNDER HER FOLDS. MEDICATED WITH POWDER. SHE HAS HAD THREE INCONTINENT VOIDS DURING THE SHIFT. CALL LIGHT IN REACH. BED IN LOWEST POSITION. WILL CONTINUE TO MONITOR UNTIL THE END OF THE SHIFT.
--- NOTE | 2021-07-27 18:36 | NUR ---
REVIEWED NOTES AND ASSESSMENT DOCUMENTATION RECORDED BY MELISA, STUDENT NURSE AND I AGREE WITH HER CHARTING ON THIS PATIENT.
--- NOTE | 2021-07-28 06:43 | NUR ---
PT ALERT TO SELF AND PLACE. CONFUSED AND FORGETFUL. LANTUS HELD PER DR. ESPINOZA DUE TO BG 143. PT STAYS UP LATE PAST 2 AM AND STATES THAT SHE IS A NIGHT OWL AND TYPICALLY GOES TO BED LATE. REFUSED LABS THIS MORNING AND LAB ASKED TO COME BACK AFTER BREAKFAST. TURNED Q2H TO BEST OF STAFF AVAILABILITY. THIS MORNING WILL CHANGING PT SHE WAS NOTED TO BE IN BETTER SPIRITS AND JOKING WITH STAFF. PT WITH NO NEW CONCERNS/COMPLAINS THIS SHIFT.
[2021-07-28 10:42] LABS: Hematocrit 33.4 % (33.0-51.0); Hemoglobin 9.7 g/dL (11.5-16.0)
[2021-07-28 11:07] LABS: Albumin, Blood 2.8 g/dL (3.4-5.0); Anion Gap 9 mmol/L (6-16); Blood Urea Nitrogen 36 mg/dL (8-24); Bun/Creatinine Ratio 16.8 (12.0-20.0); CO2, Blood 18 mmol/L (21-32); Calcium, Blood 8.8 mg/dL (8.5-10.1); Chloride, Blood 117 mmol/L (98-108); Creatinine, Blood 2.14 mg/dL (0.40-1.00); Glomerular Filtration Rate 23 (60-); Glucose, Blood 178 mg/dL (70-99); Magnesium, Blood 1.9 mg/dL (1.6-2.4); Potassium, Blood 4.6 mmol/L (3.5-5.5); Sodium, Blood 144 mmol/L (136-145)
--- NOTE | 2021-07-28 16:16 | NUR ---
SHIFT SUMMARY: PATIENT ALERT AND ORIENTED TO SELF. SHE HAS BEEN VERY CONFUSED AND FORGETS THE CARE PROVIDED TO HER. SHE IS STILL REFUSING CARE AND FOOD. SHE HAS HAD TWO MEDIUM BOWEL MOVEMENTS TODAY. ATTENDS CHANGED PRN WITH POWDER AND CREAM TO FOLDS. SHE HAS BEEN ASLEEP MOST OF THE DAY AND IS ANXIOUS, CONFUSED, AND IRRITABLE WHEN WOKEN. WILL CONTINUE TO OFFER AND PROVIDE CARE NEEDED. BED IN LOWEST POSITION. CALL LIGHT IN REACH.
--- NOTE | 2021-07-28 17:46 | NUR ---
REVIEWED NOTES AND ASSESSMENTS DOCUMENTED BY MELISA, STUDENT NURSE AND I AGREE WITH HER CHARTINGON THIS PATIENT.
--- NOTE | 2021-07-28 17:54 | NUR ---
Spoke with pt's granddaughter Jeanne this evening. She is working with [employer] to assist her grandma in medicaid approval. We discussed pt's code status, and she explains that she is afraid to change code status from Full Code to DNR while going thru the process, as she does not want them to think she is up to any "funny business". She is agreeable to revisit this at a later date, as pt has dementia and is unable to make decisions on her own.
--- NOTE | 2021-07-29 05:39 | NUR ---
PT ALERT TO SELF AND PLACE. FORGETFUL AND CONFUSED. CONTINUES TO REFUSE CARE AT TIMES AND CAN BE VERY RUDE. SLEPT AROUND MIDNIGHT. PT EDUCATED CONSTANTLY HOWEVER DUE TO DEMENTIA PT FORGETS. TURNED Q2H TO BEST OF STAFF AVAILABILITY. PT REMAINS INCONTINENT OF BOTH URINE AND STOOL.
--- NOTE | 2021-07-29 15:40 | NUR ---
SHIFT SUMMARY: PATIENT ALERT AND ORIENTED TO SELF. SHE IS FAILURE TO THRIVE AND REFUSES FOOD AND MOST MEDICATIONS. SHE HAS BEEN SLEEP THE MAJORITY OF THE DAY AND IS ANXIOUS AND IRRITABLE WHEN WOKEN. SHE REFUSED HER VITALS AND BLOOD SUGAR CHECK THIS MORNING. REMAINS INCONTINENT WITH DIARRHEA THIS MORNING. BED IN LOWEST POSITION. CALL LIGHT IN REACH.
--- NOTE | 2021-07-29 18:01 | NUR ---
REVIEWED NOTES AND ASSESSMENTS CHARTED BY MELISA, STUDENT NURSE AND AGREE WITH HER DOCUMENTATION FOR THIS PATIENT.
--- NOTE | 2021-07-30 06:47 | NUR ---
SHIFT SUMMARY PATIENT ALERT AND ORIENTED X2. MEDICATED PER EMAR FOR PAIN. HAD NO COMPLAINTS OF SHORTNESS OF BREATH. NO ACUTE ISSUES NOTED OVERNIGHT. CALL LIGHT WITHIN REACH. REPORT GIVEN TO ONCOMING RN.
--- NOTE | 2021-07-30 09:12 | NUR ---
PATIENT REFUSED MORNING 0730 CBG TEST. PATIENT SAID "NO THANK YOU, LATER PLEASE". THIS RN CAME BACK AT 9:10 TO RECHECK, PATIENT REFUSED AGAIN. PATIENT REFUSED MORNING MEDICATIONS, WILL RECHECK LATER.
--- NOTE | 2021-07-30 10:11 | NUR ---
NURSE NOTE. PATIENT REFUSED MORNING MEDICATIONS A SECOND TIME.
--- NOTE | 2021-07-30 16:32 | NUR ---
SHIFT SUMMARY. PATIENT IS ALERT AND ORIENTED TO SELF. PATIENT HAS BEEN TURNED OFTEN PATIENT ALLOWS. PATIENT HAS REFUSED MORNING VITAL CHECK AND REFUSED ALL MEDICATIONS TODAY. PATIENT REFUSED ALL MEALS. BED IN LOCKED POSITION. CALL LIGHT IN PLACE. AFTERNOON VITALS REVIEWED. PATIENT REFUSED LAB DRAWS AND PT AND OT. BED IN LOCKED AND LOWEST POSITION. CALL LIGHT IN PLACE. WILL MONITOR UNTIL SHIFT CHANGE.
--- NOTE | 2021-07-31 04:08 | NUR ---
SHIFT SUMMARY: PT IS A/OX3-4. SHE CONTINUES TO REFUSE SOME CARE/MEDS. SHE DID NOT GET OOB THIS SHIFT; SHE WAS TURNED FREQUENTLY D/T IMMOBILITY; SHE WILL HELP TURN THOUGH. SHE TENDS TO GET IRRITABLE WHEN DOING CARE. HER CALL LIGHT IS WITHIN REACH AND WE'LL CONTINUE TO MONITOR.
--- NOTE | 2021-07-31 16:47 | NUR ---
SHIFT SUMMARY PATIENT DENIES PAIN, NAUSEA, AND SHORTNESS OF BREATH. PATIENT IS A LIFT FOR TRANSFERS AND 2PERSON FOR REPOSITIONING. PATIENT REFUSED ALL MEDICATIONS THIS MORNING. DR. GUILLORY NOTIFIED. PATIENT SLEPT MOST OF SHIFT. PATIENT DOES REFUSE MOST CARE, LIKE REPOSITIONING AND PERSONAL CARE. PATIENT HAS VERY POOR PO INTAKE. PATIENT DID DRINK ENSURE FOR BREAKFAST. PATIENT DID NOT EAT OR DRINK ANY LUNCH. PATIENT IS MOSTLY PLEASANT.
--- NOTE | 2021-08-01 04:26 | NUR ---
SHIFT SUMMARY: PT IS A/OX3. SHE SLEEPS QUITE A LOT, BUT IS EASILY AROSABLE. SHE CONTINUES TO REFUSE MOST CARE AND ALL HER MEDS THIS SHIFT. SHE HAS BEEN EDUCATED BY MULTIPLE RNs ABOUT THE IMPORATANCE OF HER SCHEDULED MEDS. SHE DID DRINK SOME FLUIDS THIS SHIFT, BUT DID NOT EAT OR REQUEST ANY FOOD/SNACKS. NO OTHER CHANGES TO REPORT AND WE'LL CONTINUE TO MONITOR.
--- NOTE | 2021-08-01 17:27 | NUR ---
SHIFT SUMMARY PATIENT DENIES PAIN AND SHORTNESS OF BREATH. PATIENT REPORTED NAUSEA AFTER LUNCH, OFFERED MEDICATION, PATIENT REFUSED. OFFERED CRACKERS AND SPRITE, PATIENT ACCEPTED, BUT DID NOT EAT/DRINK MUCH. PATIENT IS A LIFT FOR TRANSFERS AND 2P TO REPOSITION. PATIENT HAS VERY POOR PO INTAKE, BUT WILL DRINK ENSURE. PATIENT IS MOSTLY PLEASANT. PATIENT REFUSED MEDICTIONS THIS MORNING. PATIENT ALSO REFUSED TO HAVE CBG CHECKED. PATIENT WAS COOPERATIVE WITH PERSONAL CARE THIS SHIFT.
--- NOTE | 2021-08-02 05:11 | NUR ---
SHIFT SUMMARY: THIS PT HAS BEEN A BIT MORE COOPERATIVE WITH CARE THIS SHIFT. SHE DID REFUSE ALL ORAL MEDS, BUT DID ALLOW THE RN TO ADMINISTER HER INSULIN. SHE WILL AGREE TO OTHER CARE, BUT GETS IRRITABLE AT TIMES. WE WILL CONTINUE TO MONTIOR THE REMAINDER OF THE SHIFT.
--- NOTE | 2021-08-02 17:32 | NUR ---
SHIFT SUMMARY PATIENT DENIES PAIN, NAUSEA, AND SHORTNESS OF BREATH. PATIENT IS A LIFT FOR TRANSFERS. PATIENT IS A 2P ASSIST TO REPOSITION. PATIENT REFUSED ALL MEDICATIONS THIS MORNING. PATIENT ALSO REFUSED ALL MEALS. PATIENT DID DRINK ONE ENSURE TODAY. PATIENT SLEPT MOST OF DAY. PATIENT REFUSED MULTIPLE OFFERS TO GET UP IN A CHAIR. PATIENT WAS COOPERATIVE WITH PERSONAL CARE THIS SHIFT.
--- NOTE | 2021-08-03 06:17 | NUR ---
SHIFT SUMMARY: NO SIGNIFICANT EVENTS ON NOC. SLEPT WELL THROUGH THE NIGHT. ALLOWED CBG TO BE TAKEN AND INSULIN ADMINISTRATION. ACCEPTED REMERON BUT REFUSED ANYTHING THAT REQUIRED HER TO "SIT UP AND TAKE MEDS" " I DON'T WANT TO SWALLOW ANYTHING" OFFERED TO CRUSH MEDS AND PLACE IN APPLESAUCE PATIENT STATED "I'D NEED TO SWLLOW THE APPLE SAUCE RIGHT? THE ANSWER IS NO" SEE SHIFT ASSESSMENT FOR FURTHER DETAILS.
--- NOTE | 2021-08-03 18:32 | NUR ---
SHIFT SUMMARY PT RESTING QUIETLY AT START OF SHIFT. PT REFUSING MOST CARE OFFERED. DR GUILLORY UPDATED ON PT'S REFUSAL. PT NOT EATING MUCH, DRINKING SOME ENSURES. INCONTINENT OF BOWEL AND BLADDER. BED BATH GIVEN TODAY. PT ASSITED TO CHAIR FOR SEVERAL HOURS VIA LIFT. SITTING UP WITH DINNER AT THIS TIME. CALL LT IN REACH.
--- NOTE | 2021-08-04 03:26 | NUR ---
SHIFT SUMMARY: PATIENT REMAINS CONFUSED ALERT TO SELF ONLY. CALLED OUT A FEW TIMES ON NOC. WAS COMPLIANT WITH ASSESSMENT, VITALS, CBG, AND MEDICATION ADMINISTRATION. SHE HAD DIFFICULTY SLEEPING. VERY SHORT INVERALS OF SPOARDIC SLEEP. EDEMA IMPROVING. SEE SHIFT ASSESSMENT FOR FURTHER DETAILS.
--- NOTE | 2021-08-04 17:18 | NUR ---
SHIFT SUMMARY PT SLEEPING, RESTING QUIETLY AT START OF SHIFT. PT NOT WANTING TO WAKE UP AND EAT BREAKFAST. PT LATER WOKE AROUND 10:00 TO BE CHANGED FOR INCONTINENCE. PT THEN ASSISTED TO RECLINER FOR BREAKFAST. PT ENCOURAGED TO REMAIN IN CHAIR UNTIL AFTER LUNCH. PT A LITTLE MORE CO-OP WITH CARE TODAY, THAN YESTERDAY. PT EATING A LITTLE MORE WELL, SITTING UP EATING DINNER AT THIS TIME. NO S/SX OF DISTRESS NOTED OR REPORTED. DENIES FURTHER NEEDS AT THIS TIME. CALL LT IN REACH.
--- NOTE | 2021-08-05 04:36 | NUR ---
SHIFT SUMMARY NO ACUTE CHANGES TO PT CONDITION. PT SLEEPING MOST OF THE SHIFT. PT IS A SOUND SLEEPER AND IS DIFFICULT TO AWAKEN FOR MEDICATIONS. PT HAS CALL LIGHT WITHIN REACH.
--- NOTE | 2021-08-05 15:22 | NUR ---
AOX2-3, 2-PERSON ASST FOR REPOSITIONING AND LIFT FOR TRANSFERS. CAN MAKE SOME NEEDS KNOWN, COOPERATIVE WITH PERSONAL CARE TODAY. PT IS A DEEP SLEEPER, WOULD NOT WAKE FOR AM MEDICATION AND REFUSED LATER IN THE DAY. PT WAS IN THE RECLINER FOR BREAKFAST AND ENCOURAGED TO REMAIN IN CHAIR UNITL LUNCH, BUT DEMANDED TO BE RETURNED TO BED. PT HAS BEEN SLEEPING FOR MOST OF THE DAY. PT EATS VERY LITTLE, A FEW APPLE SLICES AND PART OF AN ENSURE DRINK. CURRENTLY DENIES PAIN. NO ACUTE CHANGES. CALL-LIGHT IN REACH; BED IN LOWEST POSITION.
--- NOTE | 2021-08-06 05:13 | NUR ---
SHIFT SUMMARY NO ACUTE CHANGES TO PT CONDITION. PT COMPLAINED OF BACK AND BOTTOM PAIN. PT REPOSITIONED SEVERAL TIMES TO HER SATISFACTION. PT REFUSES MOST MEDICATIONS. PT WAS MEDICATED FOR HER ELEVATED BLOOD SUGAR PER EMAR AT BEDTIME. CALL LIGHT IS WITHIN HER REACH.
--- NOTE | 2021-08-06 19:29 | NUR ---
SHIFT SUMMARY: PT A/O X 2. PT WITHDRAWN THROUGHOUT SHIFT. PT WOULD AWAKE TO VERBAL STIMULI, BUT REFUSED BREAKFAST AND DINNER TODAY. SHE REFUSED HER MEDICATIONS STATING "YOU CAN GIVE LATER" BUT WHEN OFFERED LATER SHE CONTINUED TO REFUSE. PT INCONTINENT OF STOOL AND URINE. STOOL HAD FAINT PINK OUTLINE WHICH APPEARED LIKE IT MAY BE A HINT OF BLOOD IN STOOL WHICH WAS VERY LARGE AND SOFT. PT DID NOT REALIZE SHE HAD BEEN INCONTINENT OF STOOL AND WAS SURPRISED BY THIS. PT SET UP FOR DINNER THIS EVENING AND SHE DID TAKE A COUPLE OF BITES OF POTATOES AND DID DRINK HER WHOLE ENSURE. CONTINUED TO ENCOURAGE PT TO DRINK AND EAT THROUGHOUT THE DAY.
--- NOTE | 2021-08-07 05:17 | NUR ---
PT IS VERY [place], LIFT PATIENT, POOR APPETITE BUT DID EAT HALF A YOGURT FED TO HER THIS SHIFT. LARGE INCONTINENT BM THIS SHIFT. MEDS IN APPLESAUCE. PT DID HAVE FAMILY VISIT. SANDRA AC/HS.
--- NOTE | 2021-08-07 18:33 | NUR ---
LIFT FOR TRANSFERS, 2-PERSON ASST FOR REPOSITIONING. CAN MAKE SOME NEEDS KNOWN, COOPERATIVE WITH PERSONAL CARE, REFUSED MEDS. PT VERY [place]. PT EATS VERY LITTLE. PT IS INCONTINENT. FAMILY AT BEDSIDE EARLIER TODAY. CURRENTLY DENIES PAIN. NO ACUTE CHANGES. CALL-LIGHT IN REACH. BED IN LOWEST POSITION.
--- NOTE | 2021-08-08 05:45 | NUR ---
PT DID EAT A PUDDING, A YOGURT AND AN ENSURE THIS SHIFT. MEDS GIVEN IN APPLESAUCE. PT HAS A HX OF REFUSING CARE AND MEDS OFTEN, PURWICK IN PLACE,
--- NOTE | 2021-08-08 17:53 | NUR ---
AOX1-2, VERY FORGETFUL. LIFT FOR TRANSFERS, 2-PERSON ASST FOR REPOSITIONING. CAN MAKE SOME NEEDS KNOWN, COOPERATIVE WITH PERSONAL CARE, REFUSES MEDS. PT IS [place]. PT EATS VERY LITTLE. PT IS INCONTINENT, PURWICH AND ATTENDS IN PLACE. FAMILY CAME TO VISIT TODAY. CURRENTLY DENIES PAIN. NO ACUTE CHANGES. CALL-LIGHT WITHIN REACH; BED IN LOWEST POSITION.
--- NOTE | 2021-08-09 05:40 | NUR ---
PT IS ALERT, VERY [place] AND BEDBOUND. WEARING ATTENDS WITH PURWICK PLACED. CBG AC/HS, ASPIRATION PRECAUTIONS. PT REFUSES CARE AND MEDS AT TIMES.
[2021-08-09 09:31] LABS: Hematocrit 36.8 % (33.0-51.0); Hemoglobin 11.1 g/dL (11.5-16.0)
[2021-08-09 09:47] LABS: Albumin, Blood 2.9 g/dL (3.4-5.0); Anion Gap 8 mmol/L (6-16); Blood Urea Nitrogen 65 mg/dL (8-24); Bun/Creatinine Ratio 22.3 (12.0-20.0); CO2, Blood 22 mmol/L (21-32); Calcium, Blood 9.5 mg/dL (8.5-10.1); Chloride, Blood 108 mmol/L (98-108); Creatinine, Blood 2.92 mg/dL (0.40-1.00); Glomerular Filtration Rate 16 (60-); Glucose, Blood 205 mg/dL (70-99); Magnesium, Blood 2.3 mg/dL (1.6-2.4); Phosphorus, Blood 3.1 mg/dL (2.5-4.9); Potassium, Blood 4.9 mmol/L (3.5-5.5); Sodium, Blood 138 mmol/L (136-145)
--- NOTE | 2021-08-09 16:38 | NUR ---
PT IS FOGETFUL, CAN MAKE SOME NEEDS KNOWN. COOPERATIVE WITH CARE, REFUSING MEDS. LIFT USED FOR TRANSFERS; PT IN CHAIR FOR ABOUT 4 HOURS TODAY. 1-2 PERSON ASST FOR POSITIONING. PT IS VERY [place]. PT EATS VERY LITTLE, DOES DRINK 100% ENSURE SUPPLMENT ABOUT ONCE TO TWICE A DAY. PT IS INCONTINENT, PURWICK AND ATTENDS IN PLACE. CURRENTLY DENIES PAIN. NO ACUTE CHANGES. CALL-LIGHT WITHIN REACH; BED IN LOWEST POSITION.
--- NOTE | 2021-08-10 05:34 | NUR ---
PT IS CONFUSED VERY RYLAN BALLE[place] PLACED PT IS WEARING ATTENDS. ASP PRECAUTIONS CBG AC/HS. PT IS BEDBOUND, OVERHEAD LIFT FOR TRANSFERS. PT OFTEN REFUSES MEDS.
--- NOTE | 2021-08-11 05:47 | NUR ---
PT IS ALERT, FORGETFUL, DID TAKE ALL MEDICATION THIS SHIFT GIVEN IN APPLESAUCE. BEDBOUND LIFT PT, CBG AC/HS. RYLAN CHANGED THIS SHIFT AFTER LEAKING.
--- NOTE | 2021-08-11 17:11 | NUR ---
DAYSHIFT SUMMARY No acute changes to patient status, patient sleeping comfortably all day. Patient woke up for cares, repositioning. Patient refused to get OOB, RN provided education to patient on skin breakdown, pt responded "Do not argue with me". Poor intake today, food/fluids offered, pt refused. MD aware.
--- NOTE | 2021-08-12 05:08 | NUR ---
SHIFT SUMMARY 81 YR F HOSPITALIZED SINCE 07/14/21. FULL CODE. NO ACUTE CHANGES THIS SHIFT. PT DID ASK FOR A SNACK AND WAS GIVEN CHEESE AND CRACKERS, WHICH SHE ATE. SHE STATED THAT SHE IS NOT COMFORTABLE W/ THE PUREWICK IN PLACE AND WAS ADVISED THAT IT COULD BE REMOVED AND WE WOULD GO BACK TO ROLLING HER FOR CHANGES. SHE STATED THAT SHE DID NOT WANT THAT AND AGREED TO KEEP THE PUREWICK IN PLACE. SHE HAS BEEN PLEASANT AND COOPERATIVE THIS SHIFT.
--- NOTE | 2021-08-13 06:33 | NUR ---
PT ALERT TO SELF AND PLACE. CONFUSED AND FORGETFUL. PT IS RESISTANT TO CARE AND REFUSES AT TIMES WHICH MAKES IT DIFFICULT. IT IS NOTED THOUGHT THAT IF PT IS FIRST ASKED IF SHE WANTS TO DO SOMETHING SHE IMMEIDATELY SAYS NO BUT IF YOU TELL HER YOU'RE GOING TO DO SOMETHING SHE PUSHES BACK INITIALLY THEN HELPS WITH. THIS TOO HOWEVER FLUCTUATES WITH HER WILLINGNESS TO RECEIVE CARE. PER PT RECORD PT LAST BM 08/07. NOTIFIED MD AND PT PLACED ON BOWEL CARE PROGRAM. BOWEL SOUNDS HYPERACTIVE AND ABOMEN NOT TENDER. EXPLAINED TO PT THE NEED FOR INTERVENTION EX. SUPPOSITORY HOWEVER SHE STRONGLY REFUSED AGAINST AND STATED SHE WOULD HAVE BM WHEN SHE WOKE UP. PT WAS ABLE TO SLEEO THROUGHOUT THE NIGHT UNINTERRUPTED. WILL ENDORSE TO ONCOMING RN.
--- NOTE | 2021-08-14 06:39 | NUR ---
SHIFT UPDATE BLOOD GLUCOSE AT HS 307 PER TREND PT HAS PREVIOUSLY BEEN HIGH W/O INTERVENTION WHICH IS DUE TO PTS REFUSAL OF CARE. LANTUS GIVEN PER APR. PER CHART REVIEW LBM 6/10 ABDOMEN SOFT AND SOUNDS PRESENT HYPERACTIVE. PT STRONGLY AGAINST SUPPOSITORY HOWEVER AGREED TO TAKE P.O. MEDS. PT CONTINUES TO BE AGAINST TURNING AND GETS UPSET WHEN SHE IS MOVED. THIS MORNING WHILE TURNING AND CHANING PT, PT STATING "ITS 5AM DON'T YOU HAVE ANYTHING ELSE TO DO." AT THIS TIME PT HAD A VERY SMALL SOFT BM. PUREWICK REMOVED D/T REDNESS. PT TURNED Q2H TO BEST THAT PT WOULD ALLOW.
--- NOTE | 2021-08-14 16:01 | NUR ---
SHIFT SUMMARY PATIENT IS ALERT, ORIENTED X2 PATIENT IS FORGETFUL. UNCOOPERATIVE WITH CARE. PATIENT REFUSED TO PARTICIPATE TODAY. POOR PO INTAKE AND HAS BEEN INCONTINENT THIS SHIFT. SKIN ASSESSMENT DONE TODAY, PATIENT DOES NOT HAVE ANY OPEN WOUNDS ON THE COCCYX. POWDER APPLIED TO THE FOLDS SCHEDULED. PATIENT OFFERED ENSURE. PATIENT STATES "NOT RIGHT NOW IM FINE." PATIENT HAS BEEN SLEEPING MOST OF THE DAY. PATIENT APPEARS TO BE COMFORTABLE. NO ACUTE CHANGES, CALL LIGHT WITHIN REACH, BED IN LOWEST POSITION.
--- NOTE | 2021-08-15 05:36 | NUR ---
ANALYTICS SENIOR MANAGER SUMMARY PT AWAITING PLACEMENT. SHE WAS AGREEABLE TO INSULIN COVERAGE LAST NIGHT AND TOOK HER REMERON AND SEROQUEL IN PUDDING LAST NIGHT. PT CALLED FOR ASSISTANCE WITH BATHROOM BUT UNSURE IF VOID OR BM. SHE IS 2PA AND LIFT PATIENT. PT WITH INCREASED PO INTAKE THIS SHIFT. SHE HAS SOME REDNESS TO THE PANNUS WITH POWDER APPLIED. PT PLEASANT. ALERT AND ORIENTED X2, CONFUSED AT TIMES. NEEDS ASSISTANCE WITH REPOSITIONING IN BED. PRESSES HER CALL LIGHT MULTIPLE TIMES THROUGHOUT THE NIGHT. VERY [place].
--- NOTE | 2021-08-15 12:00 | NUR ---
PT DECLINED THE PT WAS OFFERED ASSISTANCE TO GET UP TO THE CHAIR FOR BOTH BREAKFAST AND LUNCH, SHE DECLINED. THE PT ALSO DECLINED HER AM BOWEL CARE MEDICATIONS AND BREAKFAST AND LUNCH. THE PT STATED THAT SHE JUST WANTED TO SLEEP FOR NOW.
--- NOTE | 2021-08-15 17:11 | NUR ---
PT IS A/OX3. TODAY THE PT HAS REFUSED CARE AND MEDICATIONS. PT REPORTED THAT SHE JUS WANTED TO SLEEP TODAY AND THATS ALL . PT REFUSED BREAKFAST AND LUNCH. THE PT DID ALLOW THIS RN PT PERFORM A MINIMAL ASSESSMENT THIS AM. PT APPEARS TO BE BREATHING EASILY AT THIS TIME. CALL LIGHT IN REACH. WILL CONTINUE TO MONITOR AND ASSESS FOR CHANGES
--- NOTE | 2021-08-16 06:28 | NUR ---
MATERNAL CHILD NURSE SUMMARY PT AWAITING PLACEMENT. SHE HAS SLEPT THROUGH MOST OF THE SHIFT. PT REFUSED NIGHT MEDS DUE TO SLEEP. SHE DID HAVE A VERY LARGE FIRM BM THIS SHIFT. VERY LIMITED PO INTAKE SO LONG ACTING INSULIN WAS HELD LAST NOC. ALERT AND ORIENTED X2 AND VERY [place], REQUIRES REORIENTATION AT TIMES.
--- NOTE | 2021-08-16 17:16 | NUR ---
PT IS A/OX3, VERY [place] OF [place]. TODAY THE PT AGREED TO HAVE SOME BREAKFAST, HOWEVER ONLY TOOK ABOUT 20%. PT WAS COMPLIANT WITH TAKEING HER AM MEDICATIONS AND INSULIN. THE PT CONTINUES TO STATE THAT SHE IS VERY TIRED AND FEELS LIKE SHE NEEDS TO SLEEP. PT WAS REPOSITIONED A COUPLE OF TIMES THIS SHIFT SHE WOULD ALLOW. THE PT SKIN WAS ASSESSED NO SKIN BREAKDOWN WAS NOTICED. POWDER WAS APPLIED UNDER THE PANIS FOR BREAKDOWN PREVENTION. CALL LIGHT IN REACH, WILL CONTINUE TO MONITOR AND ASSESS FOR CHANGES
--- NOTE | 2021-08-17 00:21 | NUR ---
08/16/212049 PT LYING IN BED, DENIES ANY DISCOMFORT AT THIS TIME, BS WAS 267, TRACE EDEMA IN LE'S, R PRICE HAS SCABS/SCALY AND SOME REDNESS. NO OTHER APPARENT SIGNS OF DISTRESS. CALL LIGHT IS IN REACH.
--- NOTE | 2021-08-17 01:02 | NUR ---
08/16/21 2330 PT REQUESTED AND RECIEVED CHEESE AND CRACKERS, NO OTHER APPARENT SIGNS OF DISTRESS. CALL LIGHT IS IN REACH.
--- NOTE | 2021-08-17 04:45 | NUR ---
0200 PT IS LYING IN BED, AWAKE, WATCHING TV. PT REPEATEDLY ASKS FOR FOOD. NO OTHER APPARENT SIGNS OF DISTRESS. CALL LIGHT IS IN REACH.
--- NOTE | 2021-08-17 04:46 | NUR ---
PT IS AAO X 4, ON RA AT 95%. BS WAS 267. TRACE EDEMA IN LE'S. R PRICE HAS SCABS/SCALY AND REDNESS.
--- NOTE | 2021-08-17 04:46 | NUR ---
0400 PT LYING IN BED, EYES CLOSED, WAKES EASILY TO VERBAL STIMULI. NO APPARENT SIGNS OF DISTRESS. CALL LIGHT IS IN REACH.
--- NOTE | 2021-08-17 06:04 | NUR ---
PT LYING IN BED, EYES CLOSED, APPEARS TO BE RESTING. BREATHING IS EVEN, UNLABORED. NO APPARENT SIGNS OF DISTRESS. CALL LIGHT IS IN REACH. NO OTHER CHANGES THIS SHIFT.
--- NOTE | 2021-08-17 11:45 | NUR ---
bLOOD SUGAR 267 THIS AM. NOC NURSE REPORTS THAT THE PATIENT WAS ASKING FOR FOOD ALL NIGHT LONG. SHE REFUSED HER BREAKFAST THIS AM BECAUSE SHE WAS STILL FULL FROM ALL THE SNACKING OVER NIGHT.
--- NOTE | 2021-08-17 18:04 | NUR ---
Patient slept through the shift today. She would wake briefly to speak with nurse and then state that she was tired and wanted to sleep. Food was declined. Patient had no complaints other than her level of fatigue.
--- NOTE | 2021-08-17 18:26 | NUR ---
END OF SHIFT PATIENT DID WAKE TO EAT SOME OF HER DINNER, BUT NOT MUCH. SHE DID DRINK QUITE A BIT OF HER NUTRITIONAL SUPPLEMENT. SHE STATES SHE IS COLD SO A WARM BLANKET WAS PROVIDED. SHE FEELS TIRED STILL, EVEN AFTER SLEEPING MOST OF THE SHIFT.
--- NOTE | 2021-08-17 21:54 | NUR ---
UPDATE CBG 97 AT HS. 30U HS LANTUS HELD. WILDLIFE CONTROL OPERATOR PROVIDER NOTIFIED. NO NEW ORDERS
--- NOTE | 2021-08-18 04:06 | NUR ---
SHIFT SUMMARY A/O 2-3, FLAT WITHDRAWN AFFECT. OCCASIONALLY REFUSING CARE. DENIES PAIN OR SOB. VSS, NO ACUTE CHANGES AT THIS TIME. BED IN LOWEST POSITION WITH CALL LIGHT IN REACH. WILL CONTINUE TO MONITOR AND REPORT TO ONCOMING RN.
--- NOTE | 2021-08-18 16:09 | NUR ---
NO NEW CONCERNS THIS SHIFT. PATIENT SLEPT MOST OF THE SHIFT. NURSING WOULD WAKE HER AT TIMES, FOR MEALS BUT SHE STILL DECLINED HER LUNCH TRAY. NO NEW COMPLALINTS REPORTED. PERIWIC WAS CHANGED THIS AM.
--- NOTE | 2021-08-19 05:47 | NUR ---
PT IS ALERT, VERY [place], REFUSES CARE OFTEN, INCONTINENT, PURWICK PLACED; PT WILL OFTEN PULL ON IT AND DISLODGE. PILLS GIVEN IN APPLESAUCE.
--- NOTE | 2021-08-19 13:56 | NUR ---
Reviewed pt's chart today. Pt qualifies for hospice under "non-disease specific baseline guidelines". She scored 40% KPS score. She requires assistance with all ADL's, and she has 4 total comorbidities including DM type 2, Renal failure, liver disease and dementia. Pt's grandson in law Antonio agrees today to change pt's code status to DNR, and is agreeable to a hospice consult upon d/c from hospital. Vanessa COBIAN from Care Management aware of these changes. Pt was cooperative with assessment. Noted she appears stoic, while also verbalizing her irritibility with staff for "bothering her". She scowls frequently throughout our conversation. May be related to her dementia and apparent mistrust of strangers. After several minutes of small talk, pt asked if I could leave so she could take a nap. I obliged her. Palliative care to continue to follow pt through hospitalization.
--- NOTE | 2021-08-19 18:20 | NUR ---
SHIFT SUMMARY PT ATTEMPTED TO REFUSE CARE TODAY, BUT STAFF WAS PERSISTENT AND ABLE TO CONVINCE PT TO LET US REPOSITION HER, BRING IN MEALS, AND TAKE MEDICATIONS, SHE IS STILL NOT SLEEPING WELL AT NIGHT AND HAS ALMOST REVERSED HER NIGHTS AND DAYS ENTIRELY. PALLIATIVE CREDIT ADVISOR EIN AND DISCUSSED BEING MORE COMPLIANT WITH CARE WITH THE PT TO WHICH SHE AGREE AND THEN ALLOWED STAFF TO HELP HER. FAMILY AND CARE COORDINATORS ARE STILL SEEKING PLACEMENT FOR HER, BUT PT STILL NEEDS TO BE INTERVIWED. BED IN LOWEST POSITION AND CALL LIGHT WITHIN REACH
--- NOTE | 2021-08-20 05:31 | NUR ---
PT IS ALERT, [place], OFTEN CONFUSED. REFUSES CARE OFTEN, CBG BID. PT IS INCONTINENT, PURWICK PLACED.
--- NOTE | 2021-08-20 16:23 | NUR ---
SHIFT SUMMARY PT HAS BEEN NON COMPLAINT WITH CAR TODAY. SHE REFUSED MEDICATIONS, TO BE TURNED AND TO COOPERATE WITH STAFF. ADULT [facility] CARE ATTEMPTED TO VISIT AND INTERVIEW HER AND SHE REFUSED THEM.BED IN THE LOWEST POSITION AND CALL LIGHT IN REACH
--- NOTE | 2021-08-21 05:31 | NUR ---
SHIFT SUMMARY NO ACUTE CHANGES THIS SHIFT. AOX2-SELF, PLACE, FOLLOWING DIRECTIONS. FORGETFUL DATE, SITUATION. VERY [place]. VSS. DENIES PAIN, N/V OR DYSPNEA. CBG @208. AWAITING SAFE DC PLAN. PLEASENT & COOPERATIVE c CARE.
--- NOTE | 2021-08-21 17:07 | NUR ---
SHIFT SUMMARY PT HAS BEEN SLEEPING ALL DAY. DID NOT REFUSE CARE TODAY. PT CONTINEU TO BE WITHDRAWN AND NOT PARTICIPATE IN CONVERSATIONS. BED IN LOWEST POSITION CALL LIGHT IN REACH STILL WAITING FOR PLACEMENT.
--- NOTE | 2021-08-22 04:25 | NUR ---
SHIFT SUMMARY ADMITTED FOR MELENA/SHOCK. DNR CODE. FOUND TO HAVE UTI. BID CHEMSTICKS. PLAN IS FOR PLACEMENT AT A FACILITY ON HOSPICE VS AFC. SHE DOES REFUSES CARE SO PLACEMENT IS PROBLEMATIC. SHE IS [place]. PREVIOUSLY FROM [place] SHE NEEDS NEW PLACEMENT. SHE IS A LIFT PT. HX OF DEMENTIA/BEHAVIORAL DISTURBANCES. NO IV ACCESS. SHE IS A&O TO SELF. SHE IS INCONTINENT. RASH IN FOLDS OF GROIN. RX GIVEN WHOLE W/APPLESAUCE.
--- NOTE | 2021-08-22 15:38 | NUR ---
SHIFT SUMMARY PT SLEEPING RESTING QUIETLY AT START OF SHIFT. PT HAS CONTINUED TO SLEEP THRU OUT THE DAY. WAKES EASILY FOR CARE, BUT HAS REFUSED TO EAT BREAKFAST OR LUNCH; JUST WANTING TO SLEEP. BED BATH AND LINEN CHANGE DONE THIS AM. ATTENDS CHANGED FOR INCONTINENCE THRU OUT THE DAY. NO C/O, BUT PREFERS TO BE LEFT ALONE. PT CONTINUES TO WAIT FOR PLACEMENT OR D/C ON HOSPICE, PER REPORT. CALL LT IN REACH.
--- NOTE | 2021-08-23 04:30 | NUR ---
SHIFT SUMMARY ADMITTED FOR MELENA/SHOCK. DNR CODE. FOUND TO HAVE UTI. PLAN IS FOR PLACEMENT ON HOSPICE. BID CHEMSTICKS, 2 G LOW K+ DIET. LIFT PT. ON RA. A&O X SELF. RASH IN FOLDS OF GROIN. INCONTINENT, BRIEF IN PLACE. [place]. REFUSES CARE, REFUSES MEDS. RX GIVEN WHOLE W/SAUCE. HX: DEMENTIA, BEHAVIORAL DISTURBANCE, OSORIO - CIRRHOSIS.
--- NOTE | 2021-08-23 15:29 | NUR ---
SHIFT SUMMARY PT SLEEPING AGAIN SINCE START OF SHIFT. WOKE FOR CARE SEVERAL TIMES TODAY, BUT GOES RIGHT BACK TO SLEEP. PT NOT WANTING TO EAT MUCH AGAIN AT MEAL TIMES. PT HAS BEEN WILLING TO DRINK ENSURES TODAY THOUGH. DR CLAIRE IN TO SEE PT AND ATTEMPTED TO GET PT TO SIT UP AND ENJOY THE WEATHER AND VIEW OUTSIDE. BLINDS OPENED FOR A WHILE, BUT PT WANTING RM DARK TO SLEEP. MEDICATIONS ADJUSTED AND DECREASED AGAIN TODAY TO HOPEFULLY GET PT MORE AWAKE DURING THE DAY. NO C/O. PT DENIED NEEDS, JUST WANTING TO SLEEP. TURNED AND CHANGED NEEDED THRU OUT THE DAY. CALL LT IN REACH.
--- NOTE | 2021-08-24 04:42 | NUR ---
SUMMARY NO CHANGES NOTED THROUGH THE NIGHT, PT HAS ATTEMPTED TO REFUSE CARE/MEDS. Q2 TURNS AND SOILED BRIEF CHANGES STILL PROVIDED. BED ALARM IS ON, CALL LIGHT IN REACH.
--- NOTE | 2021-08-24 17:17 | NUR ---
SHIFT SUMMARY- PT VSS. PT [place], DIFFICULT AT TIMES TO COMMUNICATE, SOME CONFUSION NOTED. A&O 1-2. PT APPETITE GOOD. SMALL SKIN TEAR NOTED UNDER PANIS L SIDE, 3 CM, PHOTOS AND DOCUMENTATION TAKEN. PT RESTING BEDFAST WITH SIDE RAILS UP, ALARM SET, AND CALL LIGHT IN REACH.
--- NOTE | 2021-08-25 04:41 | NUR ---
SHIFT SUMMARY: PT IS A/OX3. SHE CONTINUES TO REFUSE SOME CARE/MEDS. SHE WAS REPOSTIONED FREQUENTLY D/T FTT. SHE DOES NOT HAVE ANY C/O PAIN. THE BED IS IN THE LOWEST POSITON AND HER CALL LIGHT IS WITHIN REACH. WE'LL KEEP MONITORING THE REST OF THE SHIFT.
--- NOTE | 2021-08-25 16:09 | NUR ---
SHIFT SUMMARY- PT VSS. PT COMPLIANT WITH MEDS/CARE. PT HAD BEDBATH TOLARATED WELL. PT SPLET THROUGH MOST OF SHIFT STATING THAT SHE DID NOT GET MUCH SLEEP THE NIGHT BEFORE. NO C/O PAIN. PT RESTING COMFORTABLY WITH SDIE RAILS UP AND CALL LIGHT IN REACH.
--- NOTE | 2021-08-26 03:45 | NUR ---
SHIFT SUMMARY: PT IS A/OX3. SHE WAS MORE COMPLIANT WITH CARE THIS SHIFT. SHE DID NOT REFUSE MEDS AND WAS CALM DURING PT CARE. SHE CONTINUES TO BE TURNED FREQUENTLY D/T MADELINE SCORE. THE BED IS IN THE LOWEST POSITION AND WE'LL CONTINUE TO MONITOR.
--- NOTE | 2021-08-26 17:55 | NUR ---
SHIFT SUMMARY- PT VSS. PT COMPLIANT WITH MEDICATION ADMINISTERATION. PT SKIN TEAR ACCESSED/CLEANED, MEPITAL BARRIER APPLIED FOR PROTECTION, NO PAIN STATED FROM PT. PT TRANSFERED TO BOSSMAN BED. PT USED BED BRUNSON AND ASKED TO VOID ON OWN. PT RESTING NOW WITH SIDE RAILS UP, AND CALL LIGHT IN REACH.
--- NOTE | 2021-08-27 06:11 | NUR ---
SHIFT SUMMARY PATIENT ALERT AND ORIENTED X2-3. HAD NO COMPLAINTS OF PAIN OR SHORTNESS OF BREATH. NO ACUTE ISSUES NOTED OVERNIGHT. CALL LIGHT WITHIN REACH. REPORT GIVEN TO ONCOMING RN.
--- NOTE | 2021-08-27 16:23 | NUR ---
SHIFT SUMMARY PT A&O X4 AND IN PLEASENT MOOD T/O SHIFT. PT DENIES CIWA SYMPTOMS. SPOUSE @ BEDSIDE T/O SHIFT. CALL LIGHT W/IN REACH. NS @ 75 INFUSING. CALL LIGHT W/IN REACH. BLOOD GLUCOSE MEDICATED PER SLIDING SCALE, NOTIFIED OF 356-89 BLOOD GLUCOSE-SLIDE SCALE ADJUSTED TO LOW SLIDING SCALE. PLAN TO CONTINUE CIWA MONITORING, LAST REPORTED DRINK YESTERDAY @ 10AM. PT REFUSED LIBRIUM WHEN OFFERED.
--- NOTE | 2021-08-27 16:28 | NUR ---
SHIFT SUMMARY PT A&O X4, MOOD UP AND DOWN W/ FLAT AFFECT. PT PROVIDED W/ RECLINER. PT UP TO CHAIR FOR LUNCH USING LIFT, BEDBATH PROVIDED. PT HAD LG BM ON BEDPAN FOLLOWED BY INCONT. LOOSE STOOL. PT RELUCTANT TO CARE/MEDS, PT COOPERATIVE W/ MIN. REENFORCEMENT. CALL LIGHT W/IN REACH. ATE MIN AMOUNT OF MEAL THIS SHIFT. VSS. AWAITING PLACEMENT.
--- NOTE | 2021-08-28 04:39 | NUR ---
SHIFT SUMMARY ADMITTED FOR MELENA/SHOCK/UTI. DNR CODE. PLAN IS FOR PLACEMENT. ON RA. [place]. 2 G LOW K+ DIET. 2 ASSIST TO CHANGE, LIFT PT FOR TRANSFER TO CHAIR. REFUSES CARE AT TIMES. RX GIVEN WHOLE W/APPLESAUCE. LOOSE BM REPORTED ON PREVIOUS SHIFT. BID CHEMSTICKS. PHYSICAL & OCCUPATIONAL THERAPIES ASSISTING. A&O X3. HX: DM2, DEMENTIA
--- NOTE | 2021-08-28 16:52 | NUR ---
SHIFT SUMMARY PT A&O X3 AND IN PLEASENT MOOD. PT REFUSED DNR BRACELET THIS SHIFT WHEN ATTEMPTING TO PLACE ON R WRIST, PT STATES,"I WANT TO LIVE AND WANT TO RECIEVE CPR, INTUBATION, AND ALL LIFESAVING MEASURES." PLAN TO CONTACT NEXT OF KIN FOR VERIFICATION, NOTIFIED. UP TO CHAIR FOR MEALS W/ BLINDS OPEN. BED BATH PROVIDED THIS SHIFT. CALL LIGHT W/IN REACH. VSS. AWAITING PLACEMENT @ THIS TIME.
--- NOTE | 2021-08-29 04:56 | NUR ---
SHIFT SUMMARY: PT IS A/OX3. SHE IS FORGETFUL AT TIMES. SHE WAS COMPLAINT WITH ALL CARE AND USES THE CALL BUTTON FOR NEEDS. SHE SPENT SOME TIME IN THE CHAIR AND WAS LIFTED BACK TO BED. SHE IS TAKING MEDS WHOLE WITH H20. AND THE DAYSHIFT RN STATED THAT THE PATIENT DOES NOT WANT TO BE A DNR, BUT A FULL CODE WITH CPR, COMPRESSIONS, AND OTHER LIFE SAVING MEASURES. CALL LIGHT IS WITHIN REACH AND WE'LL CONTINUE TO MONITOR.
--- NOTE | 2021-08-29 18:29 | NUR ---
DAY SHIFT SUMMARY 81 YR OLD FEMALE WITH MELENA AND SHOCK. PT WITH DEMENTIA. LIFT IS NEEDED TO AMBULATE PT FROM MED TO CHAIR. UP IN CHAIR THIS SHIFT FOR MEALS. PT IS ON RA, MEDS WHOLE WITH WATER. SCALING AND REDNESS TO SHINS, MEPILEX TO SACRAL AREA. NO ACUTE CHANGES THIS SHIFT, CALL LIGHT WITHIN REACH.
--- NOTE | 2021-08-30 04:42 | NUR ---
SHIFT SUMMARY: PT IS A/OX3. SHE IS FORGETFUL. A LIFT FROM BED TO CHAIR. SHE HAS BEEN TAKING PO MEDS WHOLE W/ H20. THE PT HAS BEEN TURNED FREQUENTLY. SHE HAD NO C/O THIS SHIFT AND WE'LL CONTINUE TO MONITOR.
--- NOTE | 2021-08-30 16:34 | NUR ---
DAY SHIFT SUMMARY 81 YR OLD FEMALE PT ADMITTED WITH MELENA/SHOCK. WAITING PLACEMENT. PT ON RA, TAKES MEDS WHOLE, LIFT TO BE USED FOR AMBULATING FROM CHAIR TO BED. PT HAS REDNESS AND SCALING TO LOWER EXTREMITIES, MEPILEX TO SACRAL AREA, PEN SKIN AREA TO PANIS OPEN TO AIR. NO ACUTE CHANGES THIS SHIFT. CALL LIGHT WITHIN REACH.
--- NOTE | 2021-08-31 04:09 | NUR ---
SHIFT SUMMARY: PT IS A/OX3. FORGETFUL. LIFT FROM BED TO CHAIR. PT HAS BEEN COMPLIANT WITH CARE AND MEDICATIONS. FROM [facility] (WILL NOT RETURN THERE); WILL BE PLACEMENT. SHE DOES USE CALL BUTTON AT TIMES; YELLS OUT OCCASSIONALY. NO NEW CHANGES TO REPORT AND WE'LL CONTINUE TO MONITOR.
--- NOTE | 2021-08-31 19:10 | NUR ---
RECEIVED REPORT AND ASSUMED CARE OF PT. SHE IS LYING IN BED WATCHING TV, CALL LIGHT IN REACH. SHE DENIES ANY NEEDS AT THIS TIME.
--- NOTE | 2021-08-31 19:19 | NUR ---
SHIFT SUMMARY: PT A/O X 3, LIFT PT. PT WAS PLEASANT AND COOPERATIVE WITH CARES TODAY. SHE HAD POOR APPETITED AT BREAKFAST AND LUNCH BUT DID APPEAR TO ENJOY DINNER AND WAS EATING WELL AT SHIFT END. PT IS INCONTINENT AND DID NOT REQUEST USE OF BEDPAN. NO ACUTE CHANGES OR CONCERNS THROUGHOUT SHIFT.
--- NOTE | 2021-09-01 04:16 | NUR ---
SHIFT SUMMARY: RONALD HAS WATCHED TV FOR THE MAJORITY OF THE SHIFT. VSS, NO ACUTE EVENTS OVERNIGHT. SHE HAS ALLOWED SOME TURNING AND REPOSITIONING, COMPLAINED OF NUMBNESS/TINGLING TO BILATERAL FEET FOR WHICH REPOSITIONING WAS ATTEMPTED AND PT WAS ENCOURAGED TO WIGGLE HER TOES, PUMP HER CALVES, AND ROTATE HER ANKLES TO ENCOURAGE CIRCULATION. STRONG PEDAL PULSES, TOES PINK AND WARM WITH BRISK CAPILLARY REFILL. PT DENIED ANY IMPROVEMENT WITH INTERVENTIONS. SHE IS TOLERATING PO INTAKE WELL, ATTENDS IN PLACE FOR INCONTINENT EPISODES ALTHOUGH SHE HAS USED THE BEDPAN TWICE THIS SHIFT. SHE IS LYING IN BED WITH THE CALL LIGHT IN REACH. WILL REPORT TO DAY SHIFT RN.
--- NOTE | 2021-09-01 18:00 | NUR ---
SHIFT SUMMARY: PT A/O X 3 LIFT PT, PLEASANT AND COOPERATIVE WITH CARES. PT IS ABLE TO ASSIST AND FOLLOWS DIRECTIONS WITH ROLL CHANGES. RONALD WAS UP TO CHAIR BEFORE BREAKFAST AND WATCHED TV MOST OF THE DAY AND NAPPED IN THE AFTERNOON AND WAS UP TO EAT DINNER. SHE WAS CONTINENT OF BLADDER TODAY AND REQUESTED TO USE THE BEDPAN WHEN SHE HAD TO GO TO [place]. NO COMPLAINTS OR CONCERNS VOICED BY PATIENT TODAY.
--- NOTE | 2021-09-02 04:36 | NUR ---
SHIFT SUMMARY ADMITTED FOR MELENA/SHOCK. DNR CODE. PLAN IS FOR PLACEMENT. BID CHEMSTICKS. ON RA. NO IV ACCESS. REDNESS IN GROIN AREA. INCONTINENT/CONTINENT. 2G LOW K+ DIET. LIFT TO BSC/CHAIR. COOPERATIVE WITH CARE THIS SHIFT. A&O X2-3. HX: DEMENTIA
--- NOTE | 2021-09-02 17:58 | NUR ---
SHIFT SUMMARY PATIENT DENIES PAIN, NAUSEA, AND SHORTNESS OF BREATH. PATIENT IS A LIFT TRANSFER. PATIENT IS A 2P ASSIST TO REPOSITION. PATIENT WAS UP IN THE CHAIR FOR ALL MEALS AND MOST OF THIS SHIFT. PATIENT DID LAY DOWN IN AFTERNOON TO NAP. PATIENT OCCASSIONALLY FORGETFUL. PATIENT IS EATING AND DRINKING WELL. PATIENT IS AWAITING PLACEMENT. PATIENT IS VERY PLEASANT AND COOPERATIVE WITH CARE.
--- NOTE | 2021-09-03 03:47 | NUR ---
SHIFT SUMMARY PT PLEASANT THIS EVENING. COOPERATIVE WITH CARE. PAINFUL WITH MOVEMENT, ESPECIALLY IN BILATERAL KNEES. LIFT UP FROM CHAIR TO BED. INCONTINENT/CONTINENT. SMALL SOFT RUST COLORED BM TONIGHT. SOME REDNESS TO FOLDS IN JENNA/ABD, NYSTATIN POWDER APPLIED. PT AWAKE ALL NIGHT SO FAR THIS EVENING. HAD A FEW SNACKS AND WATCHED TV. PT HAD AN UNEVENTFUL NIGHT. VITAL SIGNS STABLE. PT CONTINUES TO AWAIT PLACEMENT.
--- NOTE | 2021-09-03 16:21 | NUR ---
SHIFT SUMMARY PATIENT DENIES PAIN, NAUSEA, AND SHORTNESS OF BREATH. PATIENT IS A LIFT FOR TRANSFERS. PATIENT IS A 2P ASSIST TO REPOSITION. PATIENT IS A&O X3, OCCASSIONALLY FORGETFUL. PATIENT IS EATING AND DRINKING OKAY. PATIENT UP IN CHAIR FOR MEALS. PATIENT DID NAP IN AFTERNOON. PATIENT IS AWAITING PLACEMENT. PATIENT IS PLEASANT AND COOPERATIVE WITH CARE.
--- NOTE | 2021-09-04 05:26 | NUR ---
SHIFT SUMMARY PT HAD AN UNEVENTFUL NIGHT. PLEASANT AND COOPERATIVE. UP IN CHAIR AT START OF THE SHIFT. TRANSFERED WITH LIFT TO BED EARLY IN THE EVENING. PT AWAKE MUCH OF THE NIGHT AGAIN THIS EVENING. WATCHING TV AND OCCASSIONALLY SNACKING. NO ACUTE CHANGES. VITAL SIGNS STABLE. PT CONTINUES TO AWAIT PLACEMENT.
--- NOTE | 2021-09-04 18:44 | NUR ---
SHIFT SUMMARY PATIENT DENIES PAIN, NAUSEA, AND SHORTNESS OF BREATH. PATIENT IS A LIFT FOR TRANSFERS. PATIENT IS A 2P TO REPOSITION. PATIENT HAD LITTLE PO INTAKE TODAY. PATIENT WAS UP IN CHAIR FOR MOST OF SHIFT. PATIENT IS PLEASANT AND COOPERATIVE WITH CARE.
[2021-09-05 05:24] LABS: Albumin, Blood 2.7 g/dL (3.4-5.0); Anion Gap 9 mmol/L (6-16); Blood Urea Nitrogen 62 mg/dL (8-24); Bun/Creatinine Ratio 30.8 (12.0-20.0); CO2, Blood 22 mmol/L (21-32); Calcium, Blood 10.5 mg/dL (8.5-10.1); Chloride, Blood 108 mmol/L (98-108); Creatinine, Blood 2.01 mg/dL (0.40-1.00); Glomerular Filtration Rate 24 (60-); Glucose, Blood 164 mg/dL (70-99); Phosphorus, Blood 2.6 mg/dL (2.5-4.9); Potassium, Blood 4.2 mmol/L (3.5-5.5); Sodium, Blood 139 mmol/L (136-145)
--- NOTE | 2021-09-05 06:37 | NUR ---
SHIFT SUMMARY: PATIENT HAS NO COMPLIANTS, ABLE TO MAKE NEEDS KNOW. INC. AT TIMES BUT ALSO USES THE BED BRUNSON. REDDNESS IN SKIN FOLDS WAS TREATED PER MAR AND IS IMPROVING. NO REPORTS OF PAIN OR DISCOMFORT.
--- NOTE | 2021-09-05 15:39 | NUR ---
SHIFT SUMMARY NO ACUTE CHANGES TO PRESENT THIS SHIFT. PT UP TO CHAIR AFTER BED BATH THIS AM. PLEASANT AND CO-OP WITH CARE. REPOSITIONED IN CHAIR FOR COMFORT X1. USES CALL LT APPROP. DENIES FURTHER NEEDS AT THIS TIME. PT CONTINUES TO WAIT FOR PLACEMENT.
--- NOTE | 2021-09-06 05:05 | NUR ---
SHIFT SUMMARY: VSS, NO REPORTS OF PAIN OR DISCOMFORT. PATIENT WAS UP IN CHAIR ALL EVENING. INC. OF URINE AND STOOL WHILE USING THE BED BRUNSON AT TIMES.
--- NOTE | 2021-09-06 14:38 | NUR ---
SHIFT SUMMARY NO ACUTE CHANGES TO PRESENT THIS SHIFT. PT HAS BEEN SLEEPING ALL DAY, EXCEPT FOR BEING WOKE FOR CARE. PT HAS BEEN VERY PLEASANT WHEN WOKE OR NEEDING CARE. NOT WANTING TO EAT MUCH FOR BREAKFAST OR LUNCH SO FAR, WILL DRINK ENSURE. CHANGED FOR INCONTINENCE OF BOWEL AND BLADDER; LOOSE/SOFT STOOL. DID CALL FOR THE BEDPAN ONCE TODAY. NO C/O. CALL LT IN REACH. CONTINUES TO WAIT FOR PLACEMENT.
--- NOTE | 2021-09-07 04:02 | NUR ---
SHIFT SUMARY: PATIENT IS STABLE. NO ACUTE CHANGES. INC. OF BOWEL AND BLADDER THIS SHIFT. BLOOD GLUCOSE WAS 145 AT HS.
--- NOTE | 2021-09-07 19:33 | NUR ---
SHIFT SUMMARY PT WAS CALM AND COOPERATIVE WITH ALL NURSING CARE TODAY, HAD BREAKFAST IN BED BUT THEN WAS UP TO THE CHAIR FOR LUNCH AND DINNER. TRANSFERS MADE WITH A LIFT FOR SAFETY. PT ABLE TO MAKE NEEDS KNOWN, ANSWERS QUESTIONS APPROPRIATELY. NO ACUTE EVENTS THIS SHIFT, CALL LIGHT IN REACH, REPORT GIVEN TO NOC RN.
--- NOTE | 2021-09-08 06:45 | NUR ---
SHIFT SUMMARY: VSS, PATIENT WAS UP IN CHAIR UNTIL AFTER 11PM. REPORTING ITCHING ON BACK AND BUTTOCKS EVEN AFTER SKIN CARE WAS GIVEN. DR NEWTON WAS NOTIFIED AND AN ORDER FOR BENADRYL WAS OBTAINED. PATIENT HAD GOOD EFFECT FROM MED.
--- NOTE | 2021-09-08 16:58 | NUR ---
SHIFT SUMMARY PATIENT IS ALERT AND ORIENTED. PATIENT IS PLEASENT AND COOPERATIVE WITH CARE TODAY. PATIENT HAD LUNCH IN CHAIR. PATIENT IS AWAITING DINNER IN CHAIR. PATIENT IS A LIFT PATIENT FOR SAFETY. PATIENT USES CALL LIGHT APPROPRIATELY. PATIENT HAS HAD NO ACUTE EVENTS THIS SHIFT. VITAL SIGNS REVIEWED. PATIENT HAS NOT COMPLAINED OF NAUSEA, PAIN, SOB OR VOMITTING THIS SHIFT. CALL LIGHT IN PLACE. WILL MONITOR UNTIL SHIFT CHANGE.
--- NOTE | 2021-09-09 04:53 | NUR ---
SHIFT SUMMARY PT HAD AN UNEVENTFUL NIGHT. SEEMED TO SLEEP A LITTLE BETTER THAN MOST NIGHTS THIS RN HAS SEEN WITH PT. PT DID HAVE ONE SNACK AT BEDTIME BUT MOSTLY JUST WATCHED TV AND SLEPT THIS EVENING. PT CONTINENT/INCONTINENT. CALLING FOR BEDPAN AT TIMES. PLEASANT AND COOPERATIVE THROUGHOUT THE SHIFT. VITAL SIGNS STABLE. PT CONTINUES TO AWAIT PLACEMENT.
--- NOTE | 2021-09-09 05:36 | NUR ---
PT HAD BEEN COOPERATIVE MOST OF THE EVENING BUT REFUSED MORNING VITAL SIGNS AND REFUSED TO BE REPOSITIONED THIS AM.
--- NOTE | 2021-09-09 16:42 | NUR ---
SHIFT SUMMARY PATIENT IS ALERT AND ORIENTED 2-3. PATIENT HAS BEEN IN CHAIR MOST OF SHIFT. PATIENT IS COMPLIANT WITH TRANSFERS. PATIENT HAS BEEN RESTING MOST OF SHIFT. PATIENT IS PLEASENT AND COOPERATIVE THIS SHIFT. NO ACUTE EVENTS THIS SHIFT. VITAL SIGNS REVIEWED. BED IN LOCKED AND LOWEST POSITION. CALL LIGHT IN PLACE. WILL MONITOR UNTIL SHIFT CHANGE.
--- NOTE | 2021-09-09 19:21 | NUR ---
RECEIVED BEDSIDE REPORT. PT UP IN BED EATING DINNER. PER RN. PT HAS HAD A POOR APPETITE. RESP E/U ON RA. [place]. NO NEEDS AT THIS TIME. WILL PROVIDE CARE T/O SHIFT. CALL LT IN REACH.
--- NOTE | 2021-09-09 21:17 | NUR ---
PLACED A PILLOW UNDER PT'S LEFT SIDE. PT WAS ABLE TO STRAIGHTEN SELF UP IN BED. CALL LT IN REACH.
--- NOTE | 2021-09-09 21:24 | NUR ---
RECEIVED REPORT FROM POOL SERVICER.
--- NOTE | 2021-09-09 23:18 | NUR ---
CREAM APPLIED TO RIGHT INNER THIGH. PT STATES SHE WAS ITCHY. CREAM APPEARS TO HAVE HELP. CALL LT IN REACH.
--- NOTE | 2021-09-10 01:01 | NUR ---
REPOSITIONED PT FOR COMFORT, CHANGED ATTENDS, PROVIDED PERICARE AND CREAMED BOTTOM. CALL LT IN REACH.
--- NOTE | 2021-09-10 02:00 | NUR ---
PT RESTING QUIETLY AT THIS TIME. CALL LT IN REACH.
--- NOTE | 2021-09-10 05:34 | NUR ---
SHIFT SUMMARY: ALERT. COOPERATIVE WITH CARE. TOOK MEDS WITHOUT DIFFICULTY ONE AT A TIME WITH WATER. INCONTINENT OF URINE AND BOWEL. HAD SMALL BM DURING SHIFT. POOR APPETITE, STATES SHE'S JUST HASN'T BEEN VERY HUNGRY. ASSISTS WITH TURNS IN BED. LIFT TO CHAIR. [email or web address] RA. DNR BAND IN PLACE. NO ACUTE CHANGES. AWAITING PLACEMENT. WILL CONTINUE TO PROVIDE CARE UNTIL SHIFT REPORT.
--- NOTE | 2021-09-10 07:33 | NUR ---
FURNITURE REPAIRER CALLED AT 0622. SEE NOTE IN FURNITURE REPAIRER INTERVENTION.
--- NOTE | 2021-09-10 16:39 | NUR ---
SHIFT SUMMARY PATIENT IS ALERT AND ORIENTED X2/3. PATIENT HAD A NOSEBLEED RIGHT BEFORE SHIFT CHANGE THIS AM, SINCE RESOLVED. PATIENT HAS NOT HAD ANY ACUTE EVENTS THIS SHIFT. PATIENT HAS BEEN PLEASENT AND COOPERATIVE THIS SHIFT. VITAL SIGNS REVIEWED. BED IN LOCKED AND LOWEST POSITION. CALL LIGHT IN PLACE. WILL MONITOR UNTIL SHIFT CHANGE.
--- NOTE | 2021-09-11 04:25 | NUR ---
SHIFT SUMMARY: PT IS A/OX3. FORGETFUL. SHE DOES USE THE CALL BUTTON FOR NEEDS. INCONT/CONT. SHE DOES WELL TAKING MEDS WHOLE WITH WATER. SKIN INTEGRITY INTACT, REDNESS TO COCCYX, UNDER FOLDS AND PANNUS, BUT NO BREAKDOWN. WE WILL CONTINUE TO MONITOR.
[2021-09-11 04:43] LABS: Hematocrit 35.1 % (33.0-51.0)
[2021-09-11 05:02] LABS: Albumin, Blood 2.8 g/dL (3.4-5.0); Anion Gap 7 mmol/L (6-16); Blood Urea Nitrogen 65 mg/dL (8-24); Bun/Creatinine Ratio 32.7 (12.0-20.0); CO2, Blood 23 mmol/L (21-32); Calcium, Blood 10.8 mg/dL (8.5-10.1); Chloride, Blood 108 mmol/L (98-108); Creatinine, Blood 1.99 mg/dL (0.40-1.00); Glomerular Filtration Rate 25 (60-); Glucose, Blood 166 mg/dL (70-99); Magnesium, Blood 2.1 mg/dL (1.6-2.4); Phosphorus, Blood 2.5 mg/dL (2.5-4.9); Potassium, Blood 3.9 mmol/L (3.5-5.5); Sodium, Blood 138 mmol/L (136-145)
--- NOTE | 2021-09-11 17:24 | NUR ---
SHIFT SUMMARY PATIENT IS ALERT AND ORIENTED. PATIENT HAS BEEN PLEASENT AND COOPERATIVE WITH CARE. PATIENT HAS BEEN RESTING IN CHAIR AND BED MOST OF SHIFT. PATIENT HAS NOT HAD MUCH OF APPETITE THIS SHIFT. PATIENT HAS HAD NO ACUTE EVENTS THIS SHIFT. VITAL SIGNS REVIEWED. PATIENT HAS NOT COMPLAINED OF SOB, NAUSEA, VOMITTING OR PAIN THIS SHIFT. BED IN LOCKED AND LOWEST POSITION. CALL LIGHT IN PLACE. WILL MONITOR UNTIL SHIFT CHANGE.
--- NOTE | 2021-09-12 05:44 | NUR ---
SHIFT SUMMARY: PT IS A/OX3; FORGETFUL. SHE HAS BEEN COMPLIANT WITH ALL CARE AND USED THE CALL BUTTON FOR NEEDS. NO ACUTE CHANGES THIS SHIFT AND WE'LL CONTINUE TO MONITOR.
--- NOTE | 2021-09-12 17:53 | NUR ---
SHIFT SUMMARY PATIENT DENIES PAIN, NAUSEA, AND SHORTNESS OF BREATH. PATIENT IS A LIFT FOR TRANSFERS. PATIET IS A 2P TO REPOSITION. PATIENT NAPPED THROUGHOUT DAY. PATIENT A&O X3, INTERMITTENT CONFUSION, BUT VERY PLEASANT. COOPERATIVE WITH CARE AND MEDS. PATIENT HAS LITTLE PO INTAKE, BUT DRINKS THE SUPPLEMENTS WITH EVERY MEAL. PATIENT IS AWAITING PLACEMENT.
--- NOTE | 2021-09-13 03:59 | NUR ---
SHIFT SUMMARY: PT IS A/OX3 AND FORGETFUL. SHE IS TAKING MEDS WHOLE W/ WATER. SHE IS A LIFT FROM BED TO CHAIR. THE PT HAS BEEN REPOSITIONED FREQUENTLY AND HAD NO C/O PAIN. CALL LIGHT IS WITHIN REACH AND WE'LL CONTINUE TO MONITOR.
[2021-09-13 08:57] LABS: Hematocrit 34.1 % (33.0-51.0); Hemoglobin 10.8 g/dL (11.5-16.0); Mean Corpuscular HGB 28.3 pg (26.0-34.0); Mean Corpuscular HGB Conc 31.7 g/dL (31.5-36.5); Mean Corpuscular Volume 90 fL (80-100); Mean Platelet Volume 11.4 fL (9.1-12.4); Platelet Count 180 K/mm3 (150-400); RDW Coefficient Variation 15.8 % (11.7-14.2); RDW Standard Deviation 51.9 fL (35.1-46.3); Red Blood Cell Count 3.81 M/mm3 (3.80-5.20); White Blood Cell Count 8.34 K/mm3 (4.00-11.30)
[2021-09-13 09:39] LABS: Albumin, Blood 2.7 g/dL (3.4-5.0); Albumin/Globulin Ratio 0.9 (0.8-1.8); Bilirubin, Total 0.3 mg/dL (0.1-1.0); Bun/Creatinine Ratio 31.5 (12.0-20.0); Calcium, Blood 10.6 mg/dL (8.5-10.1); Potassium, Blood 4.2 mmol/L (3.5-5.5); Thyroid Stimulating Hormone 2.4 uIU/mL (0.360-4.800); Total Protein, Blood 5.7 g/dL (6.4-8.2)
--- NOTE | 2021-09-13 14:54 | NUR ---
SHIFT SUMMARY NO ACUTE CHANGES TO PRESENT THIS SHIFT. PT CONTINUES TO WAIT PLACEMENT. PER SHIFT REPORT, PT TO D/C TO [facility] TOMORROW ON HOSPICE. PT IS CONTINENT/ INCONTINENT OF BOWEL AND BLADDER. CALLS FOR BED BRUNSON WHEN AWAKE. MOSTLY INCONTINENT WHEN ASLEEP. DOES NOT EAT MUCH FOR MEALS. DOES DRINK HER NUTRITIONAL SUPPLEMENTS THOUGH. DR GRANDA HERE TO CK ON PT THIS AFTERNOON. NO C/O. PT DENIED FURTHER NEEDS AT THIS TIME. REPOSITIONED THRU OUT SHIFT TO KEEP OFF BUTTOCKS. CALL LT IN REACH.
[2021-09-14 04:50] LABS: Hematocrit 35.3 % (33.0-51.0); Hemoglobin 11.2 g/dL (11.5-16.0); Mean Corpuscular HGB Conc 31.7 g/dL (31.5-36.5); Mean Corpuscular Volume 88 fL (80-100); Mean Platelet Volume 11.6 fL (9.1-12.4); Platelet Count 160 K/mm3 (150-400); RDW Coefficient Variation 15.8 % (11.7-14.2); RDW Standard Deviation 51.5 fL (35.1-46.3); White Blood Cell Count 8.85 K/mm3 (4.00-11.30)
[2021-09-14 05:00] LABS: Calcium, Blood 10.3 mg/dL (8.5-10.1); Creatinine, Blood 1.89 mg/dL (0.40-1.00); Potassium, Blood 4.3 mmol/L (3.5-5.5)
--- NOTE | 2021-09-14 05:58 | NUR ---
SHIFT SUMMARY: THERE HAVE NOT BEEN ANY NEW CHANGES THIS SHIFT. SHE IS A LIFT FROM BED TO CHAIR. THE PATIENT DID NOT HAVE ANY C/O AND HAS BEEN COOPERATIVE WITH ALL CARE. SHE WILL BE DC'ING TO [facility] TODAY.
[2021-09-14] MEDS ORDERED: DOCU100 PO (10:09)
[2021-09-14] MEDS ORDERED: BISA10S PR (10:09)
[2021-09-14] MEDS ORDERED: SENN187 PO (10:10)
[2021-09-14] MEDS ORDERED: QUET25 PO (10:10)
[2021-09-14] MEDS ORDERED: METF500 PO (10:11)
[2021-09-14] MEDS ORDERED: MICONAZOLE NITRATE TOP (10:12)
--- NOTE | 2021-09-14 14:47 | NUR ---
SHIFT SUMMARY NO ACUTE CHANGES TO PRESENT THIS SHIFT. PT ABLE TO D/C TO [facility] TODAY ON H[facility]PICE. PT IS PLEASANT AND CO-OP WITH CARE. BED BATH GIVEN AFTER BREAKFAST. PT ABLE TO FEED HERSELF, BUT DOES NOT WANT TO EAT MUCH. CONTINENT AND INCONTINENT OF BOWEL AND BLADDER. CALLS FOR BED BRUNSON WHEN AWAKE. ABLE TO USE CALL LT. DENIED FURTHER NEEDS.
== END 2021-09-14 14:30 | disposition hospice, inpatient (51) | DRG 871 ==
LOC: ER 14:59 → PCU 15:00 → ICUE 15:00 → ICUW 15:00 → MEDS 15:00 → ICUE 19:45 → PCU 07-16 14:46 → MEDS 07-18 12:45 → ENPENDDIS 07-20 15:31 → MEDS 07-24 17:49
PROVIDERS: Internal Medicine; Internal Medicine Critical Care Medicine; Internal Medicine Nephrology; Physician Assistant; ADMIT Internal Medicine
PROC: 3E033XZ Introduction of Vasopressor into Peripheral Vein, Percutaneous Approach (ICD-10-PCS; principal; 2021-07-14)
PROC: 3E03329 Introduction of Other Anti-infective into Peripheral Vein, Percutaneous Approach (ICD-10-PCS; 2021-07-14)
PROC: 0DJ08ZZ Inspection of Upper Intestinal Tract, Via Natural or Artificial Opening Endoscopic (ICD-10-PCS; 2021-07-15)
PROC: 02HV33Z Insertion of Infusion Device into Superior Vena Cava, Percutaneous Approach (ICD-10-PCS; 2021-07-17)
DX: A41.51 Sepsis due to Escherichia coli [E. coli] (principal); G92.8 Other toxic encephalopathy; J18.9 Pneumonia, unspecified organism; R57.8 Other shock; K29.81 Duodenitis with bleeding; E87.0 Hyperosmolality and hypernatremia; N25.81 Secondary hyperparathyroidism of renal origin; E87.2 Acidosis; N17.9 Acute kidney failure, unspecified; N18.4 Chronic kidney disease, stage 4 (severe); D62 Acute posthemorrhagic anemia; F03.91 Unspecified dementia, unspecified severity, with behavioral disturbance; N39.0 Urinary tract infection, site not specified; J44.0 Chronic obstructive pulmonary disease with (acute) lower respiratory infection; Z66 Do not resuscitate; Z51.5 Encounter for palliative care; Z20.822 Contact with and (suspected) exposure to COVID-19; E78.5 Hyperlipidemia, unspecified; N32.81 Overactive bladder; F03.90 Unspecified dementia, unspecified severity, without behavioral disturbance, psychotic disturbance, mood disturbance, and anxiety; E66.01 Morbid (severe) obesity due to excess calories; D63.1 Anemia in chronic kidney disease; R04.0 Epistaxis; E11.22 Type 2 diabetes mellitus with diabetic chronic kidney disease; K29.80 Duodenitis without bleeding; K21.9 Gastro-esophageal reflux disease without esophagitis; R65.20 Severe sepsis without septic shock; R32 Unspecified urinary incontinence; L30.4 Erythema intertrigo; B37.2 Candidiasis of skin and nail; E83.51 Hypocalcemia; E83.39 Other disorders of phosphorus metabolism; E88.09 Other disorders of plasma-protein metabolism, not elsewhere classified; D50.9 Iron deficiency anemia, unspecified; K22.2 Esophageal obstruction; K74.60 Unspecified cirrhosis of liver; K75.81 Nonalcoholic steatohepatitis (NASH); Z91.14 Patient's other noncompliance with medication regimen; Z68.36 Body mass index [BMI] 36.0-36.9, adult; Z87.440 Personal history of urinary (tract) infections; Z86.73 Personal history of transient ischemic attack (TIA), and cerebral infarction without residual deficits; Z98.51 Tubal ligation status; Z90.49 Acquired absence of other specified parts of digestive tract; Z98.890 Other specified postprocedural states; Z98.891 History of uterine scar from previous surgery; Z90.710 Acquired absence of both cervix and uterus; Z88.0 Allergy status to penicillin; Z88.2 Allergy status to sulfonamides; Z79.4 Long term (current) use of insulin; Z79.899 Other long term (current) drug therapy
CPT/HCPCS: 0241U; 36415; 36569; 51702; 70450; 71045; 76770; 80048; 80053; 80069; 80400; 81001; 82140; 82533; 82607; 82728; 82746; 82803; 82947; 83540; 83550; 83605; 83735; 83880; 84295; 84443; 85014; 85018; 85025; 85027; 85610; 85730; 87077; 87086; 87186; 87507; 93005; 93010; 94640; 94664; 94760; 94761; 94762; 96374; 97110; 97162; 97166; 97530; 99285-25; A9270; C1751; C9113; J0171; J0696; J0834; J1430; J1450; J1815; J2250; J2370; J2405; J2704; J2760; J2916; J7030; J7060; J7120; P9046

== ENCOUNTER → 2021-11-04 | Outpatient (CLI) | payer MEDICARE ==
[~2021-11-04] MED LIST changes: +DOCU100 PO; +FURO80; +FURO80 PO; +INSULANI SC; +LOPERAMIDE PO; +METF500 PO; +MICONAZOLE NITRATE TOP; +NOVOLIN 70100 UNIT/3; +NOVOLOG FL100 UNIT/3 SC; +Prinivil10 MG PO; +QUET25 PO; +SENN187 PO; +THERA-D2000 UNIT PO
[2021-11-04 11:55] LABS: Source, Urine Clean Catch
[2021-11-04 13:46] LABS: Appearance, Urine Hazy (Clear); Bilirubin, Urine Neg (Neg); Blood, Urine 2+ (Neg); Color, Urine Yellow (P-Yellow); Glucose Qualitative, Urine Neg (Neg); Ketones, Urine 1+ (Neg); Leukocyte Esterase, Urine 3+ (Neg); Nitrite, Urine Neg (Neg); Protein, Urine 1+ (Neg); Specific Gravity, Urine 1.015 (1.003-1.022); Urobilinogen, Urine NORM (Normal)
[2021-11-04 14:10] LABS: White Blood Cells, Urine 25-50 /hpf (0-5)
[2021-11-04 14:11] LABS: Bacteria Many /hpf; Squamous Epithelial Cells Few /hpf (Few); Triple Phosphate Crystals Many /hpf
== END | disposition home or self-care (01) ==
LOC: LAB SHORT 11:53
PROVIDERS: Family Medicine
DX: N39.0 Urinary tract infection, site not specified (principal)
CPT/HCPCS: 81001; 87077; 87086; 87186

== ENCOUNTER 2021-12-30 03:01 | Emergency (ER) | payer MEDICARE, OTHER ==
[~2021-12-30] VITALS: Ht 154.9 cm; Wt 115.7 kg
== END 2021-12-30 06:56 | disposition home or self-care (01) ==
LOC: ER 03:01
DX: R04.0 Epistaxis (principal); I12.9 Hypertensive chronic kidney disease with stage 1 through stage 4 chronic kidney disease, or unspecified chronic kidney disease; E11.22 Type 2 diabetes mellitus with diabetic chronic kidney disease; N18.30 Chronic kidney disease, stage 3 unspecified; J44.9 Chronic obstructive pulmonary disease, unspecified; Z87.891 Personal history of nicotine dependence; Z88.0 Allergy status to penicillin; Z88.1 Allergy status to other antibiotic agents; Z88.2 Allergy status to sulfonamides; Z79.899 Other long term (current) drug therapy; Z79.4 Long term (current) use of insulin
CPT/HCPCS: A9270

== ENCOUNTER 2021-12-30 11:30 | Emergency (ER) | payer MEDICARE, OTHER ==
[~2021-12-30] VITALS: Ht 157.5 cm; Wt 86.2 kg
== END 2021-12-30 17:10 | disposition home or self-care (01) ==
LOC: ER 11:30
DX: R04.0 Epistaxis (principal); E11.22 Type 2 diabetes mellitus with diabetic chronic kidney disease; I12.9 Hypertensive chronic kidney disease with stage 1 through stage 4 chronic kidney disease, or unspecified chronic kidney disease; N18.30 Chronic kidney disease, stage 3 unspecified; J44.9 Chronic obstructive pulmonary disease, unspecified; Z87.891 Personal history of nicotine dependence; Z88.0 Allergy status to penicillin; Z88.2 Allergy status to sulfonamides; Z88.8 Allergy status to other drugs, medicaments and biological substances; Z79.899 Other long term (current) drug therapy; Z79.4 Long term (current) use of insulin
CPT/HCPCS: 30901; 99283-25

== ENCOUNTER 2022-01-03 05:14 | Emergency (ER) | payer MEDICARE, OTHER ==
[~2022-01-03] VITALS: Ht 157.5 cm; Wt 80.3 kg
[2022-01-03] MEDS ORDERED: Robaxin750 MG PO (07:52)
== END 2022-01-03 09:17 | disposition home or self-care (01) ==
LOC: ER 05:14
DX: R04.0 Epistaxis (principal); M54.50 Low back pain, unspecified; F03.90 Unspecified dementia, unspecified severity, without behavioral disturbance, psychotic disturbance, mood disturbance, and anxiety; I12.9 Hypertensive chronic kidney disease with stage 1 through stage 4 chronic kidney disease, or unspecified chronic kidney disease; E11.22 Type 2 diabetes mellitus with diabetic chronic kidney disease; N18.30 Chronic kidney disease, stage 3 unspecified; J44.9 Chronic obstructive pulmonary disease, unspecified; Z79.899 Other long term (current) drug therapy; Z79.4 Long term (current) use of insulin; Z88.0 Allergy status to penicillin; Z88.2 Allergy status to sulfonamides; Z88.1 Allergy status to other antibiotic agents; Z87.891 Personal history of nicotine dependence
CPT/HCPCS: 30901; 99283

== ENCOUNTER 2022-02-07 14:50 | Emergency (ER) | payer MEDICARE, OTHER ==
[~2022-02-07] VITALS: Ht 160 cm; Wt 86.2 kg
[~2022-02-07 14:50] MED LIST changes: +Robaxin750 MG PO
== END 2022-02-07 16:00 | disposition home or self-care (01) ==
LOC: ER 14:50
DX: R04.0 Epistaxis (principal); I12.9 Hypertensive chronic kidney disease with stage 1 through stage 4 chronic kidney disease, or unspecified chronic kidney disease; N18.30 Chronic kidney disease, stage 3 unspecified; E11.22 Type 2 diabetes mellitus with diabetic chronic kidney disease; J44.9 Chronic obstructive pulmonary disease, unspecified; Z87.891 Personal history of nicotine dependence; Z88.0 Allergy status to penicillin; Z88.2 Allergy status to sulfonamides; Z88.1 Allergy status to other antibiotic agents; Z79.899 Other long term (current) drug therapy; Z79.4 Long term (current) use of insulin
CPT/HCPCS: 99283

== ENCOUNTER → 2022-02-16 | Outpatient (CLI) | payer MEDICARE, OTHER ==
[2022-02-16 15:18] LABS: Appearance, Urine Cloudy (Clear); Bilirubin, Urine Neg (Neg); Blood, Urine 1+ (Neg); Glucose Qualitative, Urine Neg (Neg); Ketones, Urine Neg (Neg); Leukocyte Esterase, Urine 3+ (Neg); Nitrite, Urine Neg (Neg); Protein, Urine 1+ (Neg); Specific Gravity, Urine 1.015 (1.003-1.022); Urobilinogen, Urine NORM (Normal)
[2022-02-16 15:31] LABS: Color, Urine Pale Yellow (P-Yellow)
[2022-02-16 15:32] LABS: White Blood Cells, Urine TNTC /hpf (0-5)
[2022-02-16 15:33] LABS: Bacteria Mod /hpf; Squamous Epithelial Cells Few /hpf (Few)
== END | disposition home or self-care (01) ==
LOC: LAB 12:40 → LAB SHORT 12:40
PROVIDERS: Family Medicine
DX: E10.10 Type 1 diabetes mellitus with ketoacidosis without coma (principal); N39.0 Urinary tract infection, site not specified
CPT/HCPCS: 81001; 87077; 87086; 87186

== ENCOUNTER → 2022-03-16 | Outpatient (CLI) | payer MEDICARE, OTHER ==
[2022-03-16 15:21] LABS: Albumin, Blood 2.9 g/dL (3.4-5.0); Anion Gap 8 mmol/L (6-16); Blood Urea Nitrogen 36 mg/dL (8-24); Bun/Creatinine Ratio 18.5 (12.0-20.0); CO2, Blood 22 mmol/L (21-32); Calcium, Blood 9.8 mg/dL (8.5-10.1); Chloride, Blood 108 mmol/L (98-108); Creatinine, Blood 1.95 mg/dL (0.40-1.00); Glomerular Filtration Rate 25 (60-); Glucose, Blood 224 mg/dL (70-99); Phosphorus, Blood 3.1 mg/dL (2.5-4.9); Potassium, Blood 5.3 mmol/L (3.5-5.5); Sodium, Blood 138 mmol/L (136-145)
[2022-03-17 06:40] LABS: Hemoglobin 9.6 g/dL (11.5-16.0)
== END | disposition home or self-care (01) ==
LOC: LAB SHORT 09:10
PROVIDERS: Internal Medicine Nephrology
DX: N18.30 Chronic kidney disease, stage 3 unspecified (principal); D63.1 Anemia in chronic kidney disease; N25.81 Secondary hyperparathyroidism of renal origin; E55.9 Vitamin D deficiency, unspecified; E78.00 Pure hypercholesterolemia, unspecified; R76.9 Abnormal immunological finding in serum, unspecified; R94.5 Abnormal results of liver function studies; R94.6 Abnormal results of thyroid function studies
CPT/HCPCS: 80069; 83970; 84443; 85018

== ENCOUNTER → 2022-04-14 | Outpatient (CLI) | payer MEDICARE, OTHER | END | disposition home or self-care (01) | LOC: LAB SHORT 11:00 → LAB 11:00 | DX: E87.5 Hyperkalemia (principal) | CPT/HCPCS: 84132 ==

== ENCOUNTER 2022-06-22 02:00 | Emergency (ER) | payer MEDICARE, OTHER ==
[~2022-06-22] VITALS: Ht 160 cm; Wt 113.4 kg
[2022-06-22] MEDS ORDERED: TRADJENTA5 MG PO (02:48)
[2022-06-22 04:15] VITALS: BP 136/87
[2022-06-22 04:39] LABS: BASOPHILS ABSOLUTE AUTO 0.04 K/mm3 (0.00-0.23); BASOPHILS PERCENT AUTO 1 % (0-2); EOSINOPHILS ABSOLUTE AUTO 0.23 K/mm3 (0.00-0.68); EOSINOPHILS PERCENT AUTO 3 % (0-6); Hematocrit 31.9 % (33.0-51.0); Hemoglobin 9.7 g/dL (11.5-16.0); IMMATURE GRAN ABSOLUTE AUTO 0.04 K/mm3 (0.00-0.10); IMMATURE GRAN PERCENT AUTO 1 % (0-1); LYMPHOCYTES ABSOLUTE AUTO 1.44 K/mm3 (0.84-5.20); LYMPHOCYTES PERCENT AUTO 18 % (21-46); MONOCYTES ABSOLUTE AUTO 0.86 K/mm3 (0.16-1.47); MONOCYTES PERCENT AUTO 10 % (4-13); Mean Corpuscular HGB 25.2 pg (26.0-34.0); Mean Corpuscular HGB Conc 30.4 g/dL (31.5-36.5); Mean Corpuscular Volume 83 fL (80-100); NEUTROPHILS ABSOLUTE AUTO 5.63 K/mm3 (1.96-9.15); NEUTROPHILS PERCENT AUTO 68 % (41-73); Platelet Count 226 K/mm3 (150-400); RDW Coefficient Variation 15.7 % (11.7-14.2); RDW Standard Deviation 47.8 fL (35.1-46.3); Red Blood Cell Count 3.85 M/mm3 (3.80-5.20); White Blood Cell Count 8.24 K/mm3 (4.00-11.30)
[2022-06-22 04:53] LABS: International Normalized Ratio 1.03; Prothrombin Time Results 10.8 Sec (9.7-11.5)
[2022-06-22 04:57] LABS: Albumin, Blood 3.1 g/dL (3.4-5.0); Albumin/Globulin Ratio 0.8 (0.8-1.8); Bilirubin, Total 0.3 mg/dL (0.1-1.0); Bun/Creatinine Ratio 29.4 (12.0-20.0); Calcium, Blood 9.1 mg/dL (8.5-10.1); Creatinine, Blood 2.38 mg/dL (0.40-1.00); Globulin, Blood 3.8 g/dL (2.2-4.0); Potassium, Blood 5.3 mmol/L (3.5-5.5); Total Protein, Blood 6.9 g/dL (6.4-8.2)
== END 2022-06-22 05:50 | disposition home or self-care (01) ==
LOC: ER 02:00
PROVIDERS: Student in an Organized Health Care Education/Training Program
DX: R04.0 Epistaxis (principal); I12.9 Hypertensive chronic kidney disease with stage 1 through stage 4 chronic kidney disease, or unspecified chronic kidney disease; E11.22 Type 2 diabetes mellitus with diabetic chronic kidney disease; N18.30 Chronic kidney disease, stage 3 unspecified; E78.5 Hyperlipidemia, unspecified; J44.9 Chronic obstructive pulmonary disease, unspecified; K21.9 Gastro-esophageal reflux disease without esophagitis; Z88.0 Allergy status to penicillin; Z88.2 Allergy status to sulfonamides; Z88.8 Allergy status to other drugs, medicaments and biological substances; Z79.899 Other long term (current) drug therapy; Z79.4 Long term (current) use of insulin; Z79.84 Long term (current) use of oral hypoglycemic drugs; Z86.73 Personal history of transient ischemic attack (TIA), and cerebral infarction without residual deficits; Z87.891 Personal history of nicotine dependence
CPT/HCPCS: 30903; 36415; 80053; 85025; 85610; 86850; 86900; 86901; 99283-25; A9270

== ENCOUNTER 2022-07-21 11:49 | Emergency (ER) | payer MEDICARE, OTHER ==
[~2022-07-21] VITALS: Ht 154.9 cm; Wt 90.7 kg
[~2022-07-21 11:49] MED LIST changes: +TRADJENTA5 MG PO
[2022-07-21] MEDS ORDERED: CLIN300 PO (16:51)
[2022-07-21] MEDS ORDERED: NYSTOP15 GM TOP (16:53)
[2022-07-21 19:25] VITALS: BP 148/84
== END 2022-07-21 19:19 | disposition home or self-care (01) ==
LOC: ER 11:49
DX: L03.317 Cellulitis of buttock (principal); L02.31 Cutaneous abscess of buttock; B37.89 Other sites of candidiasis; L98.9 Disorder of the skin and subcutaneous tissue, unspecified; I12.9 Hypertensive chronic kidney disease with stage 1 through stage 4 chronic kidney disease, or unspecified chronic kidney disease; E11.22 Type 2 diabetes mellitus with diabetic chronic kidney disease; N18.30 Chronic kidney disease, stage 3 unspecified; Z88.0 Allergy status to penicillin; Z88.2 Allergy status to sulfonamides; Z86.73 Personal history of transient ischemic attack (TIA), and cerebral infarction without residual deficits; Z79.4 Long term (current) use of insulin; Z87.891 Personal history of nicotine dependence
CPT/HCPCS: 99283

== ENCOUNTER 2022-07-23 08:17 | Emergency (ER) | payer MEDICARE, OTHER ==
[~2022-07-23] VITALS: Ht 165.1 cm; Wt 117.9 kg
[~2022-07-23 08:17] MED LIST changes: +CLIN300 PO; +NYSTOP15 GM TOP
[2022-07-23 09:15] VITALS: BP 131/68
[2022-07-23 10:22] LABS: Hematocrit 32.1 % (33.0-51.0); Hemoglobin 9.6 g/dL (11.5-16.0); Mean Corpuscular HGB 25.3 pg (26.0-34.0); Mean Corpuscular HGB Conc 29.9 g/dL (31.5-36.5); Mean Corpuscular Volume 85 fL (80-100); Mean Platelet Volume 10.4 fL (9.1-12.4); Platelet Count 220 K/mm3 (150-400); RDW Coefficient Variation 16.8 % (11.7-14.2); RDW Standard Deviation 51.8 fL (35.1-46.3); Red Blood Cell Count 3.79 M/mm3 (3.80-5.20); White Blood Cell Count 7.74 K/mm3 (4.00-11.30)
== END 2022-07-23 11:45 | disposition home or self-care (01) ==
LOC: ER 08:17
PROVIDERS: Student in an Organized Health Care Education/Training Program
DX: R04.0 Epistaxis (principal); I12.9 Hypertensive chronic kidney disease with stage 1 through stage 4 chronic kidney disease, or unspecified chronic kidney disease; E11.22 Type 2 diabetes mellitus with diabetic chronic kidney disease; N18.30 Chronic kidney disease, stage 3 unspecified; Z86.73 Personal history of transient ischemic attack (TIA), and cerebral infarction without residual deficits; Z88.0 Allergy status to penicillin; Z88.2 Allergy status to sulfonamides; Z79.4 Long term (current) use of insulin; Z87.891 Personal history of nicotine dependence
CPT/HCPCS: 85027; A9270

== ENCOUNTER 2022-09-09 00:24 | Emergency (ER) | payer MEDICARE, OTHER ==
[~2022-09-09] VITALS: Ht 154.9 cm; Wt 81.7 kg
[2022-09-09 00:42] VITALS: BP 122/54
== END 2022-09-09 03:38 | disposition home or self-care (01) ==
LOC: ER 00:24
DX: R04.0 Epistaxis (principal); I12.9 Hypertensive chronic kidney disease with stage 1 through stage 4 chronic kidney disease, or unspecified chronic kidney disease; E11.22 Type 2 diabetes mellitus with diabetic chronic kidney disease; N18.30 Chronic kidney disease, stage 3 unspecified; E78.5 Hyperlipidemia, unspecified; F03.90 Unspecified dementia, unspecified severity, without behavioral disturbance, psychotic disturbance, mood disturbance, and anxiety; J44.9 Chronic obstructive pulmonary disease, unspecified; E21.3 Hyperparathyroidism, unspecified; Z86.73 Personal history of transient ischemic attack (TIA), and cerebral infarction without residual deficits; Z88.0 Allergy status to penicillin; Z88.2 Allergy status to sulfonamides; Z79.4 Long term (current) use of insulin; Z79.899 Other long term (current) drug therapy; Z87.891 Personal history of nicotine dependence
CPT/HCPCS: 99283; A9270

== ENCOUNTER 2022-09-12 03:51 | Emergency (ER) | payer MEDICARE, OTHER ==
[~2022-09-12] VITALS: Ht 157.5 cm; Wt 97.5 kg
[2022-09-12 04:00] VITALS: BP 110/81
== END 2022-09-12 05:44 | disposition home or self-care (01) ==
LOC: ER 03:51
DX: R04.0 Epistaxis (principal); Z87.891 Personal history of nicotine dependence
CPT/HCPCS: 99283

== ENCOUNTER 2022-10-11 08:33 | Emergency (ER) | payer MEDICARE, OTHER ==
[~2022-10-11] VITALS: Ht 157.5 cm; Wt 86.2 kg
[2022-10-11 08:45] VITALS: BP 141/75
== END 2022-10-11 12:28 | disposition home or self-care (01) ==
LOC: ER 08:33
DX: R04.0 Epistaxis (principal); Z87.891 Personal history of nicotine dependence; I12.9 Hypertensive chronic kidney disease with stage 1 through stage 4 chronic kidney disease, or unspecified chronic kidney disease; E11.22 Type 2 diabetes mellitus with diabetic chronic kidney disease; N18.30 Chronic kidney disease, stage 3 unspecified; E78.5 Hyperlipidemia, unspecified; Z86.73 Personal history of transient ischemic attack (TIA), and cerebral infarction without residual deficits; Z88.0 Allergy status to penicillin; Z88.1 Allergy status to other antibiotic agents; Z88.2 Allergy status to sulfonamides; Z79.4 Long term (current) use of insulin; Z79.2 Long term (current) use of antibiotics; Z79.899 Other long term (current) drug therapy
CPT/HCPCS: 99283

== ENCOUNTER → 2022-11-30 | Outpatient (CLI) | payer MEDICARE, OTHER ==
[2022-11-30 16:25] LABS: Albumin, Blood 3.1 g/dL (3.4-5.0); Anion Gap 8 mmol/L (6-16); Blood Urea Nitrogen 68 mg/dL (8-24); Bun/Creatinine Ratio 25.7 (12.0-20.0); CO2, Blood 26 mmol/L (21-32); Calcium, Blood 9.7 mg/dL (8.5-10.1); Chloride, Blood 97 mmol/L (98-108); Creatinine, Blood 2.65 mg/dL (0.40-1.00); Glomerular Filtration Rate 17 (60-); Glucose, Blood 600 mg/dL (70-99); Phosphorus, Blood 3.5 mg/dL (2.5-4.9); Potassium, Blood 4.4 mmol/L (3.5-5.5); Sodium, Blood 131 mmol/L (136-145)
== END | disposition home or self-care (01) ==
LOC: LAB SHORT 13:54 → LAB 13:54
PROVIDERS: Internal Medicine Nephrology
DX: N18.30 Chronic kidney disease, stage 3 unspecified (principal)
CPT/HCPCS: 80069

== ENCOUNTER 2022-12-26 18:42 | Emergency (ER) | payer MEDICARE, OTHER ==
[~2022-12-26] VITALS: Ht 157.5 cm; Wt 90.7 kg
[2022-12-26] MEDS ORDERED: BUMETANIDE2 M6 PO (19:15)
[2022-12-26] MEDS ORDERED: TRADJENTA5 MG PO (19:17)
[2022-12-26] MEDS ORDERED: ACET325 PO (19:18)
[2022-12-26] MEDS ORDERED: CLINDAMYCIN HC300 MG PO (21:57)
[2022-12-26] MEDS ORDERED: Cleocin HCl150 MG PO (21:57)
[2022-12-26 22:12] VITALS: BP 132/75
== END 2022-12-26 22:28 | disposition home or self-care (01) ==
LOC: ER 18:42
DX: N61.0 Mastitis without abscess (principal); I12.9 Hypertensive chronic kidney disease with stage 1 through stage 4 chronic kidney disease, or unspecified chronic kidney disease; E11.22 Type 2 diabetes mellitus with diabetic chronic kidney disease; N18.30 Chronic kidney disease, stage 3 unspecified; F03.90 Unspecified dementia, unspecified severity, without behavioral disturbance, psychotic disturbance, mood disturbance, and anxiety; J44.9 Chronic obstructive pulmonary disease, unspecified; Z87.891 Personal history of nicotine dependence; Z86.73 Personal history of transient ischemic attack (TIA), and cerebral infarction without residual deficits; Z88.0 Allergy status to penicillin; Z88.1 Allergy status to other antibiotic agents; Z88.2 Allergy status to sulfonamides; Z79.84 Long term (current) use of oral hypoglycemic drugs; Z79.899 Other long term (current) drug therapy
CPT/HCPCS: 76642; 99283-25; A9270

== ENCOUNTER 2023-03-21 17:19 | Emergency (ER) | payer MEDICARE, OTHER ==
[~2023-03-21] VITALS: Ht 154.9 cm; Wt 86.2 kg
[~2023-03-21 17:19] MED LIST changes: +BUMETANIDE2 M6 PO; +CLINDAMYCIN HC300 MG PO; +Cleocin HCl150 MG PO
[2023-03-21] MEDS ORDERED: ACET500 PO (18:31)
[2023-03-21] MEDS ORDERED: BUME2 PO (18:32)
[2023-03-21] MEDS ORDERED: OXYC5 PO (18:35)
[2023-03-21 20:45] LABS: Albumin, Blood 3.1 g/dL (3.4-5.0); Albumin/Globulin Ratio 0.8 (0.8-1.8); Beta-hydroxybutyrate 1.8 mg/dL (0.2-2.8); Bilirubin, Total 0.3 mg/dL (0.1-1.0); Bun/Creatinine Ratio 30.3 (12.0-20.0); Calcium, Blood 9.1 mg/dL (8.5-10.1); Creatinine, Blood 2.21 mg/dL (0.40-1.00); Globulin, Blood 3.8 g/dL (2.2-4.0); Total Protein, Blood 6.9 g/dL (6.4-8.2)
[2023-03-21 21:02] LABS: BASOPHILS ABSOLUTE AUTO 0.05 K/mm3 (0.00-0.23); BASOPHILS PERCENT AUTO 1 % (0-2); EOSINOPHILS ABSOLUTE AUTO 0.21 K/mm3 (0.00-0.68); EOSINOPHILS PERCENT AUTO 2 % (0-6); Hematocrit 34.4 % (33.0-51.0); Hemoglobin 11.1 g/dL (11.5-16.0); IMMATURE GRAN ABSOLUTE AUTO 0.13 K/mm3 (0.00-0.10); IMMATURE GRAN PERCENT AUTO 1 % (0-1); LYMPHOCYTES ABSOLUTE AUTO 1.91 K/mm3 (0.84-5.20); LYMPHOCYTES PERCENT AUTO 21 % (21-46); MONOCYTES ABSOLUTE AUTO 0.62 K/mm3 (0.16-1.47); MONOCYTES PERCENT AUTO 7 % (4-13); Mean Corpuscular HGB Conc 32.3 g/dL (31.5-36.5); Mean Corpuscular Volume 87 fL (80-100); Mean Platelet Volume 10.7 fL (9.1-12.4); NEUTROPHILS ABSOLUTE AUTO 6.07 K/mm3 (1.96-9.15); NEUTROPHILS PERCENT AUTO 68 % (41-73); Platelet Count 235 K/mm3 (150-400); RDW Coefficient Variation 14.8 % (11.7-14.2); RDW Standard Deviation 47.5 fL (35.1-46.3); Red Blood Cell Count 3.96 M/mm3 (3.80-5.20); White Blood Cell Count 8.99 K/mm3 (4.00-11.30)
[2023-03-22] VITALS: BP 133/84
== END 2023-03-22 02:14 | disposition home or self-care (01) ==
LOC: ER 17:19
PROVIDERS: Emergency Medicine
DX: E11.65 Type 2 diabetes mellitus with hyperglycemia (principal); I12.9 Hypertensive chronic kidney disease with stage 1 through stage 4 chronic kidney disease, or unspecified chronic kidney disease; E11.22 Type 2 diabetes mellitus with diabetic chronic kidney disease; N18.30 Chronic kidney disease, stage 3 unspecified; J44.9 Chronic obstructive pulmonary disease, unspecified; F03.90 Unspecified dementia, unspecified severity, without behavioral disturbance, psychotic disturbance, mood disturbance, and anxiety; Z87.891 Personal history of nicotine dependence; Z88.0 Allergy status to penicillin; Z88.2 Allergy status to sulfonamides; Z88.1 Allergy status to other antibiotic agents; Z79.899 Other long term (current) drug therapy
CPT/HCPCS: 80053; 82010; 82947; 83930; 85025; 96360; 99283-25; J1815; J7120

== ENCOUNTER 2023-03-28 08:46 | Emergency (ER) | payer MEDICARE, OTHER ==
[~2023-03-28] VITALS: Ht 154.9 cm; Wt 81.7 kg
[~2023-03-28 08:46] MED LIST changes: +BUME2 PO; +OXYC5 PO
[2023-03-28 12:00] VITALS: BP 124/71
[2023-04-04] MEDS ORDERED: DOCU100 PO (11:38)
== END 2023-03-28 12:45 | disposition home or self-care (01) ==
LOC: ER 08:46
DX: R04.0 Epistaxis (principal); Z87.891 Personal history of nicotine dependence; I12.0 Hypertensive chronic kidney disease with stage 5 chronic kidney disease or end stage renal disease; I12.9 Hypertensive chronic kidney disease with stage 1 through stage 4 chronic kidney disease, or unspecified chronic kidney disease; E11.22 Type 2 diabetes mellitus with diabetic chronic kidney disease; N18.30 Chronic kidney disease, stage 3 unspecified; E78.5 Hyperlipidemia, unspecified; J44.9 Chronic obstructive pulmonary disease, unspecified; Z86.73 Personal history of transient ischemic attack (TIA), and cerebral infarction without residual deficits; E21.3 Hyperparathyroidism, unspecified; K21.9 Gastro-esophageal reflux disease without esophagitis; F03.90 Unspecified dementia, unspecified severity, without behavioral disturbance, psychotic disturbance, mood disturbance, and anxiety; Z79.899 Other long term (current) drug therapy; Z88.0 Allergy status to penicillin; Z88.1 Allergy status to other antibiotic agents; Z88.2 Allergy status to sulfonamides
CPT/HCPCS: 99283; A9270

== ENCOUNTER 2023-04-04 09:50 | Emergency (ER) | payer MEDICARE, OTHER ==
[~2023-04-04] VITALS: Ht 165.1 cm; Wt 149.7 kg
[2023-04-04] MEDS ORDERED: NS 1,000 ML IV ONE (11:00)
[2023-04-04 11:17] LABS: Source, Urine Straight Cath
[2023-04-04 11:22] LABS: BASOPHILS ABSOLUTE AUTO 0.04 K/mm3 (0.00-0.23); BASOPHILS PERCENT AUTO 1 % (0-2); EOSINOPHILS ABSOLUTE AUTO 0.17 K/mm3 (0.00-0.68); EOSINOPHILS PERCENT AUTO 3 % (0-6); Hematocrit 32.3 % (33.0-51.0); Hemoglobin 10.3 g/dL (11.5-16.0); IMMATURE GRAN ABSOLUTE AUTO 0.14 K/mm3 (0.00-0.10); IMMATURE GRAN PERCENT AUTO 2 % (0-1); LYMPHOCYTES ABSOLUTE AUTO 1.16 K/mm3 (0.84-5.20); LYMPHOCYTES PERCENT AUTO 18 % (21-46); MONOCYTES ABSOLUTE AUTO 0.51 K/mm3 (0.16-1.47); MONOCYTES PERCENT AUTO 8 % (4-13); Mean Corpuscular HGB 28.9 pg (26.0-34.0); Mean Corpuscular HGB Conc 31.9 g/dL (31.5-36.5); Mean Corpuscular Volume 91 fL (80-100); Mean Platelet Volume 10.3 fL (9.1-12.4); NEUTROPHILS ABSOLUTE AUTO 4.52 K/mm3 (1.96-9.15); NEUTROPHILS PERCENT AUTO 69 % (41-73); Platelet Count 221 K/mm3 (150-400); RDW Coefficient Variation 14.6 % (11.7-14.2); RDW Standard Deviation 48.1 fL (35.1-46.3); Red Blood Cell Count 3.57 M/mm3 (3.80-5.20); White Blood Cell Count 6.54 K/mm3 (4.00-11.30)
[2023-04-04 11:28] LABS: Appearance, Urine Clear (Clear); Bilirubin, Urine Neg (Neg); Blood, Urine Neg (Neg); Color, Urine Yellow (P-Yellow); Glucose Qualitative, Urine 4+ (Neg); Ketones, Urine Neg (Neg); Leukocyte Esterase, Urine 1+ (Neg); Nitrite, Urine Neg (Neg); Protein, Urine Neg (Neg); Urobilinogen, Urine NORM (Normal)
[2023-04-04] MEDS ORDERED: INSULANI SC (11:39)
[2023-04-04 11:52] LABS: Beta-hydroxybutyrate 1.9 mg/dL (0.2-2.8)
[2023-04-04 11:56] LABS: Albumin, Blood 2.9 g/dL (3.4-5.0); Albumin/Globulin Ratio 0.8 (0.8-1.8); Bilirubin, Total 0.3 mg/dL (0.1-1.0); Bun/Creatinine Ratio 27.6 (12.0-20.0); Calcium, Blood 8.9 mg/dL (8.5-10.1); Creatinine, Blood 1.99 mg/dL (0.40-1.00); Globulin, Blood 3.5 g/dL (2.2-4.0); Potassium, Blood 4.7 mmol/L (3.5-5.5); Total Protein, Blood 6.4 g/dL (6.4-8.2)
[2023-04-04 12:26] LABS: Bacteria Few /hpf; Squamous Epithelial Cells Few /hpf (Few)
[2023-04-04 12:27] LABS: Red Blood Cells, Urine 0-2 /hpf (0-2); Yeast/Fungi Urine Rare /hpf
[2023-04-04] MEDS ORDERED: Insulin Regular 100 Unit/ML 1ML Dose IV ONE ×2 (12:45→12:55)
[2023-04-04 14:42] VITALS: BP 144/71
== END 2023-04-04 15:28 | disposition home or self-care (01) ==
LOC: ER 09:50
PROVIDERS: Emergency Medicine
DX: E11.65 Type 2 diabetes mellitus with hyperglycemia (principal); F03.90 Unspecified dementia, unspecified severity, without behavioral disturbance, psychotic disturbance, mood disturbance, and anxiety; E11.22 Type 2 diabetes mellitus with diabetic chronic kidney disease; N18.9 Chronic kidney disease, unspecified; Z87.891 Personal history of nicotine dependence; Z79.4 Long term (current) use of insulin; Z79.84 Long term (current) use of oral hypoglycemic drugs; Z79.891 Long term (current) use of opiate analgesic; Z79.899 Other long term (current) drug therapy; Z88.0 Allergy status to penicillin; Z88.1 Allergy status to other antibiotic agents; Z88.2 Allergy status to sulfonamides
CPT/HCPCS: 80053; 81001; 82010; 82800; 82947; 85025; 87077; 87086; 87186; 96360; 99283-25; J1815; J7030

== ENCOUNTER → 2023-07-04 | Outpatient (CLI) | payer MEDICARE, OTHER ==
[2023-07-04 14:58] LABS: Albumin, Blood 3.1 g/dL (3.4-5.0); Anion Gap 13 mmol/L (3-11); Blood Urea Nitrogen 71 mg/dL (8-24); Bun/Creatinine Ratio 31.6 (12.0-20.0); CO2, Blood 24 mmol/L (21-32); Calcium, Blood 9.3 mg/dL (8.5-10.1); Chloride, Blood 101 mmol/L (98-108); Creatinine, Blood 2.25 mg/dL (0.40-1.00); Glomerular Filtration Rate 21 (60-); Glucose, Blood 384 mg/dL (70-99); Phosphorus, Blood 4.2 mg/dL (2.5-4.9); Potassium, Blood 5.1 mmol/L (3.5-5.5); Sodium, Blood 133 mmol/L (136-145)
== END | disposition home or self-care (01) ==
LOC: LAB SHORT 13:45 → LAB 13:45
PROVIDERS: Internal Medicine Nephrology
DX: N18.30 Chronic kidney disease, stage 3 unspecified (principal); D75.1 Secondary polycythemia
CPT/HCPCS: 80069

== ENCOUNTER 2024-05-23 11:52 | Emergency (ER) | payer MEDICARE, OTHER ==
[~2024-05-23] VITALS: Ht 157.5 cm; Wt 113.4 kg
[2024-05-23] MEDS ORDERED: SENNA LAXATIVE8.6 MG PO (14:20)
[2024-05-23] MEDS ORDERED: LOKELMA10 GM PO (14:21)
[2024-05-23] MEDS ORDERED: LOPE2C PO (14:22)
[2024-05-23] MEDS ORDERED: Milk Of Ma400 MG/5 M PO (14:23)
[2024-05-23 15:00] VITALS: BP 133/83
[2024-05-23] MEDS ORDERED: Lidocaine/Tetracaine/Epinephr 3 ML GEL SYRINGE TOP ONE (15:05)
[2024-05-23] MEDS ORDERED: CEPH500 PO ×2 (16:14→17:08)
== END 2024-05-23 18:29 | disposition home or self-care (01) ==
LOC: ER 11:52
DX: L02.511 Cutaneous abscess of right hand (principal); L03.011 Cellulitis of right finger; E11.22 Type 2 diabetes mellitus with diabetic chronic kidney disease; N18.9 Chronic kidney disease, unspecified; Z86.59 Personal history of other mental and behavioral disorders
CPT/HCPCS: 99283

== ENCOUNTER 2024-06-27 07:33 | Emergency (ER) | payer MEDICARE, OTHER ==
[~2024-06-27] VITALS: Ht 157.5 cm; Wt 145.2 kg
[~2024-06-27 07:33] MED LIST changes: +CEPH500 PO; +LOPE2C PO; +SENNA LAXATIVE8.6 MG PO
[2024-06-27] MEDS ORDERED: NS 1,000 ML IV SCH (08:00)
[2024-06-27] MEDS ORDERED: Morphine Sulfate 4 MG/1 ML Injection IV ONE (08:00)
[2024-06-27 08:23] LABS: BASOPHILS ABSOLUTE AUTO 0.04 K/mm3 (0.00-0.23); BASOPHILS PERCENT AUTO 0 % (0-2); EOSINOPHILS ABSOLUTE AUTO 0.13 K/mm3 (0.00-0.68); EOSINOPHILS PERCENT AUTO 1 % (0-6); Hematocrit 31.3 % (33.0-51.0); Hemoglobin 9.5 g/dL (11.5-16.0); IMMATURE GRAN ABSOLUTE AUTO 0.22 K/mm3 (0.00-0.10); IMMATURE GRAN PERCENT AUTO 2 % (0-1); LYMPHOCYTES ABSOLUTE AUTO 0.65 K/mm3 (0.84-5.20); LYMPHOCYTES PERCENT AUTO 5 % (21-46); MONOCYTES ABSOLUTE AUTO 1.14 K/mm3 (0.16-1.47); MONOCYTES PERCENT AUTO 9 % (4-13); Mean Corpuscular HGB 25.5 pg (26.0-34.0); Mean Corpuscular HGB Conc 30.4 g/dL (31.5-36.5); Mean Corpuscular Volume 84 fL (80-100); Mean Platelet Volume 9.7 fL (9.1-12.4); NEUTROPHILS ABSOLUTE AUTO 10.46 K/mm3 (1.96-9.15); NEUTROPHILS PERCENT AUTO 83 % (41-73); Platelet Count 235 K/mm3 (150-400); RDW Standard Deviation 45.9 fL (35.1-46.3); Red Blood Cell Count 3.72 M/mm3 (3.80-5.20); White Blood Cell Count 12.64 K/mm3 (4.00-11.30)
[2024-06-27 09:02] LABS: Bun/Creatinine Ratio 25.1 (12.0-20.0); Creatinine, Blood 2.35 mg/dL (0.40-1.00); Potassium, Blood 4.9 mmol/L (3.5-5.5)
[2024-06-27] MEDS ORDERED: CefTRIAXone Sodium 1,000 MG in NS 100 ML IV ONE (09:55)
[2024-06-27] MEDS ORDERED: Doxycycline Hyclate 100 MG TAB PO ONE (09:55)
[2024-06-27] MEDS ORDERED: DOXY100 PO (10:29)
[2024-06-27] MEDS ORDERED: OXYC5 PO (10:39)
[2024-06-27 11:53] VITALS: BP 119/55
== END 2024-06-27 11:53 | disposition home or self-care (01) ==
LOC: ER 07:33
PROVIDERS: Emergency Medicine
DX: L02.416 Cutaneous abscess of left lower limb (principal); L03.116 Cellulitis of left lower limb; E11.22 Type 2 diabetes mellitus with diabetic chronic kidney disease; I12.9 Hypertensive chronic kidney disease with stage 1 through stage 4 chronic kidney disease, or unspecified chronic kidney disease; N18.4 Chronic kidney disease, stage 4 (severe); J44.9 Chronic obstructive pulmonary disease, unspecified; F03.90 Unspecified dementia, unspecified severity, without behavioral disturbance, psychotic disturbance, mood disturbance, and anxiety; Z88.0 Allergy status to penicillin; Z88.2 Allergy status to sulfonamides; Z88.8 Allergy status to other drugs, medicaments and biological substances; Z79.899 Other long term (current) drug therapy; Z79.4 Long term (current) use of insulin; Z86.73 Personal history of transient ischemic attack (TIA), and cerebral infarction without residual deficits
CPT/HCPCS: 10061; 80048; 83605; 85025; 96365-59; 96375-59; 99283-25; A9270; J0696; J2270; J7030

== ENCOUNTER 2024-07-30 17:31 | Emergency (ER) | payer MEDICARE, OTHER ==
[~2024-07-30] VITALS: Ht 165.1 cm; Wt 99.8 kg
[~2024-07-30 17:31] MED LIST changes: +DOXY100 PO
[2024-07-30 19:22] VITALS: BP 122/76
[2024-07-30 20:28] LABS: BASOPHILS ABSOLUTE AUTO 0.03 K/mm3 (0.00-0.23); BASOPHILS PERCENT AUTO 0 % (0-2); EOSINOPHILS ABSOLUTE AUTO 0.17 K/mm3 (0.00-0.68); EOSINOPHILS PERCENT AUTO 1 % (0-6); Hematocrit 28.1 % (33.0-51.0); Hemoglobin 8.2 g/dL (11.5-16.0); IMMATURE GRAN ABSOLUTE AUTO 0.12 K/mm3 (0.00-0.10); IMMATURE GRAN PERCENT AUTO 1 % (0-1); LYMPHOCYTES ABSOLUTE AUTO 1.17 K/mm3 (0.84-5.20); LYMPHOCYTES PERCENT AUTO 10 % (21-46); MONOCYTES PERCENT AUTO 9 % (4-13); Mean Corpuscular HGB 24.5 pg (26.0-34.0); Mean Corpuscular HGB Conc 29.2 g/dL (31.5-36.5); Mean Corpuscular Volume 84 fL (80-100); Mean Platelet Volume 9.3 fL (9.1-12.4); NEUTROPHILS ABSOLUTE AUTO 9.55 K/mm3 (1.96-9.15); NEUTROPHILS PERCENT AUTO 79 % (41-73); Platelet Count 263 K/mm3 (150-400); RDW Coefficient Variation 16.3 % (11.7-14.2); RDW Standard Deviation 49.8 fL (35.1-46.3); Red Blood Cell Count 3.35 M/mm3 (3.80-5.20); White Blood Cell Count 12.14 K/mm3 (4.00-11.30)
[2024-07-30 20:48] LABS: Albumin, Blood 2.5 g/dL (3.4-5.0); Albumin/Globulin Ratio 0.6 (0.8-1.8); Bilirubin, Total 0.3 mg/dL (0.1-1.0); Bun/Creatinine Ratio 19.8 (12.0-20.0); Calcium, Blood 9.8 mg/dL (8.5-10.1); Creatinine, Blood 2.63 mg/dL (0.40-1.00); Globulin, Blood 4.3 g/dL (2.2-4.0); Potassium, Blood 4.9 mmol/L (3.5-5.5); Total Protein, Blood 6.8 g/dL (6.4-8.2)
[2024-07-30] MEDS ORDERED: Doxycycline Hyclate 100 MG TAB PO ONE (22:35)
[2024-07-30] MEDS ORDERED: FentaNYL Citrate 50 MCG/ML 2 ML Injection IV ONE (23:30)
[2024-07-31] MEDS ORDERED: FentaNYL Citrate 50 MCG/ML 2 ML Injection IV ONE ×2 (00:45→01:35)
[2024-07-31] MEDS ORDERED: Midazolam HCL 1 MG/ML 5MLVIAL IV ONE (00:45)
[2024-07-31] MEDS ORDERED: Doxycycline Hy100 M3 PO (01:56)
== END 2024-07-31 03:09 | disposition home or self-care (01) ==
LOC: ER 17:31
PROVIDERS: Student in an Organized Health Care Education/Training Program
DX: L02.416 Cutaneous abscess of left lower limb (principal); L03.116 Cellulitis of left lower limb; F03.90 Unspecified dementia, unspecified severity, without behavioral disturbance, psychotic disturbance, mood disturbance, and anxiety; E11.22 Type 2 diabetes mellitus with diabetic chronic kidney disease; I12.9 Hypertensive chronic kidney disease with stage 1 through stage 4 chronic kidney disease, or unspecified chronic kidney disease; N18.4 Chronic kidney disease, stage 4 (severe); J44.9 Chronic obstructive pulmonary disease, unspecified; Z88.0 Allergy status to penicillin; Z88.2 Allergy status to sulfonamides; Z88.8 Allergy status to other drugs, medicaments and biological substances; Z79.899 Other long term (current) drug therapy; Z79.4 Long term (current) use of insulin; Z86.73 Personal history of transient ischemic attack (TIA), and cerebral infarction without residual deficits
CPT/HCPCS: 10061; 73701; 80053; 85025; 96374-59; 96375-59; 96376-59; 99284-25; A9270; J2250; J3010; Q9967

== ENCOUNTER → 2024-11-08 | Outpatient (CLI) | payer MEDICARE, OTHER ==
[~2024-11-08] MED LIST changes: +Doxycycline Hy100 M3 PO
[2024-11-08 10:00] LABS: Source, Urine Clean Catch
[2024-11-08 10:51] LABS: Bilirubin, Urine Neg (Neg); Color, Urine Yellow (P-Yellow); Glucose Qualitative, Urine 2+ (Neg); Ketones, Urine Neg (Neg); Leukocyte Esterase, Urine 3+ (Neg); Protein, Urine 2+ (Neg); Specific Gravity, Urine 1.010 (1.003-1.022); Urobilinogen, Urine NORM (Normal)
[2024-11-08 11:25] LABS: Red Blood Cells, Urine 25-50 /hpf (0-2); White Blood Cells, Urine 50-100 /hpf (0-5)
== END ==
LOC: LAB 08:10 → LAB SHORT 08:10
PROVIDERS: Family Medicine
DX: N39.0 Urinary tract infection, site not specified (principal)
CPT/HCPCS: 81001; 87077; 87086; 87186